=== PATIENT | female | born 1995 | race Caucasian/White ===

== ENCOUNTER 2018-01-21 23:08 | Emergency (ER) | payer SELFPAY ==
[~2018-01-21] VITALS: Ht 154.9 cm; Wt 82.6 kg
[~2018-01-21 23:08] MED LIST: CEPH-38 PO; NAPR-243 PO; ONDA8TAB13 PO; PHEN100T17 PO
--- OUTSIDE RECORDS SUMMARY | 2018-01-21 23:34 | XMS REPORT ---
Author Author MAYA MURRIETA Organization 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 [address] [address] Nov, Rash R21 ; Menstrual irregularity N92.6 and Dysthymia F34.1 [facility] [address] [id number] [place] [address] Oct, Acute nasopharyngitis J00 [facility] [id number] [place] [address] Aug, Dysthymia F34.1 and Mentally challenged F79 [facility] [id number] [place] [address] Jul, Dysthymia F34.1 and Dysfunctional uterine bleeding N93.8 [facility] [id number] [place] [address] June, Fever blister B00.1 [facility] [id number] [place] [address] Aug, Lower abdominal pain R10.30 and Acute cystitis without hematuria N30.00 [facility] [id number] [place] [address] May, Urinary tract infection without hematuria, site unspecified N39.0 [facility] [address] [address] 07 May, 2016 Vomiting R11.10 ; Dysuria R30.0 and Acute cystitis without hematuria N30.00 [facility] [address] [address] 17 Sep, 2015 Encounter for immunization Z23 [facility] [address] [id number] [id number] 26 May, 2015 Dental examination Z01.20 [facility] [id number] [place] [address] 15 May, 2015 Encounter for observation for other suspected diseases and conditions ruled out Z03.89 [facility] [address] [place] [address] 14 Apr, 2015 Sports physical Z02.5 ; Dietary counseling Z71.3 ; Exercise counseling Z71.89 ; Encounter for well child visit with abnormal findings Z00.121 ; Allergic rhinitis, unspecified J30.9 ; Postnasal drip R09.82 ; Obesity , unspecified obesity severity, unspecified obesity type E66.9 ; Acanthosis nigricans L83 and Encounter for immunization Z23 [facility] [address] [address] 20 Nov, 2008 IMMUNIZATIONS No Known Immunizations SOCIAL HISTORY Never Assessed REASON FOR VISIT sores on arms - mostly on left arm but some on right - x1 1/2 week kPage ANNI , wants test - says store brand showed positive Katie MA PLAN OF CARE Activity Details Follow Up 6 Months Reason: VITAL SIGNS Height 63.5 in 2017-11-21 Weight 190.8 lbs 2017-11-21 Temperature 97.8 degrees Fahrenheit 2017-11-21 Heart Rate 83 bpm 2017-11-21 Respiratory Rate 18 2017-11-21 BMI 33.26 kg/m2 2017-11-21 Blood pressure systolic 116 mmHg 2017-11-21 Blood pressure diastolic 68 mmHg 2017-11-21 MEDICATIONS Medication Instructions Dosage Frequency Start Date End Date Duration Status Zoloft 100 mg Orally Once a day 1 tablet 24h 28 Jul, 2017 30 day(s) Active Triamcinolone Acetonide 0.1 % Externally Twice a day 1 application to affected area 12h 12 Nov, 2017 Active Bromfed DM 30-2-10 MG/5ML Orally every 4 hrs 10 ml as needed 4h 10 Oct, 2017 5 days Active RESULTS Name Result Date Reference Range TEST, URINE (IN HOUSE) 2017-11-21 RESULTS neg Lot # [id number] Control positive Exp date 05/11/2019 PROCEDURES Procedure Date Ordered Result Body Site URINE TEST Nov 21, 2017 INSTRUCTIONS MEDICATIONS ADMINISTERED No Known Medications MEDICAL (GENERAL) HISTORY Type Description Date Medical History depression Surgical History Tonsillectomy 02/2002
--- OUTSIDE RECORDS SUMMARY | 2018-01-21 23:35 | XMS REPORT ---
Author MYLA Benson [facility] eClinicalWorks Address Unknown Phone Unavailable Care Team Providers Care Measuring Machine Operator Name Role Phone MYLA MELGAR Unavailable Allergies No Known Allergies Problems Problem Type Condition Code Onset Dates Condition Status Assessment Encounter for immunization Z23 Active Medications No Known Medications Procedures Procedure Coding System Code Date BEXSERO (MEN B) CPT-4 23901 Sep 27, 2015 GARDISIL 9 CPT-4 71720 Sep 27, 2015 MENINGOCOCCAL (MENVEO) CPT-4 53014 Sep 27, 2015 IMMUNIZATION ADMIN, EACH ADD (please include units) CPT-4 80466 Sep 27, 2015 SINGLE IMMUNIZATION ADMIN CPT-4 79220 Sep 27, 2015 Results No Known Results Immunizations Vaccine Administration Date MENINGOCOCCAL (MENVEO) Sep 27, 2015 BEXSERO (MEN B) Sep 27, 2015 GARDASIL 9 Sep 27, 2015 Summary Purpose eClinicalWorks Submission
--- OUTSIDE RECORDS SUMMARY | 2018-01-21 23:35 | XMS REPORT ---
Author Author MAYA MURRIETA [facility] Address [address] [place] [address] Care Team Providers Care Network Services Project Manager Name Role Phone MAYA MURRIETA Unavailable PROBLEMS Type Condition ICD9-CM Code [id number] Code Onset Dates Condition Status SNOMED Code Problem Mentally challenged F79 Active 218794184 Problem Dysthymia F34.1 Active 10590818 Problem Dysfunctional uterine bleeding N93.8 Active 20600606 ALLERGIES No Known Allergies ENCOUNTERS Encounter Location Date Diagnosis [place] [address] [address] Aug, Dysthymia F34.1 and Mentally challenged F79 [facility] [address] [address] Jul, Dysthymia F34.1 and Dysfunctional uterine bleeding N93.8 [facility] [address] [address] June, Fever blister B00.1 [facility] [address] [address] Aug, Lower abdominal pain R10.30 and Acute cystitis without hematuria N30.00 [facility] [address] [address] May, Urinary tract infection without hematuria, site unspecified N39.0 [place] [address] [address] May, Vomiting R11.10 ; Dysuria R30.0 and Acute cystitis without hematuria N30.00 [place] [address] [address] Sep, Encounter for immunization Z23 [facility] [address] [id number] [id number] May, Dental examination Z01.20 [facility] [address] [facility] [id number] [address] 15 May, 2015 Encounter for observation for other suspected diseases and conditions ruled out Z03.89 [facility] [address] [facility] [id number], [place] [address] 14 Apr, 2015 Sports physical Z02.5 ; Dietary counseling Z71.3 ; Exercise counseling Z71.89 ; Encounter for well child visit with abnormal findings Z00.121 ; Allergic rhinitis, unspecified J30.9 ; Postnasal drip R09.82 ; Obesity , unspecified obesity severity, unspecified obesity type E66.9 ; Acanthosis nigricans L83 and Encounter for immunization Z23 [facility] [address] [facility] [id number], [place] [address] Nov, IMMUNIZATIONS No Known Immunizations SOCIAL HISTORY Never Assessed REASON FOR VISIT Establish Care, PT has questions about fertility and wanting a note to give to her landlord stating she can have a dog-[place] PLAN OF CARE Activity Details Follow Up 4 Weeks Reason: VITAL SIGNS Height 63.5 in 2017-08-07 Weight 195.6 lbs 2017-08-07 Temperature 98.2 degrees Fahrenheit 2017-08-07 Heart Rate 80 bpm 2017-08-07 Respiratory Rate 18 2017-08-07 BMI 34.1 kg/m2 2017-08-07 Blood pressure systolic 104 mmHg 2017-08-07 Blood pressure diastolic 76 mmHg 2017-08-07 MEDICATIONS Medication Instructions Dosage Frequency Start Date End Date Duration Status Amoxicillin 500 MG by oral route 2 times a day 1 capsule 12h Active Ibuprofen 800 MG by oral route 3 times a day 1 tablet 8h Active Zoloft 50 mg Orally Once a day 1 tablet 24h Jul, 30 day(s) Active RESULTS No Results PROCEDURES No Known procedures INSTRUCTIONS MEDICATIONS ADMINISTERED No Known Medications MEDICAL (GENERAL) HISTORY Type Description Date Medical History depression Surgical History Tonsillectomy 02/2002
--- OUTSIDE RECORDS SUMMARY | 2018-01-21 23:35 | XMS REPORT ---
Author BETITO [facility] eClinicalWorks Address Unknown Phone Unavailable Care Team Providers Care Accounting Clerk Name Role Phone BETITO SALINAS CP Unavailable Allergies, Adverse Reactions, Alerts Substance Reaction Event Type N.K.D.A. Info Not Available Non Drug Allergy Problems Problem Type Condition Code Onset Dates Condition Status Assessment Dental examination Z01.20 Active Medications Medication Code System Code Instructions Start Date End Date Status Dosage Ibuprofen NDC 0 [place] [address]-82 10 MG Orally Once a day 1 tablet Procedures Procedure Coding System Code Date SEALANT - PER TOOTH CPT-4 D1351 June 06, 2015 SEALANT - PER TOOTH CPT-4 D1351 June 06, 2015 PROPHYLAXIS - ADULT CPT-4 D1110 June 06, 2015 SEALANT - PER TOOTH CPT-4 D1351 June 06, 2015 SEALANT - PER TOOTH CPT-4 D1351 June 06, 2015 TOPICAL FLUORIDE VARNISH CPT-4 D1206 June 06, 2015 SEALANT - PER TOOTH CPT-4 D1351 June 06, 2015 SEALANT - PER TOOTH CPT-4 D1351 June 06, 2015 SEALANT - PER TOOTH CPT-4 D1351 June 06, 2015 SEALANT - PER TOOTH CPT-4 D1351 June 06, 2015 Results No Known Results Summary Purpose eClinicalWorks Submission
--- OUTSIDE RECORDS SUMMARY | 2018-01-21 23:35 | XMS REPORT ---
Author Author MAYA MURRIETA Organization [facility] Address [address] [place] [address] Care Team Providers Care Repair Coil Winder Name Role Phone MAYA MURRIETA Unavailable PROBLEMS Unknown Problems ALLERGIES No Known Allergies ENCOUNTERS Encounter Location Date Diagnosis [address] [address] Aug, Lower abdominal pain R10.30 and Acute cystitis without hematuria N30.00 [place] [id number] [place] [address] 10 May, 2016 Urinary tract infection without hematuria, site unspecified N39.0 [place] [id number] [place] [address] 07 May, 2016 Vomiting R11.10 ; Dysuria R30.0 and Acute cystitis without hematuria N30.00 [place] [id number] [place] [address] 17 Sep, 2015 Encounter for immunization Z23 [place] [address] [id number] [id number] 26 May, 2015 Dental examination Z01.20 [facility] [address] [id number] [place] [address] 15 May, 2015 Encounter for observation for other suspected diseases and conditions ruled out Z03.[address] [address] 14 Apr, 2015 Sports physical Z02.5 ; Dietary counseling Z71.3 ; Exercise counseling Z71.89 ; Encounter for well child visit with abnormal findings Z00.121 ; Allergic rhinitis, unspecified J30.9 ; Postnasal drip R09.82 ; Obesity , unspecified obesity severity, unspecified obesity type E66.9 ; Acanthosis nigricans L83 and En[facility] for [facility] Z23 [facility] [address] [facility] [id number] [address] Nov, IMMUNIZATIONS No Known Immunizations SOCIAL HISTORY Never Assessed REASON FOR VISIT stomach pain x 5 days. Pt states that she is moving her bowels alright. She did take a test at a facility 2 days ago and it was negative. They told her to try again in 2 weeks. Pt has been vomiting off and on during this time. SNEHA Stanley PLAN OF CARE Activity Details Follow Up prn Reason: VITAL SIGNS Height 63.5 in 2016-08-30 Weight 188 lbs 2016-08-30 Temperature 97.9 degrees Fahrenheit 2016-08-30 Heart Rate 88 bpm 2016-08-30 Respiratory Rate 18 2016-08-30 BMI 32.78 kg/m2 2016-08-30 Blood pressure systolic 116 mmHg 2016-08-30 Blood pressure diastolic 78 mmHg 2016-08-30 MEDICATIONS Medication Instructions Dosage Frequency Start Date End Date Duration Status Bactrim DS 800-160 MG Orally Twice a day 1 tablet 12h Aug,Aug 03 days Active Iron (Ferrous Sulfate) 142 (45 Fe) MG Orally Once a day 1 tablet 24h Active RESULTS No Results PROCEDURES Procedure Date Ordered Result Body Site URINALYSIS, AUTO, W/O SCOPE August 30, 2016 INSTRUCTIONS MEDICATIONS ADMINISTERED No Known Medications MEDICAL (GENERAL) HISTORY Type Description Date Surgical History Tonsillectomy
--- OUTSIDE RECORDS SUMMARY | 2018-01-21 23:35 | XMS REPORT | Continuity of Care Document ---
Author Author [facility] Organization [facility] Address Unknown Phone Unavailable Allergies Active Description Code Type Severity Reaction Onset Reported/Identified Relationship to Patient Clinical Status Yes NO KNOWN DRUG ALLERGIES NO KNOWN DRUG ALLERG UNKNOWN Yes NO KNOWN DRUG ALLERGIES UNKNOWN NO KNOWN DRUG ALLERG Yes No Known Drug Allergies [id number] Drug Allergy Unknown N/A 06/18/2014 Medications Medication Packaging Start Date Stop Date Route Dosage Sig IBUPROFEN TAB 600 MG (MOTRIN) MG 03/17/2016 PRN ONCE FAMOTIDINE TAB 20 MG (PEPCID) MG 06/16/2016 ONCE&1638 GI COCKTAIL SINGLE DOSE LIQ (GRASSHOPPER) ML 06/27/2016 06/27/2016 ONCE&2224 GI COCKTAIL SINGLE DOSE LIQ (GRASSHOPPER) ML 05/15/2017 05/15/2017 ONCE&0932 DIPHENHYDRAMINE CAP 25 MG (BENADRYL) MG 05/25/2017 05/25/2017 PRN ONCE METHYLPREDNISOLONE VIAL INJ 125 MG/2CC (SOLU-MEDROL VIAL) MG 05/25/2017 05/25/2017 ONCE&0132 Problems Date Dx Coded Attending Type Code Diagnosis Diagnosed By 06/18/2014 FLOYD ALLEN Ot 599.70 HEMATURIA, UNSPECIFIED 06/18/2014 FLOYD ALLEN Ot 788.0 RENAL COLIC 03/17/2016 SEB KIRK 074.0 HERPANGINA 03/17/2016 SEB KIRK B08.5 ENTEROVIRAL VESICULAR PHARYNGITIS 06/16/2016 SEB KIRK 285.9 ANEMIA, UNSPECIFIED 06/16/2016 SEB KIRK 558.9 OTHER AND UNSPECIFIED NONINFECTIOUS GASTROENTERITIS AND COLITIS 06/16/2016 SEB KIRK D64.9 ANEMIA, UNSPECIFIED 06/16/2016 SEB KIRK K52.9 NONINFECTIVE GASTROENTERITIS AND COLITIS, UNSPECIFIED 06/27/2016 Anika Horvath A 535.00 ACUTE GASTRITIS, WITHOUT MENTION OF HEMORRHAGE 06/27/2016 Anika Horvath Sorin K29.00 ACUTE GASTRITIS WITHOUT BLEEDING 05/15/2017 Reggie Maradiaga 599.0 URINARY TRACT INFECTION, SITE NOT SPECIFIED 05/15/2017 Reggie Maradiaga N39.0 URINARY TRACT INFECTION, SITE NOT SPECIFIED 05/25/2017 Jcarlos Segal 599.0 URINARY TRACT INFECTION, SITE NOT SPECIFIED 05/25/2017 Jcarlos Segal 693.0 DERMATITIS DUE TO DRUGS AND MEDICINES TAKEN INTERNALLY 05/25/2017 Jcarlos Segal 995.29 UNSPECIFIED ADVERSE EFFECT OF OTHER DRUG, MEDICINAL AND BIOLOGICAL SUBSTANCE 05/25/2017 Jcarlos Segal L27.0 GEN SKIN ERUPTION DUE TO DRUGS AND MEDS TAKEN INTERNALLY 05/25/2017 Jcarlos Segal N39.0 URINARY TRACT INFECTION, SITE NOT SPECIFIED 05/25/2017 Jcarlos Segal T36.95XA ADVERSE EFFECT OF UNSP SYSTEMIC ANTIBIOTIC, INIT ENCNTR Procedures There is no data. Results Test Result Range Influenza - 03/17/16 15:12 Influenza NEGATIVE FOR A and B 0.00-0.00 Urinalysis - 03/17/16 15:20 Icotest N/A Negative Urine Volume Urine Volume Sufficient (10mL) Urine Yeast No Yeast present Urine-Appearance Cloudy Clear Urine-Bacteria Negative Urine-Bilirubin Negative Negative Urine-Blood 3+ Negative Urine-Color Red Colorless-Lt. Yellow Urine-Glucose Negative Negative Urine-Ketones Negative Negative Urine-Leukocytes Trace Negative Urine-Mucus 1+ Urine-Nitrite Negative Negative Urine-Other Urine Saved if Culture Needed (48hrs from time of collection) Urine-pH 6.0 5-8.5 Urine-Protein 1+ Negative Urine-RBC TNTC Urine-Specific Frakes 1.025 1.000-1.030 Urine-WBC 2-5/HPF Urobilinogen 1.0 E.U./dL 0.2-1.0 Comprehensive Metabolic Panel - 06/16/16 16:35 Albumin 4.2 g/dL 3.6-5.1 ALP 89 U/L 35-130 ALT 25 U/L 6-45 Anion Gap 15 6-14 AST 15 U/L 2-40 BUN 10 mg/dL 5-25 Calcium 9.5 mg/dL 8.3-10.4 Chloride 105 mmol/L 95-114 CO2 26 mEq/L 22-33 Creat 0.66 mg/dL 0.50-1.50 eGFR 116 mL/min/1.73m2 >59 Globulin 3.2 g/dL 2.3-3.5 Glucose 113 mg/dL 70-110 Osmo 293 280-295 Potassium 3.7 mmol/L 3.5-5.3 Sodium 142 mmol/L 134-148 TBil 0.2 mg/dL 0.2-1.2 TP 7.4 g/dL 6.0-8.3 Lipase - 06/16/16 16:35 Lipase 11 U/L 7-59 Urinalysis - 06/16/16 16:45 Icotest N/A Negative Urine Volume Urine Volume Sufficient (10mL) Urine Yeast No Yeast present Urine-Appearance Clear Clear Urine-Bacteria 1+ Urine-Bilirubin Negative Negative Urine-Blood Negative Negative Urine-Color Yellow Colorless-Lt. Yellow Urine-Epithelial Cells 0-5/HPF Urine-Glucose Negative Negative Urine-Ketones Negative Negative Urine-Leukocytes Negative Negative Urine-Nitrite Negative Negative Urine-pH 7.0 5-8.5 Urine-Protein Negative Negative Urine-RBC 0-2/HPF Urine-Specific Frakes 1.020 1.000-1.030 Urine-WBC 0-2/HPF Urobilinogen 0.2 E.U./dL 0.2-1.0 IFOBT Occult Blood - 06/16/16 17:11 IFOBT Occult Blood NEGATIVE Negative Comprehensive Metabolic Panel - 06/27/16 22:00 Albumin 3.8 g/dL 3.6-5.1 ALP 83 U/L 35-130 ALT 21 U/L 6-45 Anion Gap 13 6-14 AST 14 U/L 2-40 BUN 6 mg/dL 5-25 Calcium 9.1 mg/dL 8.3-10.4 Chloride 107 mmol/L 95-114 CO2 26 mEq/L 22-33 Creat 0.65 mg/dL 0.50-1.50 eGFR 118 mL/min/1.73m2 >59 Globulin 3.7 g/dL 2.3-3.5 Glucose 106 mg/dL 70-110 Osmo 293 280-295 Potassium 3.4 mmol/L 3.5-5.3 Sodium 143 mmol/L 134-148 TBil 0.3 mg/dL 0.2-1.2 TP 7.5 g/dL 6.0-8.3 Urinalysis - 05/15/17 09:16 Icotest N/A Negative Urine Volume Urine Volume Sufficient (10mL) Urine Yeast Yeast Present Urine-Appearance Cloudy Clear Urine-Bacteria 4+ Urine-Bilirubin Negative Negative Urine-Blood Negative Negative Urine-Color Yellow Colorless-Lt. Yellow Urine-Epithelial Cells TNTC Urine-Glucose Negative Negative Urine-Ketones Negative Negative Urine-Leukocytes 1+ Negative Urine-Mucus 4+ Urine-Nitrite Negative Negative Urine-Other Culture to follow Urine-pH 5.5 5-8.5 Urine-Protein Trace Negative Urine-RBC Rare/HPF Urine-Specific Frakes >=1.030 1.000-1.030 Urine-WBC TNTC Urobilinogen 0.2 E.U./dL 0.2-1.0 Urine Culture - 05/15/17 09:16 PRELIM CULTURE RESULTS 20,000-50,000 Yeast FINAL CULTURE RESULTS 20,000-50,000 Yeast. No Further Workup done. MEDIA PLATED Setup at 09:37 on 05/15/2017 CULTURE SOURCE void Urine Culture - 05/25/17 01:37 PRELIM CULTURE RESULTS 20,000-50,000 Gram Positive Mixed Yesy [id number] Skin Contaminant FINAL CULTURE RESULTS No Further Workup done MEDIA PLATED Setup at 02:11 on 05/25/2017 CULTURE SOURCE voided urine Urinalysis - 05/25/17 01:37 Icotest N/A Negative Urine Crystals Amorphous material: few/HPF Urine Volume Urine Volume Sufficient (10mL) Urine-Appearance Turbid Clear Urine-Bacteria Trace Urine-Bilirubin Negative Negative Urine-Blood Negative Negative Urine-Color Yellow Colorless-Lt. Yellow Urine-Epithelial Cells TNTC Urine-Glucose Negative Negative Urine-Ketones Negative Negative Urine-Leukocytes 1+ Negative Urine-Mucus 1+ Urine-Nitrite Negative Negative Urine-Other Urine Saved if Culture Needed (48hrs from time of collection) Urine-pH 5.5 5-8.5 Urine-Protein Trace Negative Urine-RBC 0-2/HPF Urine-Specific Frakes >=1.030 1.000-1.030 Urine-WBC TNTC Urobilinogen 0.2 0.2-1.0 Encounters ACCT No. Visit Date/Time Discharge Status Pt. Type Provider Facility Loc./Unit Complaint [id number] 06/18/2014 20:00:00 06/18/2014 23:34:00 DIS Emergency FLOYD ALLEN [facility] ER BLOOD IN URINE [id number] 01/21/2018 23:11:00 ACT Emergency LOKESH ALMONTE MD [facility] ER V,DIARRHEA [facility] 06/19/2014 02:12:34 ACT Document Registration [id number] 05/25/2017 01:04:00 05/25/2017 02:14:00 [id number] 05/15/2017 08:50:00 05/15/2017 08:55:00 DIS Outpatient [facility] [id number] 06/27/2016 21:30:00 06/27/2016 23:00:00 DIS Outpatient Anika Horvath [facility] ER [id number] 06/16/2016 16:00:00 06/16/2016 18:35:00 DIS Outpatient YELENA SEB [facility] ER [id number] 03/17/2016 14:12:00 03/17/2016 16:30:00 DIS Outpatient SEB KIRK [id number] 03/17/2016 16:09:05 Document Registration [id number] 09/05/2017 14:00:00 09/05/2017 23:59:59 CLS Outpatient GLENNY CACERES, MAYA TIMMONS [facility]
--- OUTSIDE RECORDS SUMMARY | 2018-01-21 23:35 | XMS REPORT ---
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 Active 14128483 ALLERGIES No Known Allergies ENCOUNTERS Encounter Location Date Diagnosis [facility] [address] [address] Oct, Acute nasopharyngitis J00 [facility] [address] [address] Aug, Dysthymia F34.1 and Mentally challenged F79 [facility] [address] [address] Jul, Dysthymia F34.1 and Dysfunctional uterine bleeding N93.8 [facility] [address] [address] June, Fever blister B00.1 [facility] [address] [address] Aug, Lower abdominal pain R10.30 and Acute cystitis without hematuria N30.00 [place] [address] [address] May, Urinary tract infection without hematuria, site unspecified N39.0 [place] [address] [address] May, Vomiting R11.10 ; Dysuria R30.0 and Acute cystitis without hematuria N30.00 [facility] [address] [facility] [id number] [address] 17 Sep, 2015 Encounter for immunization Z23 [facility] [address] [id number] [id number] 26 May, 2015 Dental examination Z01.20 [facility] [address] [facility] [id number], [place] [address] 15 May, 2015 Encounter for observation for other suspected diseases and conditions ruled out Z03.89 [facility] [address] [facility] [id number], [place] [address] 14 Apr, 2015 Sports physical Z02.5 ; Dietary counseling Z71.3 ; Exercise counseling Z71.89 ; Encounter for well child visit with abnormal findings Z00.121 ; Allergic rhinitis, unspecified J30.9 ; Postnasal drip R09.82 ; Obesity , unspecified obesity severity, unspecified obesity type E66.9 ; Acanthosis nigricans L83 and Encounter for immunization Z23 [facility] [address] [facility] [id number], [place] [address] 20 Nov, 2008 IMMUNIZATIONS No Known Immunizations SOCIAL HISTORY Never Assessed REASON FOR VISIT Depression, PT is no longer doing therapy-Alison [place] PLAN OF CARE Activity Details Follow Up 4 Weeks Reason: VITAL SIGNS Height 63.5 in 2017-09-05 Weight 195.2 lbs 2017-09-05 Temperature 98.3 degrees Fahrenheit 2017-09-05 Heart Rate 88 bpm 2017-09-05 Respiratory Rate 20 2017-09-05 BMI 34.03 kg/m2 2017-09-05 Blood pressure systolic 106 mmHg 2017-09-05 Blood pressure diastolic 70 mmHg 2017-09-05 MEDICATIONS Medication Instructions Dosage Frequency Start Date End Date Duration Status Zoloft 100 MG Orally Once a day 1 tablet 24h Jul, 30 day(s) Active RESULTS No Results PROCEDURES No Known procedures INSTRUCTIONS MEDICATIONS ADMINISTERED No Known Medications MEDICAL (GENERAL) HISTORY Type Description Date Medical History depression Surgical History Tonsillectomy 02/2002
--- OUTSIDE RECORDS SUMMARY | 2018-01-21 23:35 | XMS REPORT ---
Author Author ARYA EVANS [facility] eClinicalWorks Address Unknown Phone Unavailable Care Team Providers Care Shellfish Manager Name Role Phone ARYA EVANS CP Unavailable Allergies, Adverse Reactions, Alerts Substance Reaction Event Type N.K.D.A. Info Not Available Non Drug Allergy Problems Problem Type Condition Code Onset Dates Condition Status Assessment Encounter for observation for other suspected diseases and conditions ruled out Z03.89 Active Medications No Known Medications Procedures Procedure Coding System Code Date Office Visit, Est Pt., Level 2 CPT-4 63913 May 26, 2015 Vital Signs Date/Time: May 26, 2015 Temperature 97.4 F BMIPercentile 97.24 % Weight 189.2 lbs Height 63.5 in BMI 32.99 Index Blood Pressure Diastolic 70 mmHg Blood Pressure Systolic 114 mmHg Cardiac Monitoring Heart Rate 88 bpm Wt Percentile 96.81 % Ht Percentile 39.5 % Results No Known Results Summary Purpose eClinicalWorks Submission
--- OUTSIDE RECORDS SUMMARY | 2018-01-21 23:35 | XMS REPORT ---
Author Author MORENO LIAO [facility] Address [address] [place] [address] Care Team Providers Care Ship Liner Name Role Phone MORENO LIAO Unavailable PROBLEMS Type Condition ICD9-CM Code [id number] Code Onset Dates Condition Status SNOMED Code Problem Mentally challenged F79 Active 591600541 Problem Dysthymia F34.1 Active 84363055 Problem Dysfunctional uterine bleeding N93.8 Active 34703344 ALLERGIES No Known Allergies ENCOUNTERS Encounter Location Date Diagnosis [place] [id number] [address] Sep, [place] [address] [address] Aug, Dysthymia F34.1 and Mentally challenged F79 [facility] [address] [address] Jul, Dysthymia F34.1 and Dysfunctional uterine bleeding N93.8 [facility] [address] [place] [id number] [place] [address] June, Fever blister B00.1 [place] [address] [address] Aug, Lower abdominal pain R10.30 and Acute cystitis without hematuria N30.00 [place] [address] [address] May, Urinary tract infection without hematuria, site unspecified N39.0 [place] [address] [place] [id number] [place] [address] May, Vomiting R11.10 ; Dysuria R30.0 and Acute cystitis without hematuria N30.00 [facility] [address] [facility] [id number] [address] 17 Sep, 2015 Encounter for immunization Z23 [facility] [address] [id number] [id number] May, Dental examination Z01.20 [facility] [address] [facility] [id number] [address] 15 May, 2015 Encounter for observation for other suspected diseases and conditions ruled out Z03.89 [facility] [address] [facility] [id number] [address] 14 Apr, 2015 Sports physical Z02.5 ; Dietary counseling Z71.3 ; Exercise counseling Z71.89 ; Encounter for well child visit with abnormal findings Z00.121 ; Allergic rhinitis, unspecified J30.9 ; Postnasal drip R09.82 ; Obesity , unspecified obesity severity, unspecified obesity type E66.9 ; Acanthosis nigricans L83 and Encounter for immunization Z23 [facility] [address] [facility] [id number] [address] 20 Nov, 2008 IMMUNIZATIONS No Known Immunizations SOCIAL HISTORY Never Assessed REASON FOR VISIT sore on lip Pt c/o sore on the inside of lip for 2 days after fever ANNI Lynch PLAN OF CARE Activity Details Follow Up prn Reason: VITAL SIGNS Height 63.5 in 2017-06-12 Weight 197.6 lbs 2017-06-12 Temperature 98.2 degrees Fahrenheit 2017-06-12 Heart Rate 90 bpm 2017-06-12 Respiratory Rate 18 2017-06-12 BMI 34.45 kg/m2 2017-06-12 Blood pressure systolic 118 mmHg 2017-06-12 Blood pressure diastolic 64 mmHg 2017-06-12 MEDICATIONS Medication Instructions Dosage Frequency Start Date End Date Duration Status Claritin 10 MG Orally Once a day 1 tablet 24h Not-Taking Bactrim DS 800-160 mg Orally Twice a day 1 tablet 12h 07 May, 2016 05 days Not-Taking Iron (Ferrous Sulfate) 142 (45 Fe) MG Orally Once a day 1 tablet 24h Not-Taking Ibuprofen Not-Taking RESULTS No Results PROCEDURES No Known procedures INSTRUCTIONS MEDICATIONS ADMINISTERED No Known Medications MEDICAL (GENERAL) HISTORY Type Description Date Medical History depression Surgical History Tonsillectomy 02/2002
[2018-01-22 00:40] LABS: BASOPHILS % (AUTO) 0 % (0-10); EOSINOPHILS # (AUTO) 0.5 10^3/uL (0.0-0.3); EOSINOPHILS % (AUTO) 4 % (0-10); HEMATOCRIT 36 % (35-52); HEMOGLOBIN 11.6 G/DL (11.5-16.0); LYMPHOCYTES # (AUTO) 3.8 X 10^3 (1.0-4.0); LYMPHOCYTES % (AUTO) 32 % (12-44); MEAN CORPUSCULAR HEMOGLOBIN 24 PG (25-34); MEAN CORPUSCULAR HGB CONC 32 G/DL (32-36); MEAN CORPUSCULAR VOLUME 75 FL (80-99); MONOCYTES # (AUTO) 0.6 X 10^3 (0.0-1.0); MONOCYTES % (AUTO) 5 % (0-12); NEUTROPHILS % (AUTO) 59 % (42-75); PLATELET COUNT 302 10^3/uL (130-400); RED CELL DISTRIBUTION WIDTH 15.6 % (10.0-14.5); WHITE BLOOD COUNT 11.9 10^3/uL (4.3-11.0)
[2018-01-22 00:45] LABS: BILIRUBIN,URINE NEGATIVE (NEGATIVE); CLARITY,URINE SLIGHTLY CLOUDY; COLOR,URINE YELLOW; GLUCOSE, URINE (UA) NEGATIVE (NEGATIVE); KETONES,URINE NEGATIVE (NEGATIVE); LEUKOCYTE ESTERASE ,URINE 2+ (NEGATIVE); NITRITE,URINE NEGATIVE (NEGATIVE); PH,URINE 6.5 (5-9); PROTEIN,URINE NEGATIVE (NEGATIVE); UROBILINOGEN,URINE NORMAL (NORMAL)
[2018-01-22] MEDS ORDERED: ONDANSETRON 4 MG/2 ML (SDV) Z0FRAN IVP ONE (00:45)
[2018-01-22] MEDS ORDERED: FAMOTIDINE 20MG/2ML IV (PEPCID) IVP ONE (00:45)
[2018-01-22 00:54] LABS: ALANINE AMINOTRANSFERASE 17 U/L (0-55); ALBUMIN 4.4 GM/DL (3.2-4.5); ALKALINE PHOSPHATASE 85 U/L (40-136); BILIRUBIN,TOTAL 0.2 MG/DL (0.1-1.0); BUN/CREATININE RATIO 12; CALCIUM 9.5 MG/DL (8.5-10.1); CARBON DIOXIDE 19 MMOL/L (21-32); CHLORIDE 107 MMOL/L (98-107); CREATININE SERUM 0.65 MG/DL (0.60-1.30); GFR ESTIMATED > 60; GLUCOSE 97 MG/DL (70-105); LIPASE 10 U/L (8-78); POTASSIUM 3.5 MMOL/L (3.6-5.0); SODIUM 140 MMOL/L (135-145); TOTAL PROTEIN 7.1 GM/DL (6.4-8.2)
[2018-01-22 01:00] LABS: BACTERIA,URINE TRACE /HPF; RBC,URINE 0-2 /HPF
[2018-01-22] MEDS ORDERED: CEPH-507 PO (01:36)
--- NOTE | 2018-01-22 01:36 | ED GI ---
General Chief Complaint: Abdominal/GI Problems Stated Complaint: V,DIARRHEA Source of Information: Patient, Family Exam Limitations: No Limitations History of Present Illness Date Seen by Provider: Jan 22, 2018 Time Seen by Provider: 00:24 Initial Comments This 22-year-old woman presents to the emergency room accompanied by her mother complaining of nausea, vomiting, and diarrhea. She also states she believes there was blood in her emesis and in her stool. She did not make this, it, however, until her sister came into the room and stated she once had blood in her emesis. She reports symptoms started 2-3 hours ago. She also states she had a syncopal episode at home. Nursing staff report that when she entered the room patient would not respond to her by voice. However, she responded very quickly and easily to sternal rub. I am suspicious of some attention seeking behavior as patient also had anticipatory guarding and wincing prior to my exam. However, after my exam she was laughing and carrying on any loud verbal conversation with her sister. Mother reports she has not seen the patient for a few days. Mother also reports patient is in a relationship with multiple boys who are providing for her attention. Allergies and Home Medications Allergies Coded Allergies: No Known Drug Allergies (Unverified , 06/18/14) Home Medications Cephalexin 500 Mg Capsule, 500 MG PO TID Prescribed by: LOKESH WHITE on 01/22/18 0136 Cephalexin Monohydrate 500 Mg Capsule, 1 EACH PO TID Prescribed by: FLOYD MEMBRENO on 06/18/142329 Naproxen 500 Mg Tablet, 1 EACH PO BID PRN for PAIN Prescribed by: FLOYD MEMBRENO on 06/18/142329 Ondansetron 8 Mg Tab.rapdis, 8 MG PO Q6H PRN for NAUSEA/VOMITING Prescribed by: FLOYD MEMBRENO on 06/18/14 233 Phenazopyridine Hcl 100 Mg Tablet, 1 EACH PO TID PRN PRN for PAIN Prescribed by: FLOYD MEMBRENO on 06/18/142329 Patient Home Medication List Home Medication List Reviewed: Yes Review of Systems Review of Systems Constitutional: no symptoms reported EENTM: No Symptoms Reported Respiratory: No Symptoms Reported Cardiovascular: See HPI Gastrointestinal: See HPI Genitourinary: No Symptoms Reported Musculoskeletal: no symptoms reported Skin: no symptoms reported Psychiatric/Neurological: No Symptoms Reported Endocrine: No Symptoms Reported Hematologic/Lymphatic: No Symptoms Reported Past Eldzjhr-Axlbqx-Xagjjl Hx Past Med/Social Hx: Reviewed and Corrections made Patient Social History Recent Foreign Travel: No Contact w/Someone Who Travel: No Immunizations Up To Date PED Vaccines UTD: Yes Seasonal Allergies Seasonal Allergies: No Past Medical History Surgeries: No Respiratory: No Cardiac: No Neurological: No : No Reproductive Disorders: No Genitourinary: No Gastrointestinal: No Musculoskeletal: No Endocrine: No HEENT: No Cancer: No Psychosocial: Yes Depression Adverse Reaction/Blood Tranf: No Family Medical History Reviewed Nursing Family Hx No Pertinent Family Hx Physical Exam Vital Signs Vital Signs - First Documented 01/21/18 23:30 Temp 98.8 Pulse 78 Resp 18 B/P (MAP) 132/79 (96) Pulse Ox 96 O2 Delivery Room Air Capillary Refill : Height/Weight/BMI Height: 5'1" Weight: 180lbs. oz. 81.326735dr; BMI Method:Stated General Appearance: WD/WN, no apparent distress HEENT: PERRL/EOMI, normal ENT inspection Respiratory: lungs clear, normal breath sounds, no respiratory distress Cardiovascular: regular rate, rhythm, no edema, no murmur Gastrointestinal: normal bowel sounds, soft, tenderness (Epigastric) Extremities: normal inspection, no pedal edema Neurologic/Psychiatric: cable testers helper II-XII nml as tested, no motor/sensory deficits, alert, normal mood/affect, oriented x 3 Skin: normal color, warm/dry Progress/Results/Core Measures Results/Orders Lab Results Laboratory Tests Test 01/21/18 23:34 01/21/18 23:50 01/22/18 00:15 01/22/18 01:23 Range/Units Glucometer 117 H 70-110 MG/DL White Blood Count 11.9 H 4.3-11.0 10^3/uL Red Blood Count 4.80 4.35-5.85 10^6/uL Hemoglobin 11.6 11.5-16.0 G/DL Hematocrit 36 35-52 % Mean Corpuscular Volume 75 L 80-99 FL Mean Corpuscular Hemoglobin 24 L 25-34 PG Mean Corpuscular Hemoglobin Concent 32 32-36 G/DL Red Cell Distribution Width 15.6 H 10.0-14.5 % Platelet Count 302 130-400 10^3/uL Mean Platelet Volume 13.0 H 7.4-10.4 FL Neutrophils (%) (Auto) 59 42-75 % Lymphocytes (%) (Auto) 32 12-44 % Monocytes (%) (Auto) 5 0-12 % Eosinophils (%) (Auto) 4 0-10 % Basophils (%) (Auto) 0 0-10 % Neutrophils # (Auto) 7.0 1.8-7.8 X 10^3 Lymphocytes # (Auto) 3.8 1.0-4.0 X 10^3 Monocytes # (Auto) 0.6 0.0-1.0 X 10^3 Eosinophils # (Auto) 0.5 H 0.0-0.3 10^3/uL Basophils # (Auto) 0.0 0.0-0.1 10^3/uL Sodium Level 140 135-145 MMOL/L Potassium Level 3.5 L 3.6-5.0 MMOL/L Chloride Level 107 98-107 MMOL/L Carbon Dioxide Level 19 L 21-32 MMOL/L Anion Gap 14 5-14 MMOL/L Blood Urea Nitrogen 8 7-18 MG/DL Creatinine 0.65 0.60-1.30 MG/DL Estimat Glomerular Filtration Rate > 60 BUN/Creatinine Ratio 12 Glucose Level 97 70-105 MG/DL Calcium Level 9.5 8.5-10.1 MG/DL Corrected Calcium 9.2 8.5-10.1 MG/DL Total Bilirubin 0.2 0.1-1.0 MG/DL Aspartate Amino Transf (AST/SGOT) 20 5-34 U/L Alanine Aminotransferase (ALT/SGPT) 17 0-55 U/L Alkaline Phosphatase 85 40-136 U/L Total Protein 7.1 6.4-8.2 GM/DL Albumin 4.4 3.2-4.5 GM/DL Lipase 10 8-78 U/L Urine Color YELLOW Urine Clarity SLIGHTLY CLOUDY Urine pH 6.5 5-9 Urine Specific [place] 1.005 L 1.016-1.022 Urine Protein NEGATIVE NEGATIVE Urine Glucose (UA) NEGATIVE NEGATIVE Urine Ketones NEGATIVE NEGATIVE Urine Nitrite NEGATIVE NEGATIVE Urine Bilirubin NEGATIVE NEGATIVE Urine Urobilinogen NORMAL NORMAL MG/DL Urine Leukocyte Esterase 2+ H NEGATIVE Urine RBC (Auto) 5+ H NEGATIVE Urine RBC 0-2 /HPF Urine WBC 5-10 H /HPF Urine Squamous Epithelial Cells 2-5 /HPF Urine Crystals NONE /LPF Urine Bacteria TRACE /HPF Urine Casts NONE /LPF Urine Mucus NEGATIVE /LPF Urine Culture Indicated YES Prothrombin Time 13.6 12.2-14.7 SEC INR Comment 1.0 0.8-1.4 Activated Partial Thromboplast Time 37 H 24-35 SEC My Orders Orders - LOKESH ALMONTE MD Famotidine Injection (Pepcid Injection) (01/22/18 00:45) Ondansetron Injection (Zofran Injectio (01/22/18 00:45) Cbc With Automated Diff (01/22/18 00:31) Comprehensive Metabolic Panel (01/22/18 00:31) Lipase (01/22/18 00:31) Ua Culture If Indicated (01/22/18 00:31) Saline Lock/Iv-Start (01/22/18 00:31) Protime With Inr (01/22/18 00:46) Partial Thromboplastin Time (01/22/18 00:46) Urine Culture (01/22/18 00:15) Cephalexin Capsule (Keflex Capsule) (01/22/18 01:45) Medications Given in ED Current Medications Medications Dose Ordered Sig/Robert Route Start Time Stop Time Status Last Admin Dose Admin Cephalexin HCl 500 mg ONCE ONCE PO 01/22/18 01:45 01/22/18 01:46 DC 01/22/18 01:50 500 MG Vital Signs/I&O 01/21/18 01/22/18 23:30 01:54 Temp 98.8 98.8 Pulse 78 60 Resp 18 18 B/P (MAP) 132/79 (96) 136/77 (96) Pulse Ox 96 99 O2 Delivery Room Air Room Air Progress Progress Note : Progress Note There was subtle suggestion of urinary tract infection. Patient was treated accordingly. Workup was otherwise unremarkable. Patient had no distress, vomiting, or bowel movement while in the ER. She and her family/friend were carrying on laughing and talking loudly. Patient was in no distress. She was ultimately discharged to outpatient follow-up. Departure Impression Primary Impression: Nausea vomiting and diarrhea Additional Impression: Urinary tract infection Qualified Codes: N39.0 - Urinary tract infection, site not specified Disposition: 01 HOME, SELF-CARE Condition: Improved Departure-Patient Inst. Decision time for Depature: 01:35 Referrals: NO,LOCAL PHYSICIAN (PCP/Family) Primary Care Physician Patient Instructions: Urinary Tract Infection, Adult (DC) Add. Discharge Instructions: Complete your antibiotic as prescribed. Follow-up with your doctor soon as possible. Return to care if symptoms worsen. Drink plenty of clear liquids. Clear liquids tonight. Gradually advance your diet with small quantities of bland food as tolerated tomorrow. All discharge instructions reviewed with patient and/or family. Voiced understanding. Scripts Cephalexin (Keflex) 500 Mg Capsule 500 MG PO TID, #15 CAP Prov: LOKESH ALMONTE MD 01/22/18 LOKESH ALMONTE MD Jan 22, 2018 01:36
[2018-01-22 01:40] LABS: PROTHROMBIN TIME PATIENT 13.6 SEC (12.2-14.7)
[2018-01-22] MEDS ORDERED: CEPHALEXIN 250 MG (KEFLEX) CAP PO ONE (01:45)
[2018-01-22 01:54] VITALS: BP 136/77
== END 2018-01-22 01:55 | disposition home or self-care (01) ==
LOC: EDUNIT# 23:08 → ER 23:11
DX: N39.0 Urinary tract infection, site not specified (principal); R19.7 Diarrhea, unspecified; F32.9 Major depressive disorder, single episode, unspecified
CPT/HCPCS: 36415; 80053; 81000; 82962; 83690; 85025; 85610; 85730; 87088; 96374; 96375

== ENCOUNTER 2018-04-07 14:46 | Outpatient (CLI) | payer SELFPAY ==
[~2018-04-07] VITALS: Ht 154.9 cm; Wt 86.4 kg
[~2018-04-07 14:46] MED LIST changes: +CEPH-507 PO
[2018-04-07] MEDS ORDERED: DULO60CA58 PO (15:01)
[2018-04-07] MEDS ORDERED: ASCO500T6 PO (15:01)
[2018-04-07] MEDS ORDERED: CRAN1CAP3 PO (15:01)
[2018-04-07] MEDS ORDERED: FERR-84 PO (15:01)
[2018-04-07] MEDS ORDERED: NITR-68 PO (15:01)
[2018-04-07 15:52] LABS: BASOPHILS # (AUTO) 0.1 10^3/uL (0.0-0.1); BASOPHILS % (AUTO) 1 % (0-10); EOSINOPHILS # (AUTO) 0.4 10^3/uL (0.0-0.3); EOSINOPHILS % (AUTO) 4 % (0-10); HEMATOCRIT 38 % (35-52); HEMOGLOBIN 12.2 G/DL (11.5-16.0); LYMPHOCYTES # (AUTO) 2.2 X 10^3 (1.0-4.0); LYMPHOCYTES % (AUTO) 21 % (12-44); MEAN CORPUSCULAR HEMOGLOBIN 25 PG (25-34); MEAN CORPUSCULAR HGB CONC 32 G/DL (32-36); MEAN CORPUSCULAR VOLUME 76 FL (80-99); MEAN PLATELET VOLUME 12.6 FL (7.4-10.4); MONOCYTES # (AUTO) 0.6 X 10^3 (0.0-1.0); MONOCYTES % (AUTO) 6 % (0-12); NEUTROPHILS # (AUTO) 7.3 X 10^3 (1.8-7.8); NEUTROPHILS % (AUTO) 70 % (42-75); PLATELET COUNT 282 10^3/uL (130-400); RED CELL DISTRIBUTION WIDTH 16.2 % (10.0-14.5); WHITE BLOOD COUNT 10.4 10^3/uL (4.3-11.0)
== END 2018-04-07 16:00 | disposition home or self-care (01) ==
LOC: PREOP 14:46
PROVIDERS: ATTEND Obstetrics & Gynecology
DX: Z01.812 Encounter for preprocedural laboratory examination (principal); Z11.2 Encounter for screening for other bacterial diseases
CPT/HCPCS: 36415; 85025; 87081

== ENCOUNTER 2018-04-10 10:10 | Day surgery (SDC) | payer MEDICARE, MEDICAID ==
[~2018-04-10] VITALS: Ht 154.9 cm; Wt 86.4 kg
--- NOTE | 2018-04-10 07:48 | Discharge Instructions ---
Discharge Instructions Discharge Medications New, Converted or Re-Newed RX: RX on Chart Patient Instructions Patient Instructions: As directed Return to The Hospital For: As directed Activity & Diet Discharge Diet: No Restrictions Activity as Tolerated: No Orders-Post D/C & Referrals Follow Up Appt: Call to make follow up appt. for patient in 2 weeks. Activity: Rest for 24 hours, than as tolerated. Diet: As tolerated-Clear Liquids only if nauseated. shower or tub bathe as desired. No driving for 24 hours, no alcoholic beverages for 24 hours, and nothing per vagina (no tampons, douching, or intercourse) for 2 weeks. Patient to return to the clinic as soon as possible for: Temperature greater than 101F, Severe Pain, Foul discharge from incision or vagina, Excessive Bleeding (more than a period). BRII LUCIANO MD Apr 10, 2018 07:48
[~2018-04-10 10:10] MED LIST changes: +ASCO500T6 PO; +CRAN1CAP3 PO; +D5 LR IV SOLUTION 1,000 ML IV SCH; +DULO60CA58 PO; +ESTROGENS CONJ IV 25 MG/5 ML (PREMARIN) VIAL IVP ONE; +FERR-84 PO; +HYDROcodone/APAP 10 MG/325 MG (LORTAB) TAB PO PRN; +KETOROLAC 30 MG/ML VIAL IVP ONE; +MEPERIDINE (DEMEROL) INJ 100 MG/ML IM ONE; +NITR-68 PO; +ONDANSETRON 4 MG/2 ML (SDV) Z0FRAN IVP PRN; +OXYC1TAB87 PO; +PROMETHAZINE INJ 25 MG/ML (PHENERGAN) AMP IM ONE; +oxyCODONE/APAP 5/325MG (PERCOCET 5) TABLET PO PRN
[2018-04-10] MEDS ORDERED: LACTATED RINGERS 1,000 ML IV PRN (10:27)
[2018-04-10] MEDS ORDERED: ceFAZolin INJECTION 1,000 MG in WATER (STERILE) FOR INJECTION 10 ML IV ONE (10:30)
[2018-04-10 10:44] VITALS: BP 127/81
[2018-04-10] MEDS ORDERED: fentaNYL INJECTION 100 MCG/2 ML AMP ONE ×2 (11:14→12:39)
[2018-04-10] MEDS ORDERED: MIDAZOLAM 2 MG/2 ML (VERSED) VIAL ONE (11:14)
[2018-04-10] MEDS ORDERED: LIDOCAINE PF 2% 5 ML (XYLOCAINE) VIAL ONE (11:15)
[2018-04-10] MEDS ORDERED: proPOfol 200 MG/20 ML (DIPRIVAN) VIAL IV ONE (11:15)
[2018-04-10] MEDS ORDERED: SEVOFLURANE (ULTANE) 15 ML INHAL SOLN ONE ×2 (11:15→12:53)
[2018-04-10] MEDS ORDERED: DEXAMETHASONE 10 MG/ML (DECADRON) 1 ML VIAL ONE (11:15)
[2018-04-10] MEDS ORDERED: ONDANSETRON 4 MG/2 ML (SDV) Z0FRAN ONE (11:15)
--- NOTE | 2018-04-10 12:19 | Progress Note-Pre Operative ---
Pre-Operative Progress Note H&P Reviewed The H&P was reviewed, patient examined and no changes noted. Date Seen by Provider: Apr 10, 2018 Time Seen by Provider: 12:19 Date H&P Reviewed: Apr 10, 2018 Time H&P Reviewed: 12:19 Pre-Operative Diagnosis: Dysfunctional uterine bleeding/intrauterine mass BRII LUCIANO MD Apr 10, 2018 12:19
--- NOTE | 2018-04-10 12:20 | Progress Note-Post Operative ---
Post-Operative Progess Note Surgeon (s)/Campus Recruiting Coordinator (s) Surgeon BRII LUCIANO MD Campus Recruiting Coordinator: None Pre-Operative Diagnosis Dysfunctional uterine bleeding/intrauterine mass Post-Operative Diagnosis Same with right buttock pigmented lesion and with pathology pending Procedure & Operative Findings Date of Procedure 04/10/18 Procedure Performed/Findings Hysteroscopy with directed biopsy and D&C and excision of right buttock pigmented lesion Anesthesia Type GETA Estimated Blood Loss Estimated blood loss (mL): Minimal Specimens/Packing Specimens Removed Intrauterine mass/directed biopsy and endometrial curettings, pigmented lesion from right buttock Packing: None BRII LUCIANO MD Apr 10, 2018 12:20
[2018-04-10] MEDS ORDERED: BUP/EPI 0.5% 1:200,000 (SENSORCAINE) 30 ML VIAL ONE (12:53)
[2018-04-10] MEDS ORDERED: KETOROLAC 30 MG/ML VIAL ONE (13:02)
[2018-04-10] MEDS ORDERED: morphine INJ 10 MG/ML 1ML (SYR OR VIAL) IVP ONE (13:15)
[2018-04-10] MEDS ORDERED: ONDANSETRON 4 MG/2 ML (SDV) Z0FRAN IVP PRN (13:15)
[2018-04-10] MEDS ORDERED: morphine INJ 10 MG/ML 1ML (SYR OR VIAL) ONE (13:31)
--- NOTE | 2018-04-10 13:53 | Anesthesia-General Post-Op ---
General Patient Condition Mental Status/LOC: Same as Preop Cardiovascular: Satisfactory Nausea/Vomiting: Absent Respiratory: Satisfactory Pain: Controlled Complications: Absent Post Op Complications Complications None Follow Up Care/Instructions Patient Instructions None needed. Anesthesia/Patient Condition Patient Condition Patient is doing well, no complaints, stable vital signs, no apparent adverse anesthesia problems. No complications reported per nursing. MICHELLE DEVINE CRNA Apr 10, 2018 13:53
[2018-04-10 14:00] VITALS: BP 129/59
[2018-04-10 14:30] VITALS: BP 125/78
[2018-04-10 15:00] VITALS: BP 129/61
[2018-04-10 15:20] VITALS: BP 129/61
--- NOTE | 2018-04-11 01:05 | OPERATIVE REPORT ---
DATE OF SERVICE: 04/10/2018 PREOPERATIVE DIAGNOSES: Dysfunctional uterine bleeding and intrauterine mass on ultrasound. POSTOPERATIVE DIAGNOSES: Dysfunctional uterine bleeding and intrauterine mass on ultrasound with hyperpigmented right buttock mole lesion. OPERATIVE PROCEDURE: Hysteroscopy with directed biopsies and D and C as well as excision of the right buttock mole lesion. OPERATIVE DESCRIPTION: With the patient in the supine position under satisfactory general anesthesia, she was prepped and draped in the usual fashion after being repositioned in dorsal lithotomy position in the [facility]. Urinary bladder had been emptied by spontaneous void prior to coming to the operating room. A weighted speculum placed in posterior fornix. Vagina, cervix grasped anteriorly with single tooth tenaculum. The uterus was sounded to 9 cm. dilated with Richard dilators and the hysteroscope was introduced using a large distending medium. The endometrial cavity was examined. There were several polypoid lesions emanating from the posterior uterine surface and from near the left tubal ostium. Express Clerk biopsies were taken from two of these and then the hysteroscope was removed. The endometrial cavity was then sharply curettage in all four quadrants to good uterine cry. That tissue was sent to pathology separately, labeled as endometrial curettings. The hysteroscope was reintroduced. The blood clot and debris was evacuated from the uterine cavity with no bleeding and no concerning pathology remaining, the procedure was complete. The hysteroscope was removed as well as the tenaculum. There was no bleeding from the tenaculum puncture sites and there was no significant bleeding from the cervical os. It was noted to have a darkly pigmented 6 mm lesion on the right inner buttock. This had been noted in clinic and had been discussed with her to remove at the first reasonable opportunity. This being the case, I went ahead and excised this sharply and closed the defect with two sutures of 3-0 nylon. That tissue was sent to pathology for permanent section as well. Sponge, needle counts were correct on completion of the procedure. Estimated blood loss for the procedure was minimal. A total of 1 liter of LR was instilled for distending medium and between 900 and 950 or so was recovered. There was some lost on the floor. The patient was now uneventful, awakened from her general anesthesia and transferred to the recovery room in stable condition with plans for discharge home PAR. She did tolerate the procedure well. Job ID: [id number] DocumentID: [id number] Dictated Date: 04/10/2018 12:58:44 Center Rep Date: 04/10/2018 23:38:42 Dictated By: MAYA FUNG MD
== END 2018-04-10 15:20 | disposition home or self-care (01) ==
LOC: SDC 10:10
PROVIDERS: ATTEND Obstetrics & Gynecology
DX: N93.8 Other specified abnormal uterine and vaginal bleeding (principal); N84.0 Polyp of corpus uteri; D22.5 Melanocytic nevi of trunk; F17.210 Nicotine dependence, cigarettes, uncomplicated
CPT/HCPCS: 84703

== ENCOUNTER 2018-08-16 18:00 | Emergency (ER) | payer MEDICARE, MEDICAID ==
[~2018-08-16] VITALS: Ht 154.9 cm; Wt 85.0 kg
[~2018-08-16 18:00] MED LIST changes: -D5 LR IV SOLUTION 1,000 ML IV SCH; -ESTROGENS CONJ IV 25 MG/5 ML (PREMARIN) VIAL IVP ONE; -HYDROcodone/APAP 10 MG/325 MG (LORTAB) TAB PO PRN; -KETOROLAC 30 MG/ML VIAL IVP ONE; -MEPERIDINE (DEMEROL) INJ 100 MG/ML IM ONE; -ONDANSETRON 4 MG/2 ML (SDV) Z0FRAN IVP PRN; -PROMETHAZINE INJ 25 MG/ML (PHENERGAN) AMP IM ONE; -oxyCODONE/APAP 5/325MG (PERCOCET 5) TABLET PO PRN
--- OUTSIDE RECORDS SUMMARY | 2018-08-16 18:06 | XMS REPORT ---
Author Author MAYA MURRIETA Organization [facility] Address [address] [place] [address] Care Team Providers Care Service Employee Name Role Phone MAYA MURRIETA Unavailable PROBLEMS Type Condition ICD9-CM Code CBU65-QR Code Onset Dates Condition Status SNOMED Code Problem Menstrual irregularity N92.6 Active 88957517 Problem Mentally challenged F79 Active 229577924 Problem Dysthymia F34.1 Active 32536832 Problem Dysfunctional uterine bleeding N93.8 Active 13377538 ALLERGIES No Information ENCOUNTERS Encounter Location Date Diagnosis [place] [id number] [address] Jan, [facility] [address] [address] Nov, Rash R21 ; Menstrual irregularity N92.6 and Dysthymia F34.1 [facility] [address] [address] Oct, Acute nasopharyngitis J00 [facility] [address] [address] Aug, Dysthymia F34.1 and Mentally challenged F79 [facility] [address] [address] Jul, Dysthymia F34.1 and Dysfunctional uterine bleeding N93.8 [facility] [address] [address] June, Fever blister B00.1 [facility] [address] [address] Aug, Lower abdominal pain R10.30 and Acute cystitis without hematuria N30.00 [facility] [address] [address] 10 May, 2016 Urinary tract infection without hematuria, site unspecified N39.0 [place] [address] [place] [address] 07 May, 2016 Vomiting R11.10 ; Dysuria R30.0 and Acute cystitis without hematuria N30.00 [address] [place] [address] 17 Sep, 2015 Encounter for immunization Z23 [address] [id number] [id number] May, Dental examination Z01.20 [facility] [address] [place] [id number] [place] [address] 15 May, 2015 Encounter for observation for other suspected diseases and conditions ruled out Z03.[address] [place] [address] 14 Apr, 2015 Sports physical Z02.5 ; Dietary counseling Z71.3 ; Exercise counseling Z71.89 ; Encounter for well child visit with abnormal findings Z00.121 ; Allergic rhinitis, unspecified J30.9 ; Postnasal drip R09.82 ; Obesity, unspecified obesity severity, unspecified obesity type E66.9 ; Acanthosis nigricans L83 and Encounter for immunization Z23 [place] [address] [address] [place] [address] Nov, IMMUNIZATIONS No Known Immunizations SOCIAL HISTORY Never Assessed REASON FOR VISIT Refill request PLAN OF CARE VITAL SIGNS MEDICATIONS Unknown Medications RESULTS No Results PROCEDURES No Known procedures INSTRUCTIONS MEDICATIONS ADMINISTERED No Known Medications MEDICAL (GENERAL) HISTORY Type Description Date Medical History depression Surgical History Tonsillectomy 02/2002
--- OUTSIDE RECORDS SUMMARY | 2018-08-16 18:07 | XMS REPORT | Continuity of Care Document ---
Author Organization Unknown Address Unknown Allergies Active Description Code Type Severity Reaction Onset Reported/Identified Relationship to Patient Clinical Status Yes No Known Drug Allergies [id number] Drug Allergy Unknown N/A 04/07/2018 Medications There is no data. Problems Date Dx Coded Attending Type Code Diagnosis Diagnosed By 06/18/2014 FLOYD ALLEN Ot 599.70 HEMATURIA, UNSPECIFIED 06/18/2014 FLOYD ALLEN Ot 788.0 RENAL COLIC 01/22/2018 LOKESH ALMONTE MD Ot F32.9 MAJOR DEPRESSIVE DISORDER, SINGLE EPISOD 01/22/2018 LOKESH ALMONTE MD Ot N39.0 URINARY TRACT INFECTION, SITE NOT SPECIF 01/22/2018 LOKESH ALMONTE MD T Ot R11.2 NAUSEA WITH VOMITING, UNSPECIFIED 01/22/2018 LOKESH ALMONTE MD Ot R19.7 DIARRHEA, UNSPECIFIED 01/23/2018 LOKESH ALMONTE MD Ot F32.9 MAJOR DEPRESSIVE DISORDER, SINGLE EPISOD 01/23/2018 LOKESH ALMONTE MD T Ot N39.0 URINARY TRACT INFECTION, SITE NOT SPECIF 01/23/2018 LOKESH ALMONTE MD T Ot R11.2 NAUSEA WITH VOMITING, UNSPECIFIED 01/23/2018 LOKESH ALMONTE MD T Ot R19.7 DIARRHEA, UNSPECIFIED 04/07/2018 BRII LUCIANO MD Ot Z01.812 ENCOUNTER FOR PREPROCEDURAL LABORATORY E 04/07/2018 BRII LUCIANO MD Ot Z11.2 ENCOUNTER FOR SCREENING FOR OTHER BACTER 04/08/2018 BRII LUCIANO MD Ot Z01.812 ENCOUNTER FOR PREPROCEDURAL LABORATORY E 04/08/2018 BRII LUCIANO MD Ot Z11.2 ENCOUNTER FOR SCREENING FOR OTHER BACTER 04/10/2018 BRII LUCIANO MD, Ot 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 04/10/2018 BRII LUCIANO MD, Ot F17.210 NICOTINE DEPENDENCE, CIGARETTES, UNCOMPL 04/10/2018 BRII LUCIANO MD Ot N84.0 POLYP OF CORPUS UTERI 04/10/2018 BRII LUCIANO MD Ot N93.8 OTHER SPECIFIED ABNORMAL UTERINE AND VAG 04/11/2018 BRII LUCIANO MD, Ot Z01.812 ENCOUNTER FOR PREPROCEDURAL LABORATORY E 04/11/2018 BRII LUCIANO MD, Ot Z11.2 ENCOUNTER FOR SCREENING FOR OTHER BACTER 04/14/2018 BRII LUCIANO MD, Ot 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 Results Test Result Range Capillary blood glucose measurement by glucometer (mass/volume) - 01/21/18 23:34 Capillary blood glucose measurement by glucometer (mass/volume) 117 mg/dL 70-110 Complete blood count (CBC) with automated white blood cell (WBC) differential - 01/21/18 23:50 Blood leukocytes automated count (number/volume) 11.9 10*3/uL 4.3-11.0 Blood erythrocytes automated count (number/volume) 4.80 10*6/uL 4.35-5.85 Venous blood hemoglobin measurement (mass/volume) 11.6 g/dL 11.5-16.0 Blood hematocrit (volume fraction) 36 % 35-52 Automated erythrocyte mean corpuscular volume 75 [foz_us] 80-99 Automated erythrocyte mean corpuscular hemoglobin (mass per erythrocyte) 24 pg 25-34 Automated erythrocyte mean corpuscular hemoglobin concentration measurement (mass/volume) 32 g/dL 32-36 Automated erythrocyte distribution width ratio 15.6 % 10.0- 14.5 Automated blood platelet count (count/volume) 302 10*3/uL 130-400 Automated blood platelet mean volume measurement 13.0 [foz_us] 7.4-10.4 Automated blood neutrophils/100 leukocytes 59 % 42-75 Automated blood lymphocytes/100 leukocytes 32 % 12-44 Blood monocytes/100 leukocytes 5 % 0-12 Automated blood eosinophils/100 leukocytes 4 % 0-10 Automated blood basophils/100 leukocytes 0 % 0-10 Blood neutrophils automated count (number/volume) 7.0 10*3 1.8-7.8 Blood lymphocytes automated count (number/volume) 3.8 10*3 1.0-4.0 Blood monocytes automated count (number/volume) 0.6 10*3 0.0- 1.0 Automated eosinophil count 0.5 10*3/uL 0.0-0.3 Automated blood basophil count (count/volume) 0.0 10*3/uL 0.0-0.1 Comprehensive metabolic panel - 01/21/18 23:50 Serum or plasma sodium measurement (moles/volume) 140 mmol/L 135-145 Serum or plasma potassium measurement (moles/volume) 3.5 mmol/L 3.6-5.0 Serum or plasma chloride measurement (moles/volume) 107 mmol/L 98-107 Carbon dioxide 19 mmol/L 21-32 Serum or plasma anion gap determination (moles/volume) 14 mmol/L 5-14 Serum or plasma urea nitrogen measurement (mass/volume) 8 mg/dL 7-18 Serum or plasma creatinine measurement (mass/volume) 0.65 mg/dL 0.60-1.30 Serum or plasma urea nitrogen/creatinine mass ratio 12 NRG Serum or plasma creatinine measurement with calculation of estimated glomerular filtration rate > NRG Serum or plasma glucose measurement (mass/volume) 97 mg/dL 70-105 Serum or plasma calcium measurement (mass/volume) 9.5 mg/dL 8.5-10.1 Serum or plasma total bilirubin measurement (mass/volume) 0.2 mg/dL 0.1-1.0 Serum or plasma alkaline phosphatase measurement (enzymatic activity/volume) 85 U/L 40-136 Serum or plasma aspartate aminotransferase measurement (enzymatic activity/volume) 20 U/L 5-34 Serum or plasma alanine aminotransferase measurement (enzymatic activity/volume) 17 U/L 0-55 Serum or plasma protein measurement (mass/volume) 7.1 g/dL 6.4-8.2 Serum or plasma albumin measurement (mass/volume) 4.4 g/dL 3.2-4.5 CALCIUM CORRECTED 9.2 mg/dL 8.5-10.1 Lipase - 01/21/18 23:50 Lipase 10 U/L 8-78 Complete urinalysis with reflex to culture - 01/22/18 00:15 Urine color determination YELLOW NRG Urine clarity determination SLIGHTLY CLOUDY NRG Urine pH measurement by test strip 6.5 5-9 Specific gravity of urine by test strip 1.005 1.016-1.022 Urine protein assay by test strip, semi-quantitative NEGATIVE NEGATIVE Urine glucose detection by automated test strip NEGATIVE NEGATIVE Erythrocytes detection in urine sediment by light microscopy 5+ NEGATIVE Urine ketones detection by automated test strip NEGATIVE NEGATIVE Urine nitrite detection by test strip NEGATIVE NEGATIVE Urine total bilirubin detection by test strip NEGATIVE NEGATIVE Urine urobilinogen measurement by automated test strip (mass/volume) NORMAL NORMAL Urine leukocyte esterase detection by dipstick 2+ NEGATIVE Automated urine sediment erythrocyte count by microscopy (number/high power field) [HPF] NRG Automated urine sediment leukocyte count by microscopy (number/high power field) [HPF] NRG Bacteria detection in urine sediment by light microscopy TRACE NRG Squamous epithelial cells detection in urine sediment by light microscopy 2-5 NRG Crystals detection in urine sediment by light microscopy NONE NRG Casts detection in urine sediment by light microscopy NONE NRG Mucus detection in urine sediment by light microscopy NEGATIVE NRG Complete urinalysis with reflex to culture YES NRG Bacterial urine culture - 01/22/18 00:15 Bacterial urine culture SEE REPORT NRG COLONY COUNT . NRG PT panel in platelet poor plasma by coagulation assay - 01/22/18 01:23 Prothrombin time (PT) in platelet poor plasma by coagulation assay 13.6 s 12.2-14.7 INR in platelet poor plasma or blood by coagulation assay 1.0 0.8-1.4 Activated partial thromboplastin time (aPTT) in platelet poor plasma bycoagulation assay - 01/22/18 01:23 Activated partial thromboplastin time (aPTT) in platelet poor plasma bycoagulation assay 37 s 24-35 Complete blood count (CBC) with automated white blood cell (WBC) differential - 04/07/18 15:35 Blood leukocytes automated count (number/volume) 10.4 10*3/uL 4.3-11.0 Blood erythrocytes automated count (number/volume) 4.96 10*6/uL 4.35-5.85 Venous blood hemoglobin measurement (mass/volume) 12.2 g/dL 11.5-16.0 Blood hematocrit (volume fraction) 38 % 35-52 Automated erythrocyte mean corpuscular volume 76 [foz_us] 80-99 Automated erythrocyte mean corpuscular hemoglobin (mass per erythrocyte) 25 pg 25-34 Automated erythrocyte mean corpuscular hemoglobin concentration measurement (mass/volume) 32 g/dL 32-36 Automated erythrocyte distribution width ratio 16.2 % 10.0- 14.5 Automated blood platelet count (count/volume) 282 10*3/uL 130-400 Automated blood platelet mean volume measurement 12.6 [foz_us] 7.4-10.4 Automated blood neutrophils/100 leukocytes 70 % 42-75 Automated blood lymphocytes/100 leukocytes 21 % 12-44 Blood monocytes/100 leukocytes 6 % 0-12 Automated blood eosinophils/100 leukocytes 4 % 0-10 Automated blood basophils/100 leukocytes 1 % 0-10 Blood neutrophils automated count (number/volume) 7.3 10*3 1.8-7.8 Blood lymphocytes automated count (number/volume) 2.2 10*3 1.0-4.0 Blood monocytes automated count (number/volume) 0.6 10*3 0.0- 1.0 Automated eosinophil count 0.4 10*3/uL 0.0-0.3 Automated blood basophil count (count/volume) 0.1 10*3/uL 0.0-0.1 Methicillin resistant Staphylococcus aureus (MRSA) screening culture - 04/07/18 15:35 Methicillin resistant Staphylococcus aureus (MRSA) screening culture NEG NRG Urine beta human chorionic gonadotropin (hCG) measurement - 04/10/18 10:20 Urine beta human chorionic gonadotropin (hCG) measurement NEGATIVE NEGATIVE HSV 1/2 IGG,TYPE SPECIFIC AB HERPESELECT - 05/04/18 16:27 HSV 1 IGG, TYPE SPECIFIC AB 30.80 index NRG HSV 2 IGG, TYPE SPECIFIC AB <0.90 index NRG Encounters ACCT No. Visit Date/Time Discharge Status Pt. Type Provider Facility Loc./Unit Complaint [id number] 08/03/2018 08:45:00 08/03/2018 23:59:59 CLS Outpatient [facility]ENNY CACERES[facility] [id number] 05/04/2018 15:50:00 Document Registration [id number] 04/10/2018 10:10:00 04/10/2018 15:20:00 DIS Outpatient BRII LUCIANO MD [facility] SDC PELVIC [place]ASS [id number] 04/07/2018 14:46:00 04/07/2018 16:00:00 DIS Outpatient BRII LUCIANO MD [facility] PREOP D C, HYSTEROSCOPY [id number] 01/21/2018 23:11:00 01/22/2018 01:55:00 DIS Emergency LOKESH ALMONTE MD [facility] ER VOMITING,DIARRHEA [id number] 06/18/2014 20:00:00 06/18/2014 23:34:00 DIS Emergency FLOYD ALLEN Via [facility] ER BLOOD IN URINE
[2018-08-16] MEDS ORDERED: NS IV 1000 ML 1,000 ML IV ONE (18:14)
[2018-08-16] MEDS ORDERED: ONDANSETRON 4 MG/2 ML (SDV) Z0FRAN IVP ONE (18:15)
--- NOTE | 2018-08-16 18:33 | NUR ---
pt here with " boyfriend". pt alert gcs 15. pt holding and c/o rlq abd pain started yesterday. associated with n/v x 2 today and diarrhea " i cant count". mm slightly dry and no skin tenting noted. pain rating 10 before i said 0-10. pt denies fever at home. denies dyspnea and no acute sighns of dyspnea noted. denies ua and vaginal c/os. lungs cta bilaterally. abd tender to palpation rlq abd only. pt instructed npo. done iker pt 183.
--- NOTE | 2018-08-16 18:45 | ED GU-Female ---
General Chief Complaint: Abdominal/GI Problems Stated Complaint: LOWER RT ABD PAIN Nursing Triage Note: Pt CO abdominal pain starting yesterday. Worsening this morning. N/V/D. Nursing Sepsis Screen: No Definite Risk Source: patient Exam Limitations: no limitations History of Present Illness Date Seen by Provider: Aug 16, 2018 Time Seen by Provider: 18:44 Allergies and Home Medications Allergies Coded Allergies: No Known Drug Allergies (Unverified , 04/07/18) Home Medications Ascorbic Acid 500 Mg Tablet, 500 MG PO DAILY, (Reported) Cranberry Conc/Ascorbic Acid 1 Each Capsule, 1 EACH PO DAILY, (Reported) Duloxetine HCl 60 Mg Capsule.dr, 60 MG PO DAILY, (Reported) Ferrous Sulfate 325 Mg Tablet, 325 MG PO DAILY, (Reported) Hydrocodone Bit/Acetaminophen 1 Tab Tab, 1 EACH PO Q6H PRN for PAIN-MODERATE Prescribed by: FLOYD MEMBRENO on 08/16/182027 Nitrofurantoin Macrocrystal 100 Mg Capsule, 100 MG PO DAILY, (Reported) Nitrofurantoin Monohyd/M-Cryst 100 Mg Capsule, 1 TAB PO BID Prescribed by: FLOYD MEMBRENO on 08/16/182027 Ondansetron 4 Mg Tab.rapdis, 4 MG PO Q6H PRN for NAUSEA/VOMITING Prescribed by: FLOYD MEMBRENO on 08/16/182027 Oxycodone HCl/Acetaminophen 1 Each Tablet, 1 TAB PO Q4H Prescribed by: BRII BARR on 04/10/18 0746 Phenazopyridine HCl 200 Mg Tablet, 1 TAB PO Q8H PRN for pain Prescribed by: FLOYD MEMBRENO on 08/16/182027 Past Xduuywz-Zgjqcn-Pykyta Hx Patient Social History Alcohol Use: Denies Use Recreational Drug Use: No Smoking Status: Current Someday Smoker Type Used: Cigarettes 2nd Hand Smoke Exposure: Yes Recent Foreign Travel: No Contact w/Someone Who Travel: No Recent Infectious Disease Expo: No Recent Hopitalizations: No Immunizations Up To Date PED Vaccines UTD: Yes Seasonal Allergies Seasonal Allergies: Yes Past Medical History Surgeries: Yes Tonsillectomy Respiratory: No Cardiac: No Hypertension Neurological: No : No Hx Total # of Abortions (Sp): 1 Reproductive Disorders: No Female Reproductive Disorders: Menstrual Problems Sexually Transmitted Disease: No HIV/AIDS: No Genitourinary: Yes UTI-Chronic Gastrointestinal: No Musculoskeletal: No Chronic Back Pain Endocrine: No HEENT: No Loss of Vision: Denies Hearing Impairment: Denies Cancer: No Psychosocial: Yes Suicide Attempts Integumentary: No Blood Disorders: No Adverse Reaction/Blood Tranf: No Family Medical History No Pertinent Family Hx Physical Exam Vital Signs Vital Signs - First Documented 08/16/18 18:05 Temp 98.3 Pulse 78 Resp 14 B/P (MAP) 132/87 (102) Pulse Ox 98 Capillary Refill : Less Than 3 Seconds Height, Weight, BMI Height: 5'1.00" Weight: 187lbs. 6.0oz. 84.621438iy; 36.0 BMI Method:Stated Progress/Results/Core Measures Suspected Sepsis Recent Fever Within 48 Hours: No Infection Criteria Present: None New/Unexplained Altered Menta: No Sepsis Screen: No Definite Risk SIRS Temperature:98.3 Pulse: 78 Respiratory Rate: 14 Laboratory Tests 08/16/18 18:45: White Blood Count 16.3H Blood Pressure 132 /87 Mean: 102 Laboratory Tests 08/16/18 18:45: Creatinine 0.63, Platelet Count 294, Total Bilirubin 0.3 Results/Orders Lab Results Laboratory Tests Test 08/16/18 18:45 08/16/18 19:18 Range/Units White Blood Count 16.3 H 4.3-11.0 10^3/uL Red Blood Count 4.99 4.35-5.85 10^6/uL Hemoglobin 12.7 11.5-16.0 G/DL Hematocrit 39 35-52 % Mean Corpuscular Volume 77 L 80-99 FL Mean Corpuscular Hemoglobin 26 25-34 PG Mean Corpuscular Hemoglobin Concent 33 32-36 G/DL Red Cell Distribution Width 14.2 10.0-14.5 % Platelet Count 294 130-400 10^3/uL Mean Platelet Volume 11.9 H 7.4-10.4 FL Neutrophils (%) (Auto) 76 H 42-75 % Lymphocytes (%) (Auto) 17 12-44 % Monocytes (%) (Auto) 5 0-12 % Eosinophils (%) (Auto) 2 0-10 % Basophils (%) (Auto) 0 0-10 % Neutrophils # (Auto) 12.5 H 1.8-7.8 X 10^3 Lymphocytes # (Auto) 2.8 1.0-4.0 X 10^3 Monocytes # (Auto) 0.8 0.0-1.0 X 10^3 Eosinophils # (Auto) 0.3 0.0-0.3 10^3/uL Basophils # (Auto) 0.1 0.0-0.1 10^3/uL Neutrophils % (Manual) 78 % Lymphocytes % (Manual) 15 % Monocytes % (Manual) 3 % Eosinophils % (Manual) 2 % Reactive Lymphocytes 2 % Blood Morphology Comment NORMAL Sodium Level 139 135-145 MMOL/L Potassium Level 3.9 3.6-5.0 MMOL/L Chloride Level 103 98-107 MMOL/L Carbon Dioxide Level 23 21-32 MMOL/L Anion Gap 13 5-14 MMOL/L Blood Urea Nitrogen 9 7-18 MG/DL Creatinine 0.63 0.60-1.30 MG/DL Estimat Glomerular Filtration Rate > 60 BUN/Creatinine Ratio 14 Glucose Level 106 H 70-105 MG/DL Calcium Level 9.7 8.5-10.1 MG/DL Corrected Calcium 9.5 8.5-10.1 MG/DL Total Bilirubin 0.3 0.1-1.0 MG/DL Aspartate Amino Transf (AST/SGOT) 13 5-34 U/L Alanine Aminotransferase (ALT/SGPT) 19 0-55 U/L Alkaline Phosphatase 99 40-136 U/L Total Protein 6.9 6.4-8.2 GM/DL Albumin 4.2 3.2-4.5 GM/DL Lipase 7 L 8-78 U/L Urine Color YELLOW Urine Clarity VERY CLOUDY H Urine pH 6.5 5-9 Urine Specific [place] 1.015 L 1.016-1.022 Urine Protein 2+ H NEGATIVE Urine Glucose (UA) NEGATIVE NEGATIVE Urine Ketones NEGATIVE NEGATIVE Urine Nitrite POSITIVE H NEGATIVE Urine Bilirubin NEGATIVE NEGATIVE Urine Urobilinogen NORMAL NORMAL MG/DL Urine Leukocyte Esterase 3+ H NEGATIVE Urine RBC (Auto) 5+ H NEGATIVE Urine RBC 25-50 H /HPF Urine WBC 25-50 H /HPF Urine Squamous Epithelial Cells 5-10 /HPF Urine Crystals NONE /LPF Urine Bacteria MODERATE H /HPF Urine Casts NONE /LPF Urine Mucus NEGATIVE /LPF Urine Culture Indicated YES My Orders Orders - FLOYD MEMBRENO Cbc With Automated Diff (08/16/18 18:14) Comprehensive Metabolic Panel (08/16/18 18:14) Lipase (08/16/18 18:14) Ua Culture If Indicated (08/16/18 18:14) Ed Iv/Invasive Line Start (08/16/18 18:14) Urine Bedside (08/16/18 18:14) Ns Iv 1000 Ml (Sodium Chloride 0.9%) (08/16/18 18:14) Ondansetron Injection (Zofran Injectio (08/16/18 18:15) Manual Differential (08/16/18 18:45) Ketorolac Injection (Toradol Injection) (08/16/18 18:58) Urine Culture (08/16/18 19:18) Ct Abd/Pelvis Wo(Kidney Stone) (08/16/18 19:48) Medications Given in ED Current Medications Medications Dose Ordered Sig/Robert Route Start Time Stop Time Status Last Admin Dose Admin Ondansetron HCl 4 mg ONCE ONCE IVP 08/16/18 18:15 08/16/18 18:16 DC 08/16/18 18:48 4 MG Sodium Chloride 1,000 ml @ 0 mls/hr Q0M ONCE IV 08/16/18 18:14 08/16/18 18:16 DC 08/16/18 18:46 1,000 MLS/HR Vital Signs/I&O 08/16/18 18:05 Temp 98.3 Pulse 78 Resp 14 B/P (MAP) 132/87 (102) Pulse Ox 98 Capillary Refill : Less Than 3 Seconds Blood Pressure Mean: 102 Diagnostic Imaging Diagonstic Imaging: CT Plain Films/CT/US/NM/MRI: abdomen, pelvis Comments Date of Exam:08/16/18 CT ABD/PELVIS WO(KIDNEY STONE) INDICATION: Abdominal pain, started yesterday, worsening this morning. COMPARISON STUDY: CT scan from 06/18/14. FINDINGS: The liver, gallbladder, spleen, pancreas and adrenal glands appear normal. The previous 2 mm calculi is seen in the lower pole of the right kidney is not identified. No hydronephrosis or dilatation of the ureters is identified. There is a 2 mm calcification near the expected region of the right ureter in the pelvis on axial image #89. No calculi are present in the bladder. There has been development of a 1-2 mm calculi in the mid pole of the left kidney. There is no ascites, free air or abnormal adenopathy. The appendix is ra ther short. No inflammation is seen. The uterus and adnexal structures are normal. IMPRESSION: 1. There was previously a 2 mm calculi in the lower pole of the right kidney. This is no longer seen in the kidney but there is a 2 mm calculi along the course of the right ureter. No hydronephrosis is present. 2. There is a 2 mm calculi in the midpole of the left kidney which was not present previously. There is no inflammation. Dictated on workstation # [id number] Reviewed: Reviewed by Me (radiology report reviewed) Departure Impression Primary Impression: Kidney stone Disposition: HOME, SELF-CARE Condition: Improved Departure-Patient Inst. Decision time for Depature: 20:25 Referrals: [facility] (PCP/Family) Primary Care Physician Patient Instructions: Kidney Stones (DC), How to Strain Your Urine Add. Discharge Instructions: All discharge instructions reviewed with patient and/or family. Voiced understanding. Medications as instructed. Ibuprofen 800 mg by mouth every 8 hours as needed for pain. Drink plenty of fluids. Strain all urines. Follow- up with your primary care provider as an outpatient in the next 2-3 days for recheck and repeat x-ray. Call tomorrow morning for an appointment time. Return to the emergency department for worsened symptoms, inability to urinate, abdominal swelling, increased pain, fever, or any other concerns. Scripts Hydrocodone Bit/Acetaminophen (Hydrocodone/Acetaminophen 5/325mg Tablet) 1 Tab Tab 1 EACH PO Q6H PRN for PAIN-MODERATE MDD 10 for 3 Days, #10 TAB 0 Refills Prov: FLOYD MEMBRENO 08/16/18 Phenazopyridine HCl (Pyridium) 200 Mg Tablet 1 TAB PO Q8H PRN for pain, #14 TAB 0 Refills Prov: FLOYD MEMBRENO 08/16/18 Ondansetron (Ondansetron Odt) 4 Mg Tab.rapdis 4 MG PO Q6H PRN for NAUSEA/VOMITING, #10 TAB 0 Refills Prov: FLOYD MEMBRENO 08/16/18 Nitrofurantoin Monohyd/M-Cryst (Macrobid 100 mg Capsule) 100 Mg Capsule 1 TAB PO BID, #14 CAP 0 Refills Prov: FLOYD MEMBRENO 08/16/18 Work/School Note: Work Release Form Date Seen in the Emergency Department: Aug 16, 2018 Return to Work: Aug 18, 2018 FLOYD MEMBRENO Aug 16, 2018 18:45
--- NOTE | 2018-08-16 18:45 | NUR ---
pt cant ua yet
--- NOTE | 2018-08-16 18:49 | NUR ---
labs to lab by me
[2018-08-16 18:52] LABS: BASOPHILS # (AUTO) 0.1 10^3/uL (0.0-0.1); BASOPHILS % (AUTO) 0 % (0-10); EOSINOPHILS # (AUTO) 0.3 10^3/uL (0.0-0.3); EOSINOPHILS % (AUTO) 2 % (0-10); HEMATOCRIT 39 % (35-52); HEMOGLOBIN 12.7 G/DL (11.5-16.0); LYMPHOCYTES # (AUTO) 2.8 X 10^3 (1.0-4.0); LYMPHOCYTES % (AUTO) 17 % (12-44); MEAN CORPUSCULAR HEMOGLOBIN 26 PG (25-34); MEAN CORPUSCULAR HGB CONC 33 G/DL (32-36); MEAN CORPUSCULAR VOLUME 77 FL (80-99); MEAN PLATELET VOLUME 11.9 FL (7.4-10.4); MONOCYTES # (AUTO) 0.8 X 10^3 (0.0-1.0); MONOCYTES % (AUTO) 5 % (0-12); NEUTROPHILS # (AUTO) 12.5 X 10^3 (1.8-7.8); NEUTROPHILS % (AUTO) 76 % (42-75); PLATELET COUNT 294 10^3/uL (130-400); RED CELL DISTRIBUTION WIDTH 14.2 % (10.0-14.5); WHITE BLOOD COUNT 16.3 10^3/uL (4.3-11.0)
[2018-08-16] MEDS ORDERED: KETOROLAC 30 MG/ML VIAL IVP STA (18:58)
--- NOTE | 2018-08-16 19:05 | NUR ---
i asked tech to do ua and ua hcg
[2018-08-16 19:10] LABS: ALANINE AMINOTRANSFERASE 19 U/L (0-55); ALBUMIN 4.2 GM/DL (3.2-4.5); ALKALINE PHOSPHATASE 99 U/L (40-136); BILIRUBIN,TOTAL 0.3 MG/DL (0.1-1.0); BUN/CREATININE RATIO 14; CALCIUM 9.7 MG/DL (8.5-10.1); CARBON DIOXIDE 23 MMOL/L (21-32); CHLORIDE 103 MMOL/L (98-107); CREATININE SERUM 0.63 MG/DL (0.60-1.30); GFR ESTIMATED > 60; GLUCOSE 106 MG/DL (70-105); LIPASE 7 U/L (8-78); POTASSIUM 3.9 MMOL/L (3.6-5.0); SODIUM 139 MMOL/L (135-145); TOTAL PROTEIN 6.9 GM/DL (6.4-8.2)
[2018-08-16 19:22] LABS: EOSINOPHILS % (MANUAL) 2 %; LYMPHOCYTES % (MANUAL) 15 %; MONOCYTES % (MANUAL) 3 %; NEUTROPHILS % (MANUAL) 78 %; RBC MORPH NORMAL; REACTIVE LYMPHOCYTES 2 %
[2018-08-16 19:23] LABS: BILIRUBIN,URINE NEGATIVE (NEGATIVE); CLARITY,URINE VERY CLOUDY; COLOR,URINE YELLOW; GLUCOSE, URINE (UA) NEGATIVE (NEGATIVE); KETONES,URINE NEGATIVE (NEGATIVE); LEUKOCYTE ESTERASE ,URINE 3+ (NEGATIVE); NITRITE,URINE POSITIVE (NEGATIVE); PH,URINE 6.5 (5-9); PROTEIN,URINE 2+ (NEGATIVE); UROBILINOGEN,URINE NORMAL (NORMAL)
[2018-08-16 19:30] LABS: BACTERIA,URINE MODERATE /HPF; RBC,URINE 25-50 /HPF; WBC,URINE 25-50 /HPF
--- NOTE | 2018-08-16 20:14 | Diagnostic Imaging Report ---
INDICATION: Abdominal pain, started yesterday, worsening this morning. COMPARISON STUDY: CT scan from 06/18/14. FINDINGS: The liver, gallbladder, spleen, pancreas and adrenal glands appear normal. The previous 2 mm calculi is seen in the lower pole of the right kidney is not identified. No hydronephrosis or dilatation of the ureters is identified. There is a 2 mm calcification near the expected region of the right ureter in the pelvis on axial image #89. No calculi are present in the bladder. There has been development of a 1-2 mm calculi in the mid pole of the left kidney. There is no ascites, free air or abnormal adenopathy. The appendix is rather short. No inflammation is seen. The uterus and adnexal structures are normal. IMPRESSION: 1. There was previously a 2 mm calculi in the lower pole of the right kidney. This is no longer seen in the kidney but there is a 2 mm calculi along the course of the right ureter. No hydronephrosis is present. 2. There is a 2 mm calculi in the midpole of the left kidney which was not present previously. There is no inflammation. Dictated by: Dictated on workstation # [id number]
[2018-08-16] MEDS ORDERED: NITR-65 PO (20:28)
[2018-08-16] MEDS ORDERED: ONDA4TAB11 PO (20:28)
[2018-08-16] MEDS ORDERED: ACHD5005 PO (20:28)
[2018-08-16] MEDS ORDERED: PHEN-640 PO (20:28)
[2018-08-16] MEDS ORDERED: cefTRIAXone FOR IV USE 1,000 MG in WATER (STERILE) FOR INJECTION 10 ML IV ONE (20:30)
[2018-08-16] MEDS ORDERED: RX-HYDROCODONE/APAP 5/325 MG #4 TAB PK PO PRN (20:30)
[2018-08-16] MEDS ORDERED: PHENAZOPYRIDINE 100 MG (PYRIDIUM) TABLET PO ONE (20:30)
[2018-08-16] MEDS ORDERED: RX-ONDANSETRON 4 MG ODT (ZOFRAN) PPK #4 PO STA (20:30)
--- NOTE | 2018-08-16 20:49 | NUR ---
pt remains alert gcs 15. boyfriend remains in the room. abd pain rating 2. denies nausea and no v/d noted in er visit thus far. bolus completed. bp machine is 118/72 ausc hr 60 reg ausc resp 16 normal recheck temp 97.9 p ox r/a is 96.
[2018-08-16 21:19] VITALS: BP 118/72
--- NOTE | 2018-08-16 21:19 | NUR ---
d/c instyructions to pt. told to read all papers. scripts paper and fax. pt left ambulatory with boyfriend. pt knowes f/u. i went over the handtyped by information opn the chart. tech d/cd iv prior to d/c and did bp 133/77 hr 75 p ox 99. take home vicodin given, taken home zofran given. specipan strainer and container gathered by dr pelayo. work release given.
== END 2018-08-16 21:24 | disposition home or self-care (01) ==
LOC: EDUNIT# 18:00 → ER 18:02
DX: N20.0 Calculus of kidney (principal); I10 Essential (primary) hypertension; F17.210 Nicotine dependence, cigarettes, uncomplicated; Z90.89 Acquired absence of other organs; Z87.442 Personal history of urinary calculi
CPT/HCPCS: 36415; 74176; 80053; 81000; 83690; 84703; 85007; 85025; 85027; 87077; 87088; 87186; 96374; 96375

== ENCOUNTER → 2018-10-23 | Outpatient (CLI) | payer MEDICARE, MEDICAID ==
[~2018-10-23] MED LIST changes: +ACHD5005 PO; -DULO60CA58 PO; +DULO60CA59 PO; +NITR-65 PO; +ONDA4TAB11 PO; +PHEN-640 PO
--- NOTE | 2018-10-23 15:01 | Diagnostic Imaging Report ---
PROCEDURE: US Gallbladder. TECHNIQUE: Multiple real-time grayscale images were obtained over the right upper quadrant in various projections. INDICATION: Nausea and vomiting. FINDINGS: The liver is normal in size at 14.7 cm. No discrete liver mass is detected. The portal vein is patent and shows normal direction of flow. Gallbladder is without stones or sludge. No wall thickening or biliary ductal dilatation is seen. Pancreas is unremarkable. Right kidney is without calculi or hydronephrosis. There is no ascites. IMPRESSION: Unremarkable gallbladder ultrasound. Dictated by: Dictated on workstation # [id number]
== END ==
LOC: RAD 07:50
PROVIDERS: ATTEND Internal Medicine
DX: R11.2 Nausea with vomiting, unspecified (principal)
CPT/HCPCS: 76705

== ENCOUNTER 2018-11-22 00:06 | Emergency (ER) | payer MEDICARE, MEDICAID ==
[~2018-11-22] VITALS: Ht 154 cm; Wt 89.1 kg
[2018-11-22 01:30] LABS: BILIRUBIN,URINE NEGATIVE (NEGATIVE); CLARITY,URINE CLEAR; COLOR,URINE YELLOW; GLUCOSE, URINE (UA) NEGATIVE (NEGATIVE); KETONES,URINE NEGATIVE (NEGATIVE); LEUKOCYTE ESTERASE ,URINE NEGATIVE (NEGATIVE); NITRITE,URINE NEGATIVE (NEGATIVE); PH,URINE 5 (5-9); PROTEIN,URINE 1+ (NEGATIVE); UROBILINOGEN,URINE NORMAL (NORMAL)
[2018-11-22 01:41] LABS: BACTERIA,URINE MODERATE /HPF; CALCIUM OXALATE CRYSTALS,UR RARE /LPF; HYALINE CASTS, URINE RARE /LPF; RBC,URINE 25-50 /HPF
[2018-11-22] MEDS ORDERED: cefTRIAXone 1,000 MG/2.86 ml vial (IM ONLY) IM SCH (02:15)
[2018-11-22] MEDS ORDERED: LIDOCAINE 1% INJ 20 ML 20 ML VIAL INJ ONE (02:15)
[2018-11-22] MEDS ORDERED: AZITHROMYCIN 250 MG TAB (ZITHROMAX) PO ONE (02:15)
[2018-11-22] MEDS ORDERED: CIPR-225 PO (02:18)
[2018-11-22] MEDS ORDERED: METR500T PO (02:18)
--- NOTE | 2018-11-22 02:18 | ED GU-Female ---
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 Patient states they had sex tonight and there was brown blood present on spouse's penis after sex. Patient states when she wiped there was brown blood present. Patient states she is two weeks late on having her period and believes she is . She has had nausea, increased appetite and right lower quadrant abdominal pain. Nursing Sepsis Screen: No Definite Risk Allergies and Home Medications Allergies Coded Allergies: No Known Drug Allergies (Unverified , 04/07/18) Home Medications Ascorbic Acid 500 Mg Tablet, 500 MG PO DAILY, (Reported) Cranberry Conc/Ascorbic Acid 1 Each Capsule, 1 EACH PO DAILY, (Reported) Duloxetine HCl 60 Mg Capsule.dr, 60 MG PO DAILY, (Reported) Ferrous Sulfate 325 Mg Tablet, 325 MG PO DAILY, (Reported) Hydrocodone Bit/Acetaminophen 1 Tab Tab, 1 EACH PO Q6H PRN for PAIN-MODERATE Prescribed by: FLOYD MEMBRENO on 08/16/182027 Nitrofurantoin Macrocrystal 100 Mg Capsule, 100 MG PO DAILY, (Reported) Nitrofurantoin Monohyd/M-Cryst 100 Mg Capsule, 1 TAB PO BID Prescribed by: FLOYD MEMBRENO on 08/16/182027 Ondansetron 4 Mg Tab.rapdis, 4 MG PO Q6H PRN for NAUSEA/VOMITING Prescribed by: FLOYD MEMBRENO on 08/16/182027 Oxycodone HCl/Acetaminophen 1 Each Tablet, 1 TAB PO Q4H Prescribed by: BRII BARR on 04/10/18 0746 Phenazopyridine HCl 200 Mg Tablet, 1 TAB PO Q8H PRN for pain Prescribed by: FLOYD MEMBRENO on 08/16/182027 Past Opeufnf-Ijzcgn-Zaswif Hx Patient Social History Alcohol Use: Denies Use Recreational Drug Use: No Smoking Status: Current Everyday Smoker Type Used: Cigarettes 2nd Hand Smoke Exposure: Yes Recent Foreign Travel: No Contact w/Someone Who Travel: No Recent Infectious Disease Expo: No Recent Hopitalizations: No Physical Abuse: No Sexual Abuse: No Mistreated: No Fear: No Immunizations Up To Date PED Vaccines UTD: Yes Seasonal Allergies Seasonal Allergies: Yes Past Medical History Surgeries: Yes (D & C) Tonsillectomy Respiratory: No Cardiac: No Hypertension Neurological: No Last Menstrual Period: Oct 13, 2018 Reproductive Disorders: No Female Reproductive Disorders: Menstrual Problems Sexually Transmitted Disease: No HIV/AIDS: No Genitourinary: Yes UTI-Chronic Gastrointestinal: No Musculoskeletal: No Chronic Back Pain Endocrine: No HEENT: No Loss of Vision: Denies Hearing Impairment: Denies Cancer: No Psychosocial: Yes Suicide Attempts Integumentary: No Blood Disorders: No Adverse Reaction/Blood Tranf: No Family Medical History No Pertinent Family Hx Physical Exam Vital Signs Vital Signs - First Documented 11/22/18 00:13 Temp 36.7 Pulse 88 Resp 6 B/P (MAP) 125/81 (96) Pulse Ox 99 O2 Delivery Room Air Capillary Refill : Less Than 3 Seconds Height, Weight, BMI Height: 5'1.00" Weight: 187lbs. 6.0oz. 84.421184hk; 37.00 BMI Method:Stated Progress/Results/Core Measures Suspected Sepsis Recent Fever Within 48 Hours: No Infection Criteria Present: None New/Unexplained Altered Menta: No Sepsis Screen: No Definite Risk SIRS Temperature: Pulse: 88 Respiratory Rate: 6 Blood Pressure 125 /81 Mean: 96 Results/Orders Lab Results Laboratory Tests Test 11/22/18 01:17 Range/Units Urine Color YELLOW Urine Clarity CLEAR Urine pH 5 5-9 Urine Specific [place] 1.025 H 1.016-1.022 Urine Protein 1+ H NEGATIVE Urine Glucose (UA) NEGATIVE NEGATIVE Urine Ketones NEGATIVE NEGATIVE Urine Nitrite NEGATIVE NEGATIVE Urine Bilirubin NEGATIVE NEGATIVE Urine Urobilinogen NORMAL NORMAL MG/DL Urine Leukocyte Esterase NEGATIVE NEGATIVE Urine RBC (Auto) 4+ H NEGATIVE Urine RBC 25-50 H /HPF Urine WBC NONE /HPF Urine Squamous Epithelial Cells 2-5 /HPF Urine Crystals PRESENT H /LPF Urine Calcium Oxalate Crystals RARE H /LPF Urine Bacteria MODERATE H /HPF Urine Casts PRESENT /LPF Urine Hyaline Casts RARE /LPF Urine Mucus SMALL H /LPF Urine Culture Indicated NO Urine Test NEGATIVE NEGATIVE My Orders Orders - SCHUYLER MACE DO Hcg,Qualitative Urine (11/22/18 01:22) Ua Culture If Indicated (11/22/18 01:22) Vital Signs/I&O 11/22/18 00:13 Temp 36.7 Pulse 88 Resp 6 B/P (MAP) 125/81 (96) Pulse Ox 99 O2 Delivery Room Air Capillary Refill : Less Than 3 Seconds Blood Pressure Mean: 96 Departure Impression Primary Impression: Urinary tract infection Additional Impressions: Menstruation POSSIBLE PID Disposition: HOME, SELF-CARE Condition: Stable Departure-Patient Inst. Referrals: [facility] (PCP/Family) Primary Care Physician Patient Instructions: Menstruation, Pelvic Inflammatory Disease (DC), Urinary Tract Infection, Adult (DC) Add. Discharge Instructions: NOTHING IN VAGINA UNTIL YOU ARE RECHECKED AND CLEARED BY YOUR DR. TYLENOL AND MOTRIN NEEDED FOR PAIN FOLLOW UP WITH YOUR DR THIS WEEK FOR FURTHER CARE All discharge instructions reviewed with patient and/or family. Voiced understanding. Scripts Metronidazole (Flagyl) 500 Mg Tablet 2000 MG PO ONCE for FOR INFECTION, #4 TAB Prov: SCHUYLER MACE DO 11/22/18 Ciprofloxacin HCl (Cipro) 500 Mg Tablet 500 MG PO BID, #20 TAB Prov: SCHUYLER MACE DO 11/22/18 SCHUYLER MACE DO Nov 22, 2018 02:18
[2018-11-22 02:44] VITALS: BP 122/79
== END 2018-11-22 02:44 | disposition home or self-care (01) ==
LOC: EDUNIT# 00:06 → ER 00:07
DX: N39.0 Urinary tract infection, site not specified (principal); N92.5 Other specified irregular menstruation; I10 Essential (primary) hypertension; F17.210 Nicotine dependence, cigarettes, uncomplicated; Z87.440 Personal history of urinary (tract) infections; Z90.89 Acquired absence of other organs; Z91.5 Personal history of self-harm
CPT/HCPCS: 36415; 81000; 84703; 87070; 87205; 87210; 87491; 87591

== ENCOUNTER 2019-04-27 18:39 | Emergency (ER) | payer MEDICAID, MEDICARE ==
[~2019-04-27] VITALS: Ht 154.9 cm; Wt 89.8 kg
[~2019-04-27 18:39] MED LIST changes: +CIPR-225 PO; +METR500T PO
[2019-04-27 19:22] LABS: BASOPHILS % (AUTO) 0 % (0-10); EOSINOPHILS # (AUTO) 0.2 10^3/uL (0.0-0.3); EOSINOPHILS % (AUTO) 2 % (0-10); HEMATOCRIT 39 % (35-52); HEMOGLOBIN 12.4 G/DL (11.5-16.0); LYMPHOCYTES # (AUTO) 2.7 X 10^3 (1.0-4.0); LYMPHOCYTES % (AUTO) 22 % (12-44); MEAN CORPUSCULAR HEMOGLOBIN 24 PG (25-34); MEAN CORPUSCULAR HGB CONC 32 G/DL (32-36); MEAN CORPUSCULAR VOLUME 76 FL (80-99); MEAN PLATELET VOLUME 11.9 FL (7.4-10.4); MONOCYTES # (AUTO) 0.7 X 10^3 (0.0-1.0); MONOCYTES % (AUTO) 6 % (0-12); NEUTROPHILS # (AUTO) 8.7 X 10^3 (1.8-7.8); NEUTROPHILS % (AUTO) 71 % (42-75); PLATELET COUNT 255 10^3/uL (130-400); RED CELL DISTRIBUTION WIDTH 15.7 % (10.0-14.5); WHITE BLOOD COUNT 12.3 10^3/uL (4.3-11.0)
[2019-04-27 19:24] LABS: BILIRUBIN,URINE NEGATIVE (NEGATIVE); CLARITY,URINE SL CLOUDY; COLOR,URINE YELLOW; GLUCOSE, URINE (UA) NEGATIVE (NEGATIVE); KETONES,URINE NEGATIVE (NEGATIVE); LEUKOCYTE ESTERASE ,URINE 1+ (NEGATIVE); NITRITE,URINE NEGATIVE (NEGATIVE); PH,URINE 6.5 (5-9); PROTEIN,URINE NEGATIVE (NEGATIVE)
[2019-04-27 19:31] LABS: RBC,URINE RARE /HPF; WBC,URINE 0-2 /HPF
[2019-04-27 19:32] LABS: AMORPHOUS SEDIMENT,UR FEW AMOR URATES /LPF; BACTERIA,URINE MODERATE /HPF
[2019-04-27] MEDS ORDERED: NS IV 1000 ML 1,000 ML IV SCH (19:33)
[2019-04-27 19:41] LABS: ALANINE AMINOTRANSFERASE 38 U/L (0-55); ALBUMIN 4.2 GM/DL (3.2-4.5); ALKALINE PHOSPHATASE 78 U/L (40-136); BILIRUBIN,TOTAL 0.2 MG/DL (0.1-1.0); BUN/CREATININE RATIO 13; CALCIUM 9.5 MG/DL (8.5-10.1); CARBON DIOXIDE 24 MMOL/L (21-32); CHLORIDE 104 MMOL/L (98-107); GFR ESTIMATED > 60; GLUCOSE 103 MG/DL (70-105); POTASSIUM 3.7 MMOL/L (3.6-5.0); SODIUM 139 MMOL/L (135-145); TOTAL PROTEIN 6.7 GM/DL (6.4-8.2)
[2019-04-27] MEDS ORDERED: LIDOCAINE 2% VISCOUS 15 ML UDC PO ONE (20:45)
[2019-04-27] MEDS ORDERED: CEPHALEXIN 250 MG (KEFLEX) CAP PO ONE (20:45)
[2019-04-27] MEDS ORDERED: ANTACID SUSP 30 ML UDC (MYLANTA) PO ONE (20:45)
[2019-04-27] MEDS ORDERED: ONDANSETRON 4 MG/2 ML (SDV) Z0FRAN IVP ONE (20:45)
--- NOTE | 2019-04-27 21:05 | ED Abdominal Pain ---
General Chief Complaint: General Problems/Pain Stated Complaint: 5 WKS PREG - ABD / CHEST PAIN Nursing Triage Note: PT AMB TO RM 6 WITH COMPLAINT OF CHEST AND LOW ABD PAIN. STATES IS APPROX 4-5 WEEKS . SAW MUSTAPHA TODAY AND PUT ON ASA AND FLUCONAZOLE. Sepsis Screen: No Definite Risk Source of Information: Patient, Other (Dr. Ames) Exam Limitations: No Limitations History of Present Illness Date Seen by Provider: Apr 27, 2019 Time Seen by Provider: 18:56 Initial Comments This 23-year-old young lady presents to the emergency room at about 45 weeks gestational age with pelvic discomfort and right upper quadrant pain. She has had some intermittent nausea and vomiting during this but is not vomiting now. She denies any diarrhea or constipation. Her last bowel movement was today and was normal. She has had the right upper quadrant pain since 17:00. For lunch she ate 2 cheeseburgers at about 13:00. She last drank at about 15:00. She saw Dr. Ames in the clinic today and was diagnosed with yeast infection. She was prescribed Diflucan. 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 Dr. Ames noted a potential early on ultrasound. Patient denies any cough, fever, or shortness of breath. Allergies and Home Medications Allergies Coded Allergies: No Known Drug Allergies (Unverified , 04/07/18) Home Medications Ascorbic Acid 500 Mg Tablet, 500 MG PO DAILY, (Reported) Cephalexin 500 Mg Capsule, 500 MG PO BID Prescribed by: LOKESH WHIET on 04/27/192119 Ciprofloxacin HCl 500 Mg Tablet, 500 MG PO BID Prescribed by: SCHUYLER MACE on 11/22/18217 Cranberry Conc/Ascorbic Acid 1 Each Capsule, 1 EACH PO DAILY, (Reported) Duloxetine HCl 60 Mg Capsule.dr, 60 MG PO DAILY, (Reported) Famotidine 20 Mg Tablet, 20 MG PO BID Prescribed by: LOKESH WHITE on 04/27/192119 Ferrous Sulfate 325 Mg Tablet, 325 MG PO DAILY, (Reported) Hydrocodone Bit/Acetaminophen 1 Tab Tab, 1 EACH PO Q6H PRN for PAIN-MODERATE Prescribed by: FLOYD MEMBRENO on 08/16/182027 Metronidazole 500 Mg Tablet, 2,000 MG PO ONCE Prescribed by: SCHUYLER MACE on 11/22/18217 Nitrofurantoin Macrocrystal 100 Mg Capsule, 100 MG PO DAILY, (Reported) Nitrofurantoin Monohyd/M-Cryst 100 Mg Capsule, 1 TAB PO BID Prescribed by: FLOYD MEMBRENO on 08/16/182027 Ondansetron 4 Mg Tab.rapdis, 4 MG PO Q6H PRN for NAUSEA/VOMITING Prescribed by: FLOYD MEMBRENO on 08/16/182027 Oxycodone HCl/Acetaminophen 1 Each Tablet, 1 TAB PO Q4H Prescribed by: BRII BARR on 04/10/18 0746 Phenazopyridine HCl 200 Mg Tablet, 1 TAB PO Q8H PRN for pain Prescribed by: FLOYD MEMBRENO on 08/16/182027 Patient Home Medication List Home Medication List Reviewed: Yes Review of Systems Review of Systems Constitutional: no symptoms reported EENTM: No Symptoms Reported Respiratory: No Symptoms Reported Cardiovascular: No Symptoms Reported Gastrointestinal: See HPI Genitourinary: See HPI Musculoskeletal: no symptoms reported Skin: no symptoms reported Psychiatric/Neurological: No Symptoms Reported Endocrine: No Symptoms Reported Hematologic/Lymphatic: No Symptoms Reported Past Zxcoojw-Gejwrt-Ehcwlv Hx Past Med/Social Hx: Reviewed and Corrections made Patient Social History Alcohol Use: Denies Use Recreational Drug Use: No Smoking Status: Current Everyday Smoker Type Used: Cigarettes 2nd Hand Smoke Exposure: Yes Recent Foreign Travel: No Contact w/Someone Who Travel: No Recent Infectious Disease Expo: No Recent Hopitalizations: No Physical Abuse: No Sexual Abuse: No Mistreated: No Fear: No Immunizations Up To Date Tetanus Booster (TDap): Unknown PED Vaccines UTD: Yes Seasonal Allergies Seasonal Allergies: Yes Past Medical History Surgeries: Yes (D & C) Tonsillectomy Respiratory: No Cardiac: Yes Hypertension Neurological: No Hx : 4 Hx Para: 0 Hx Total # of Abortions (Sp): 3 Reproductive Disorders: Yes Female Reproductive Disorders: Menstrual Problems Sexually Transmitted Disease: No HIV/AIDS: No Genitourinary: Yes UTI-Chronic Gastrointestinal: No Musculoskeletal: Yes Chronic Back Pain Endocrine: No HEENT: No Loss of Vision: Denies Hearing Impairment: Denies Cancer: No Psychosocial: Yes Suicide Attempts Integumentary: No Blood Disorders: No Adverse Reaction/Blood Tranf: No Family Medical History Reviewed Nursing Family Hx No Pertinent Family Hx Physical Exam Vital Signs Vital Signs - First Documented 04/27/19 18:43 Temp 36.6 Pulse 96 Resp 20 B/P (MAP) 138/64 (88) Pulse Ox 100 O2 Delivery Room Air Capillary Refill : Less Than 3 Seconds Height/Weight/BMI Height: 5'1.00" Weight: 187lbs. 6.0oz. 84.601990oa; 37.00 BMI Method:Stated General Appearance: WD/WN, no apparent distress HEENT: PERRL/EOMI, normal ENT inspection, pharynx normal Neck: normal inspection Respiratory: lungs clear, normal breath sounds, no respiratory distress, no accessory muscle use Cardiovascular: regular rate, rhythm, no edema, no murmur Gastrointestinal: normal bowel sounds, soft; No distended; tenderness (moderate tenderness in the right upper quadrant with positive Patricia sign. Minimal pelvic tenderness.); No mass Extremities: normal inspection, no pedal edema Neurologic/Psychiatric: hand former II-XII nml as tested, no motor/sensory deficits, alert, normal mood/affect, oriented x 3 Skin: normal color, warm/dry Progress/Results/Core Measures Results/Orders Lab Results Laboratory Tests Test 04/27/19 19:15 04/27/19 19:20 Range/Units White Blood Count 12.3 H 4.3-11.0 10^3/uL Red Blood Count 5.09 4.35-5.85 10^6/uL Hemoglobin 12.4 11.5-16.0 G/DL Hematocrit 39 35-52 % Mean Corpuscular Volume 76 L 80-99 FL Mean Corpuscular Hemoglobin 24 L 25-34 PG Mean Corpuscular Hemoglobin Concent 32 32-36 G/DL Red Cell Distribution Width 15.7 H 10.0-14.5 % Platelet Count 255 130-400 10^3/uL Mean Platelet Volume 11.9 H 7.4-10.4 FL Neutrophils (%) (Auto) 71 42-75 % Lymphocytes (%) (Auto) 22 12-44 % Monocytes (%) (Auto) 6 0-12 % Eosinophils (%) (Auto) 2 0-10 % Basophils (%) (Auto) 0 0-10 % Neutrophils # (Auto) 8.7 H 1.8-7.8 X 10^3 Lymphocytes # (Auto) 2.7 1.0-4.0 X 10^3 Monocytes # (Auto) 0.7 0.0-1.0 X 10^3 Eosinophils # (Auto) 0.2 0.0-0.3 10^3/uL Basophils # (Auto) 0.0 0.0-0.1 10^3/uL Sodium Level 139 135-145 MMOL/L Potassium Level 3.7 3.6-5.0 MMOL/L Chloride Level 104 98-107 MMOL/L Carbon Dioxide Level 24 21-32 MMOL/L Anion Gap 11 5-14 MMOL/L Blood Urea Nitrogen 9 7-18 MG/DL Creatinine 0.70 0.60-1.30 MG/DL Estimat Glomerular Filtration Rate > 60 BUN/Creatinine Ratio 13 Glucose Level 103 70-105 MG/DL Calcium Level 9.5 8.5-10.1 MG/DL Corrected Calcium 9.3 8.5-10.1 MG/DL Total Bilirubin 0.2 0.1-1.0 MG/DL Aspartate Amino Transf (AST/SGOT) 23 5-34 U/L Alanine Aminotransferase (ALT/SGPT) 38 0-55 U/L Alkaline Phosphatase 78 40-136 U/L C-Reactive Protein High Sensitivity 1.07 H 0.00-0.50 MG/DL Total Protein 6.7 6.4-8.2 GM/DL Albumin 4.2 3.2-4.5 GM/DL Human Chorionic Gonadotropin, Quant 7204 H <5 MIU/ML Urine Color YELLOW Urine Clarity SL CLOUDY Urine pH 6.5 5-9 Urine Specific [place] 1.025 H 1.016-1.022 Urine Protein NEGATIVE NEGATIVE Urine Glucose (UA) NEGATIVE NEGATIVE Urine Ketones NEGATIVE NEGATIVE Urine Nitrite NEGATIVE NEGATIVE Urine Bilirubin NEGATIVE NEGATIVE Urine Urobilinogen 0.2 < = 1.0 MG/DL Urine Leukocyte Esterase 1+ H NEGATIVE Urine RBC (Auto) TRACE-I NEGATIVE Urine RBC RARE /HPF Urine WBC 0-2 /HPF Urine Squamous Epithelial Cells 5-10 /HPF Urine Crystals PRESENT H /LPF Urine Amorphous Sediment FEW VIDA URATES H /LPF Urine Bacteria MODERATE H /HPF Urine Casts NONE /LPF Urine Mucus SMALL H /LPF Urine Culture Indicated YES My Orders Orders - LOKESH ALMONTE MD Cbc With Automated Diff (04/27/19 19:02) Comprehensive Metabolic Panel (04/27/19 19:02) Hcg,Quantitative (04/27/19 19:02) Ua Culture If Indicated (04/27/19 19:02) Ed Iv/Invasive Line Start (04/27/19 19:02) Urine Culture (04/27/19 19:20) Hs C Reactive Protein (04/27/19 19:33) Ns Iv 1000 Ml (Sodium Chloride 0.9%) (04/27/19 19:33) Cephalexin Capsule (Keflex Capsule) (04/27/19 20:45) Lidocaine 2% Viscous 15 Ml (Xylocaine Vi (04/27/19 20:45) Antacid Suspension (Mylanta Suspension (04/27/19 20:45) Ondansetron Injection (Zofran Injectio (04/27/19 20:45) Famotidine Injection (Pepcid Injection) (04/27/19 21:15) Medications Given in ED Current Medications Medications Dose Ordered Sig/Robert Route Start Time Stop Time Status Last Admin Dose Admin Al Hydrox/Mg Hydrox/Simethicone 30 ml ONCE ONCE PO 04/27/19 20:45 04/27/19 20:46 DC 04/27/19 20:47 30 ML Cephalexin HCl 500 mg ONCE ONCE PO 04/27/19 20:45 04/27/19 20:46 DC 04/27/19 20:46 500 MG Famotidine 20 mg ONCE ONCE IVP 04/27/19 21:15 04/27/19 21:16 DC 04/27/19 21:27 20 MG Lidocaine HCl 15 ml ONCE ONCE PO 04/27/19 20:45 04/27/19 20:46 DC 04/27/19 20:47 15 ML Ondansetron HCl 4 mg ONCE ONCE IVP 04/27/19 20:45 04/27/19 20:46 DC 04/27/19 20:47 4 MG Vital Signs/I&O 04/27/19 04/27/19 18:43 21:36 Temp 36.6 Pulse 96 71 Resp 20 18 B/P (MAP) 138/64 (88) 119/68 Pulse Ox 100 100 O2 Delivery Room Air Room Air Blood Pressure Mean: 88 Progress Progress Note : Progress Note Workup was unremarkable. Patient was treated with a GI cocktail and Zofran which she stated improved her pain from 910 down to 6/10. She was given a liter of IV fluid. She had bacteria in her urine which brought urinary tract infection into question. She was given Keflex and instructed to continue her Diflucan. I did discuss the case with Dr. Ames. We agree that an ultrasound in the morning as appropriate. Patient was given an order form. Results are to be called to Dr. Ames. Departure Impression Primary Impression: Right upper quadrant pain Additional Impression: Urinary tract infection Qualified Codes: N39.0 - Urinary tract infection, site not specified Disposition: HOME, SELF-CARE Condition: Improved Departure-Patient Inst. Decision time for Depature: 21:18 Referrals: [facility] (PCP/Family) Primary Care Physician Patient Instructions: Urinary Tract Infections in Adults, Acute Abdomen (Belly Pain), Adult (DC) Add. Discharge Instructions: Have a clear liquid diet which includes water, juices, Gatorade, Jell-O, chicken broth, etc. Do not eat or drink within 6 hours of your ultrasound tomorrow. Return to the hospital and check in at registration as soon as you can tomorrow morning for the ultrasound. Bring the order form with you. Take the medications prescribed by Dr. Ames. Also take the antibiotic and antacid medication prescribed from the ER until otherwise directed by Dr. Ames. You may additionally take Tylenol (acetaminophen) up to 1000 mg every 6 hours as needed for pain. Return to the emergency room if you have worsening symptoms All discharge instructions reviewed with patient and/or family. Voiced understanding. Scripts Famotidine (Pepcid) 20 Mg Tablet 20 MG PO BID, #30 TAB Prov: LOKESH ALMONTE MD 04/27/19 Cephalexin (Keflex) 500 Mg Capsule 500 MG PO BID, #14 CAP Prov: LOKESH ALMONTE MD 04/27/19 Copy Copies To 1: BRII AMES MD, JOSHUA T MD Apr 27, 2019 21:05
[2019-04-27] MEDS ORDERED: FAMOTIDINE 20MG/2ML IV (PEPCID) IVP ONE (21:15)
[2019-04-27] MEDS ORDERED: FAMO-119 PO (21:20)
[2019-04-27] MEDS ORDERED: CEPH-507 PO (21:20)
[2019-04-27 21:36] VITALS: BP 119/68
== END 2019-04-27 21:36 | disposition home or self-care (01) ==
LOC: EDUNIT# 18:39 → ER 18:41
DX: O26.891 Other specified pregnancy related conditions, first trimester (principal); R10.11 Right upper quadrant pain; O23.41 Unspecified infection of urinary tract in pregnancy, first trimester; O99.331 Smoking (tobacco) complicating pregnancy, first trimester; F17.210 Nicotine dependence, cigarettes, uncomplicated; O16.1 Unspecified maternal hypertension, first trimester; Z3A.01 Less than 8 weeks gestation of pregnancy
CPT/HCPCS: 36415; 80053; 81000; 84702; 85025; 86141; 87088

== ENCOUNTER → 2019-04-28 | Outpatient (CLI) | payer OTHER, MEDICAID ==
[~2019-04-28] MED LIST changes: +FAMO-119 PO
--- NOTE | 2019-04-28 11:10 | Diagnostic Imaging Report ---
PROCEDURE: US Gallbladder. TECHNIQUE: Multiple real-time grayscale images were obtained over the right upper quadrant in various projections. INDICATION: Right upper quadrant abdominal pain. FINDINGS: Liver is normal in size at 14.9 cm. No discrete liver mass is detected. Portal vein is patent and shows normal direction of flow. Gallbladder is without stones or sludge. No wall thickening or biliary ductal dilatation is seen. The pancreas is unremarkable. Proximal abdominal aorta is nonaneurysmal. IVC is patent. Right kidney is without calculi or hydronephrosis. There is no ascites. IMPRESSION: Unremarkable gallbladder ultrasound. Dictated by: Dictated on workstation # [id number]
== END ==
LOC: RAD 10:05
PROVIDERS: ATTEND Family Medicine
DX: R10.11 Right upper quadrant pain (principal)
CPT/HCPCS: 76705

== ENCOUNTER 2019-05-29 21:41 | Emergency (ER) | payer OTHER, MEDICAID ==
[~2019-05-29] VITALS: Ht 155 cm; Wt 85.4 kg
[~2019-05-29 21:41] MED LIST changes: +ASCO500T17 PO; -ASCO500T6 PO
[2019-05-29 21:47] VITALS: BP 117/68
[2019-05-29] MEDS ORDERED: RX-ONDANSETRON 4 MG ODT (ZOFRAN) PPK #4 PO STA (22:11)
--- NOTE | 2019-05-29 22:15 | NUR ---
UNABLE TO OBTAIN FHT.
[2019-05-29 22:20] LABS: CLARITY,URINE CLEAR; COLOR,URINE AMBER; GLUCOSE, URINE (UA) NEGATIVE (NEGATIVE); KETONES,URINE 3+ (NEGATIVE); LEUKOCYTE ESTERASE ,URINE NEGATIVE (NEGATIVE); NITRITE,URINE NEGATIVE (NEGATIVE); PROTEIN,URINE NEGATIVE (NEGATIVE)
--- NOTE | 2019-05-29 22:23 | ED GI ---
General Chief Complaint: Abdominal/GI Problems Stated Complaint: 10 WKS C/O NAUSEA Nursing Triage Note: C/O VOMITTING AFTER EATING/DRINKING X1 WEEK. DENIES FOLLOW UP WITH [facility]. REPORTS BEING 10 WEEKS . Sepsis Screen: No Definite Risk Source of Information: Patient (LIMITED HISTORIAN--APPEARS VERY IMMATURE) History of Present Illness Date Seen by Provider: May 29, 2019 Time Seen by Provider: 21:55 Initial Comments PT ARRIVES VIA POV FROM HOME PT IS 10 WEEKS --STATES SHE HAS SEEN DR. LUCIANO "2 OR 3 TIMES" SINCE BECOMING , AND HAS ANOTHER APPOINTMENT THIS WEEK-06/04/19 LMP 03/21/19 AB 3 STATES SHE HAS HAD ONGOING NAUSEA AND VOMITING FOR THE LAST WEEK "BUT NOT EVERY DAY" --HAS VOMITED 3 TIMES TODAY, BUT IS NOT NAUSEATED NOW NO DIARRHEA NO ABDOMINAL OR PELVIC PAIN NO URINARY SYMPTOMS NO FEVER NO VAGINAL BLEEDING OR DISCHARGE SYMPTOMS ARE NO DIFFERENT TONIGHT HAS NOT SOUGHT CARE UNTIL TONIGHT HAS NOT TAKEN ANYTHING FOR SYMPTOMS NO PROBLEMS URINATING--LAST VOID WAS 2100 AT HOME, AND AGAIN ON ARRIVAL TO ER. NO WEIGHT LOSS PCP: [facility] [place] [facility]: DR. LUCIANO Allergies and Home Medications Allergies Coded Allergies: No Known Drug Allergies (Unverified , 04/07/18) Home Medications Ascorbic Acid 500 Mg Tablet, 500 MG PO DAILY, (Reported) Doxylamine/Pyridoxine HCl 1 Each Tablet.dr, 2 EACH PO HS Prescribed by: SCHUYLER MACE on 05/29/19 5582 Patient Home Medication List Home Medication List Reviewed: Yes Review of Systems Review of Systems Constitutional: no symptoms reported EENTM: No Symptoms Reported Respiratory: No Symptoms Reported Cardiovascular: No Symptoms Reported Gastrointestinal: See HPI; Denies Abdominal Pain, Denies Constipated, Denies Diarrhea; Nausea, Vomiting Genitourinary: Denies Burning, Denies Frequency, Denies Flank Pain, Denies Pain, Denies Urgency Musculoskeletal: no symptoms reported Skin: no symptoms reported Psychiatric/Neurological: No Symptoms Reported Endocrine: No Symptoms Reported Hematologic/Lymphatic: No Symptoms Reported Past Xcxrask-Ixhspr-Lkdcwm Hx Past Med/Social Hx: Reviewed and Corrections made Patient Social History Alcohol Use: Denies Use Recreational Drug Use: No Smoking Status: Current Everyday Smoker Type Used: Cigarettes 2nd Hand Smoke Exposure: Yes Recent Foreign Travel: No Contact w/Someone Who Travel: No Recent Infectious Disease Expo: No Recent Hopitalizations: No Physical Abuse: No Sexual Abuse: No Mistreated: No Fear: No Immunizations Up To Date Tetanus Booster (TDap): Unknown PED Vaccines UTD: Yes Seasonal Allergies Seasonal Allergies: Yes Past Medical History Surgeries: Yes (D & C) Tonsillectomy Respiratory: No Cardiac: Yes Hypertension Neurological: No : Yes Last Menstrual Period: Mar 20, 2019 Hx : 4 Hx Para: 0 Hx Total # of Abortions (Sp): 3 Reproductive Disorders: Yes Female Reproductive Disorders: Menstrual Problems Sexually Transmitted Disease: No HIV/AIDS: No Genitourinary: Yes UTI-Chronic Gastrointestinal: No Musculoskeletal: Yes Chronic Back Pain Endocrine: No HEENT: No Loss of Vision: Denies Hearing Impairment: Denies Cancer: No Psychosocial: Yes Anxiety, Suicide Attempts, Depression Integumentary: No Blood Disorders: No Adverse Reaction/Blood Tranf: No Family Medical History No Pertinent Family Hx Physical Exam Vital Signs Vital Signs - First Documented 05/29/19 21:47 Temp 36.9 Pulse 83 Resp 18 B/P (MAP) 117/68 (84) Pulse Ox 99 O2 Delivery Room Air Capillary Refill : Less Than 3 Seconds Height/Weight/BMI Height: 5'1.00" Weight: 187lbs. 6.0oz. 84.507875ne; 35.00 BMI Method:Stated General Appearance: WD/WN, no apparent distress, obese, other (DOES NOT APPEAR ILL OR TO BE IN ANY DISCOMFORT OR DISTRESS. APPEARS VERY IMMATURE FOR AGE. ) HEENT: other (ORAL MUCOSA MOIST) Neck: normal inspection Respiratory: normal breath sounds, no respiratory distress, no accessory muscle use Cardiovascular: regular rate, rhythm, no murmur Gastrointestinal: normal bowel sounds, non tender, soft Extremities: normal inspection, no pedal edema, normal capillary refill Back: normal inspection, no CVA tenderness Neurologic/Psychiatric: progressive assembler and fitter II-XII nml as tested, no motor/sensory deficits, alert, normal mood/affect, oriented x 3 Skin: normal color, warm/dry Progress/Results/Core Measures Results/Orders Lab Results Laboratory Tests Test 05/29/19 22:00 Range/Units Urine Color JAIDA H Urine Clarity CLEAR Urine pH 7.0 5-9 Urine Specific [place] 1.020 1.016-1.022 Urine Protein NEGATIVE NEGATIVE Urine Glucose (UA) NEGATIVE NEGATIVE Urine Ketones 3+ H NEGATIVE Urine Nitrite NEGATIVE NEGATIVE Urine Bilirubin 1+ H NEGATIVE Urine Urobilinogen 2.0 < = 1.0 MG/DL Urine Leukocyte Esterase NEGATIVE NEGATIVE Urine RBC (Auto) NEGATIVE NEGATIVE Urine RBC NONE /HPF Urine WBC 0-2 /HPF Urine Squamous Epithelial Cells 5-10 /HPF Urine Crystals PRESENT H /LPF Urine Amorphous Sediment RARE VIDA URATES H /LPF Urine Bacteria MODERATE H /HPF Urine Casts NONE /LPF Urine Mucus LARGE H /LPF Urine Culture Indicated YES Urine Opiates Screen NEGATIVE NEGATIVE Urine Oxycodone Screen NEGATIVE NEGATIVE Urine Methadone Screen NEGATIVE NEGATIVE Urine Propoxyphene Screen NEGATIVE NEGATIVE Urine Barbiturates Screen NEGATIVE NEGATIVE Ur Tricyclic Antidepressants Screen NEGATIVE NEGATIVE Urine Phencyclidine Screen NEGATIVE NEGATIVE Urine Amphetamines Screen NEGATIVE NEGATIVE Urine Methamphetamines Screen NEGATIVE NEGATIVE Urine Benzodiazepines Screen NEGATIVE NEGATIVE Urine Cocaine Screen NEGATIVE NEGATIVE Urine Cannabinoids Screen NEGATIVE NEGATIVE My Orders Orders - SCHUYLER MACE DO Urine Bedside (05/29/19 21:55) Heart Tones (05/29/19 21:55) Drug Screen Stat (Urine) (05/29/19 21:55) Ua Culture If Indicated (05/29/19 21:55) Rx-Ondansetron Po (Rx-Zofran Po) (05/29/19 22:11) Urine Culture (05/29/19 22:00) Vital Signs/I&O 05/29/19 21:47 Temp 36.9 Pulse 83 Resp 18 B/P (MAP) 117/68 (84) Pulse Ox 99 O2 Delivery Room Air Blood Pressure Mean: 84 Progress Progress Note : Progress Note UNABLE TO OBTAIN FHT'S AT THIS TIME NO NAUSEA OR VOMITING DURING ER STAY Departure Impression Primary Impression: Nausea and vomiting during prior to 22 weeks gestation Additional Impression: Urinary tract infection Disposition: 01 HOME, SELF-CARE Condition: Stable Departure-Patient Inst. Referrals: [facility] (PCP/Family) Primary Care Physician BRII LUCIANO MD Patient Instructions: Morning Sickness (DC), Urinary Tract Infection, Adult (DC) Add. Discharge Instructions: CLEAR LIQUIDS--WATER, BROTH, JELLO, GATORADE WHEN YOUR NAUSEA IS BETTER, ADD BRATS DIET TO CLEAR LIQUIDS--BANANAS, RICE, APPLESAUCE, TOAST, SALTINES FOLLOW UP WITH DR. LUCIANO THIS WEEK SCHEDULED. All discharge instructions reviewed with patient and/or family. Voiced understanding. Scripts Nitrofurantoin Monohyd/M-Cryst (Macrobid 100 mg Capsule) 100 Mg Capsule 1 TAB PO BID, #20 CAP Prov: SCHUYLER MACE DO 05/30/19 Doxylamine/Pyridoxine HCl (Breanna Singleton 10-10 mg Tablet) 1 Each Tablet.dr 2 EACH PO HS, #10 TAB Prov: SCHUYLER MACE DO 05/29/19 SCHUYLER MACE DO May 29, 2019 22:23
[2019-05-29 22:27] LABS: BACTERIA,URINE MODERATE /HPF; WBC,URINE 0-2 /HPF
[2019-05-29] MEDS ORDERED: DOXY1TAB3 PO (22:28)
[2019-05-29 22:29] LABS: AMORPHOUS SEDIMENT,UR RARE AMOR URATES /LPF
[2019-05-29 22:33] LABS: BILIRUBIN,URINE 1+ (NEGATIVE)
[2019-05-29 22:46] LABS: AMPHETAMINE SCREEN, URINE NEGATIVE (NEGATIVE); BARBITURATE SCREEN URINE NEGATIVE (NEGATIVE); BENZODIAZEPINES SCREEN URINE NEGATIVE (NEGATIVE); CANNABINOID SCREEN, URINE NEGATIVE (NEGATIVE); COCAINE SCREEN URINE NEGATIVE (NEGATIVE); METHADONE STAT NEGATIVE (NEGATIVE); METHAMPHETAMINE SCREEN URINE S NEGATIVE (NEGATIVE); OPIATE SCREEN URINE NEGATIVE (NEGATIVE); OXYCODONE STAT NEGATIVE (NEGATIVE); PROPOXYPHENE STAT NEGATIVE (NEGATIVE); TRICYCLIC ANTIDEPRESSANTS SCRE NEGATIVE (NEGATIVE)
[2019-05-30] MEDS ORDERED: NITR-65 PO (00:04)
== END 2019-05-29 22:33 | disposition home or self-care (01) ==
LOC: EDUNIT# 21:41 → ER 21:44
DX: O23.41 Unspecified infection of urinary tract in pregnancy, first trimester (principal); O21.0 Mild hyperemesis gravidarum; O99.331 Smoking (tobacco) complicating pregnancy, first trimester; F17.210 Nicotine dependence, cigarettes, uncomplicated; Z3A.10 10 weeks gestation of pregnancy
CPT/HCPCS: 80306; 81000; 84703; 87088; 99283

== ENCOUNTER 2019-07-15 20:37 | Outpatient (CLI) | payer OTHER, MEDICAID ==
[~2019-07-15] VITALS: Ht 154.9 cm; Wt 81.9 kg
[~2019-07-15 20:37] MED LIST changes: +DOXY1TAB3 PO
--- NOTE | 2019-07-15 20:42 | NUR ---
RED CANTU presented to unit via ambulatory from ED, accompanied by s.o., with c/o VOMITING / DIZZY. RED CANTU weighed, gowned, voided, and to bed. EFHM and TOCO applied, VS taken. RED CANTU oriented to bed controls, call light, TV, heat, and A/C controls.
[2019-07-15] MEDS ORDERED: FAMO-119 PO (20:50)
[2019-07-15] MEDS ORDERED: D5 LR IV SOLUTION 1,000 ML IV ONE (20:54)
[2019-07-15] MEDS ORDERED: D5 LR IV SOLUTION 1,000 ML IV SCH ×2 (21:00→22:00)
[2019-07-15 21:04] VITALS: BP 122/65
[2019-07-15 21:31] LABS: BASOPHILS % (AUTO) 0 % (0-10); EOSINOPHILS # (AUTO) 0.2 10^3/uL (0.0-0.3); EOSINOPHILS % (AUTO) 1 % (0-10); HEMATOCRIT 36 % (35-52); HEMOGLOBIN 12.2 G/DL (11.5-16.0); LYMPHOCYTES # (AUTO) 2.3 X 10^3 (1.0-4.0); LYMPHOCYTES % (AUTO) 16 % (12-44); MEAN CORPUSCULAR HEMOGLOBIN 27 PG (25-34); MEAN CORPUSCULAR HGB CONC 34 G/DL (32-36); MEAN CORPUSCULAR VOLUME 79 FL (80-99); MEAN PLATELET VOLUME 13.1 FL (7.4-10.4); MONOCYTES # (AUTO) 0.7 X 10^3 (0.0-1.0); MONOCYTES % (AUTO) 5 % (0-12); NEUTROPHILS # (AUTO) 10.7 X 10^3 (1.8-7.8); NEUTROPHILS % (AUTO) 77 % (42-75); PLATELET COUNT 219 10^3/uL (130-400); RED CELL DISTRIBUTION WIDTH 16.2 % (10.0-14.5); WHITE BLOOD COUNT 13.9 10^3/uL (4.3-11.0)
[2019-07-15 21:33] LABS: BILIRUBIN,URINE 1+ (NEGATIVE); CLARITY,URINE SL CLOUDY; COLOR,URINE ORANGE; GLUCOSE, URINE (UA) TRACE (NEGATIVE); KETONES,URINE TRACE (NEGATIVE); LEUKOCYTE ESTERASE ,URINE NEGATIVE (NEGATIVE); NITRITE,URINE NEGATIVE (NEGATIVE); PH,URINE 5.5 (5-9); PROTEIN,URINE TRACE (NEGATIVE)
[2019-07-15 21:43] LABS: AMORPHOUS SEDIMENT,UR FEW AMOR URATES /LPF; BACTERIA,URINE TRACE /HPF; CALCIUM OXALATE CRYSTALS,UR MODERATE /LPF; WBC,URINE 0-2 /HPF
--- NOTE | 2019-07-15 21:48 | NUR ---
Call to Dr Ames with report on labs. Pt may discharge after 2nd bag of IV fluids.
--- NOTE | 2019-07-15 22:14 | NUR ---
Pt up to void, Pt eating applesauce and fruit cup with no nausea noted.
[2019-07-15 23:15] VITALS: BP 122/65
--- NOTE | 2019-07-15 23:16 | NUR ---
Pt discharged to home with no incidence. IV removed and family meeting pt at entrance to hospital.
--- NOTE | 2019-07-16 08:32 | Physician Query-Final Dx ---
SHARA CAMARA 07/16/19 0832: Clinic Account Progress/Dx Physician Query: Please give diagnosis Please include # weeks gestation Date of Service Jul 15, 2019 at 20:37 BRII LUCIANO MD 07/16/19 1012: Clinic Account Progress/Dx DIAGNOSIS: Diagnosis 16 weeks gestation - hyperemesis gravidarum SHARA CAMARA Jul 16, 2019 08:32 BRII LUCIANO MD Jul 16, 2019 10:12
== END 2019-07-15 23:15 | disposition home or self-care (01) ==
LOC: WSo 20:37 → LDRP 20:37 → WSo 23:15
PROVIDERS: ATTEND Obstetrics & Gynecology
DX: O21.1 Hyperemesis gravidarum with metabolic disturbance (principal); Z3A.16 16 weeks gestation of pregnancy
CPT/HCPCS: 36415; 81000; 85025; 96360; 96361; 99213

== ENCOUNTER 2019-10-07 17:33 | Outpatient (CLI) | payer OTHER, MEDICAID ==
[~2019-10-07] VITALS: Ht 154.9 cm; Wt 80.0 kg
--- NOTE | 2019-10-07 18:00 | NUR ---
RED CANTU presented to unit via wc from ED, accompanied by staff, with c/o STOMACH PAIN. RED CANTU weighed, gowned, voided, and to bed. EFHM and TOCO applied, VS taken. RED CANTU oriented to bed controls, call light, TV, heat, and A/C controls.
[2019-10-07 18:41] VITALS: BP 108/54
[2019-10-07 18:45] VITALS: BP 108/54
[2019-10-07 18:56] LABS: BILIRUBIN,URINE NEGATIVE (NEGATIVE); CLARITY,URINE CLEAR; COLOR,URINE YELLOW; GLUCOSE, URINE (UA) NEGATIVE (NEGATIVE); KETONES,URINE NEGATIVE (NEGATIVE); LEUKOCYTE ESTERASE ,URINE TRACE (NEGATIVE); NITRITE,URINE NEGATIVE (NEGATIVE); PROTEIN,URINE NEGATIVE (NEGATIVE)
--- NOTE | 2019-10-07 19:05 | NUR ---
Called Dr. Ames with pt update and history. Discussed strip, vs, pt c/o, sve, and history. New orders for discharge obtained.
[2019-10-07 19:24] LABS: RBC,URINE 0-2 /HPF
[2019-10-07 19:25] LABS: BACTERIA,URINE FEW /HPF
--- NOTE | 2019-10-07 19:40 | NUR ---
no ctx noted. fhr 140s. accels noted. no decels seen. moderate variablilty.
--- NOTE | 2019-10-07 19:40 | NUR ---
Discharge papers explained to pt. denies questions. papers signed. copy to pt. efm and toco removed. pt left to dress.
--- NOTE | 2019-10-07 19:55 | NUR ---
Pt taken per wc to er exit accompanied by this rn. no s/s distress noted. pt to private car.
--- NOTE | 2019-10-08 08:37 | Physician Query-Final Dx ---
SHARA CAMARA 10/08/19 0837: Clinic Account Progress/Dx Physician Query: Please give diagnosis Please include # weeks gestation Date of Service Oct 07, 2019 at 17:33 BRII LUCIANO MD 10/08/19 1358: Clinic Account Progress/Dx DIAGNOSIS: Diagnosis FALSE LABOR AT 26 WEEKS SHARA CAMARA Oct 08, 2019 08:37 BRII LUCIANO MD Oct 08, 2019 13:58
== END 2019-10-07 19:55 | disposition home or self-care (01) ==
LOC: WSo 17:33 → LDRP 17:35 → WSo 19:55
PROVIDERS: ATTEND Obstetrics & Gynecology
DX: O47.02 False labor before 37 completed weeks of gestation, second trimester (principal); Z3A.26 26 weeks gestation of pregnancy
CPT/HCPCS: 81000; 87088; G0463; 99213

== ENCOUNTER 2019-10-09 14:52 | Emergency (ER) | payer OTHER, MEDICAID ==
[~2019-10-09] VITALS: Ht 162 cm; Wt 87.0 kg
[2019-10-09 14:55] VITALS: BP 130/74
[2019-10-09] MEDS ORDERED: AZIT250T PO (15:14)
--- NOTE | 2019-10-09 15:14 | NUR ---
PER [facility] THE PTS COVID TEST FROM TWO DAYS AGO WAS NEGATIVE.
--- NOTE | 2019-10-09 15:19 | ED Cough/URI ---
General Chief Complaint: Cough/Cold/Flu Symptoms Stated Complaint: COUGH,FEVER Nursing Triage Note: COUGH X ONE WEEK WITH A RUNNY NOSE. SHE THINKS SHE MIGHT HAVE HAD A FEVER TODAY AT 1300. REPORTS 100.1 AND SHE TOOK TYLENOL. WAS SWABBED FOR COVID 3 DAYS AGO IN DAT AT [facility]. Sepsis Screen: Possible Severe Sepsis Risk Source: patient History of Present Illness Date Seen by Provider: Oct 09, 2019 Time Seen by Provider: 15:00 Initial Comments Patient is a 28 week G1, P0 23-year-old female who presents with nasal congestion, rhinorrhea and cough for the past several days. Patient also reports fever of 101.3 this afternoon took Tylenol prior to ED arrival. Patient had COVID testing performed 2 days ago which is confirmed negative. Denies shortness of breath, wheezing, nausea vomiting, sweats. No weakness dizziness loss of smell or taste. No abdominal pain, cramping, urinary frequency urgency or flank pain. Other acute symptoms or complaints. Timing/Duration: week, intermittent Associated Symptoms: cough, fever/chills Allergies and Home Medications Allergies Coded Allergies: No Known Drug Allergies (Unverified , 07/15/19) Home Medications Azithromycin 250 Mg Tablet, 250 MG PO UD TAKE 2 TABLETS TODAY, THEN TAKE 1 TABLET DAILY FOR 4 MORE DAYS Prescribed by: VIPUL SHARIF on 10/09/19 1514 Patient Home Medication List Home Medication List Reviewed: Yes Review of Systems Review of Systems Constitutional: see HPI EENTM: see HPI Respiratory: see HPI Cardiovascular: see HPI Gastrointestinal: see HPI Musculoskeletal: see HPI Skin: see HPI Psychiatric/Neurological: See HPI Hematologic/Lymphatic: See HPI Immunological/Allergic: see HPI All Other Systems Reviewed Negative Unless Noted: Yes Past Erubmug-Bgwbmf-Lpxgbi Hx Patient Social History Alcohol Use: Denies Use Recreational Drug Use: No Smoking Status: Current Everyday Smoker Type Used: Cigarettes 2nd Hand Smoke Exposure: No Recent Foreign Travel: No Contact w/Someone Who Travel: No Recent Infectious Disease Expo: No Recent Hopitalizations: No Physical Abuse: No Sexual Abuse: No Mistreated: No Fear: No Immunizations Up To Date Tetanus Booster (TDap): Unknown PED Vaccines UTD: Yes Seasonal Allergies Seasonal Allergies: Yes Past Medical History Surgeries: Yes (D & C) Tonsillectomy Respiratory: No Cardiac: Yes Hypertension Neurological: No Reproductive Disorders: Yes Female Reproductive Disorders: Menstrual Problems Sexually Transmitted Disease: No HIV/AIDS: No Genitourinary: Yes UTI-Chronic Gastrointestinal: No Musculoskeletal: Yes Chronic Back Pain Endocrine: No HEENT: No Loss of Vision: Denies Hearing Impairment: Denies Cancer: No Psychosocial: Yes Anxiety, Suicide Attempts, Depression Integumentary: No Blood Disorders: No Adverse Reaction/Blood Tranf: No Family Medical History No Pertinent Family Hx Physical Exam Vital Signs - First Documented 10/09/19 14:55 Temp 36.8 Pulse 100 Resp 18 B/P (MAP) 130/74 (92) Pulse Ox 98 O2 Delivery Room Air Capillary Refill : Less Than 3 Seconds Height: 5'1.00" Weight: 187lbs. 6.0oz. 84.518145gr; 33.00 BMI Method:Stated General Appearance: WD/WN Eyes: Bilateral Eye Normal Inspection, Bilateral Eye PERRL, Bilateral Eye EOMI HEENT: PERRL/EOMI, other (rhinorrhea, congestion) Neck: supple Respiratory: chest non-tender, lungs clear Cardiovascular: normal peripheral pulses Gastrointestinal: non tender, soft, other (gravid abdomen) Extremities: normal range of motion Neurologic/Psychiatric: no motor/sensory deficits, alert, normal mood/affect, oriented x 3 Skin: normal color, warm/dry Focused Exam Sepsis Stage: Ruled Out Progress/Results/Core Measures Suspected Sepsis Recent Fever Within 48 Hours: Yes Infection Criteria Present: Suspected New Infection New/Unexplained Altered Menta: No Sepsis Screen: Possible Severe Sepsis Risk SIRS Temperature: Pulse: 100 Respiratory Rate: 18 Blood Pressure 130 /74 Mean: 92 Results/Orders Vital Signs/I&O 10/09/19 14:55 Temp 36.8 Pulse 100 Resp 18 B/P (MAP) 130/74 (92) Pulse Ox 98 O2 Delivery Room Air Capillary Refill : Less Than 3 Seconds Blood Pressure Mean: 92 Departure Communication (Admissions) Mild URI symptoms with out respiratory compromise. Patient COVID negative from swab 2 days ago. Z-Cyril prescribed. Recommend watchful waiting and OB/PCP follow- up as scheduled. Return precautions reviewed. Patient verbalizes understanding and agreement discharge instructions prior to departure. Impression Primary Impression: Viral syndrome Disposition: HOME, SELF-CARE Condition: Stable Departure-Patient Inst. Decision time for Depature: 15:15 Patient Instructions: Viral Upper Respiratory Infection, Adult (DC) Add. Discharge Instructions: Please increase daily fluids and take Tylenol every 6 hours as needed for fever. Take Z-pack as directed and follow up with your PCP. Follow up with your PCP/OB as scheduled. All discharge instructions reviewed with patient and/or family. Voiced understanding. Scripts Azithromycin (Zithromax) 250 Mg Tablet 250 MG PO UD, #6 TAB TAKE 2 TABLETS TODAY, THEN TAKE 1 TABLET DAILY FOR 4 MORE DAYS Prov: VIPUL SHARIF DO 10/09/19 VIPUL SHARIF DO Oct 09, 2019 15:19
== END 2019-10-09 15:16 | disposition home or self-care (01) ==
LOC: EDUNIT# 14:52 → ER FS 14:53
DX: O26.893 Other specified pregnancy related conditions, third trimester (principal); B34.9 Viral infection, unspecified; F17.210 Nicotine dependence, cigarettes, uncomplicated; Z20.828 Contact with and (suspected) exposure to other viral communicable diseases; Z3A.28 28 weeks gestation of pregnancy

== ENCOUNTER 2019-11-21 23:49 | Outpatient (CLI) | payer OTHER, MEDICAID ==
[~2019-11-21] VITALS: Ht 154.9 cm; Wt 86.1 kg
[~2019-11-21 23:49] MED LIST changes: +AZIT250T PO
--- NOTE | 2019-11-21 23:56 | NUR ---
RED CANTU presented to unit via ambulation from ED, accompanied by family member, with c/o ABD PAIN, L BACK PAIN. RED CANTU weighed, gowned, voided, and to bed. EFHM and TOCO applied, VS taken. RED CANTU oriented to bed controls, call light, TV, heat, and A/C controls.
[2019-11-22 00:08] VITALS: BP 126/73
[2019-11-22 00:13] VITALS: BP 126/73
[2019-11-22 00:21] VITALS: BP 126/73
[2019-11-22] MEDS ORDERED: ACET325C7 PO (00:25)
--- NOTE | 2019-11-22 00:35 | NUR ---
discharge packet given and explained, understanding voiced, no concerns noted. Pt ambulatory off unit at this time accompanied by SO.
--- NOTE | 2019-11-22 08:36 | Physician Query-Final Dx ---
SHARA CAMARA 11/22/19 0836: Clinic Account Progress/Dx Physician Query: Please give diagnosis Please include # weeks gestation Date of Service Nov 21, 2019 at 23:49 BRII LUCIANO MD 11/23/19 0802: Clinic Account Progress/Dx DIAGNOSIS: Diagnosis at 35 weeks false labor SHARA CAMARA Nov 22, 2019 08:36 BRII LUCIANO MD Nov 23, 2019 08:02
== END 2019-11-22 00:35 | disposition home or self-care (01) ==
LOC: WSo 23:49 → LDRP 23:50 → WSo 11-22 00:35
PROVIDERS: ATTEND Obstetrics & Gynecology
DX: O47.03 False labor before 37 completed weeks of gestation, third trimester (principal); Z3A.35 35 weeks gestation of pregnancy
CPT/HCPCS: 99213

== ENCOUNTER 2019-11-22 09:14 | Outpatient (CLI) | payer OTHER, MEDICAID ==
[~2019-11-22] VITALS: Ht 154 cm; Wt 85.8 kg
[~2019-11-22 09:14] MED LIST changes: +ACET325C7 PO
--- NOTE | 2019-11-22 09:19 | NUR ---
RED CANTU presented to unit via from ED, accompanied by female neighbor, with c/o CONTRACTIONS. RED CANTU weighed, gowned, voided, and to bed. EFHM and TOCO applied, VS taken. RED CANTU oriented to bed controls, call light, TV, heat, and A/C controls. Pt/female friend state she was on this unit about midnight and was sent home. Dilated to 1.5 cms. Pt states the "nurse" from the Dr Silva's office called her this morning and told her to come back to OB to be rechecked . I inquired if she had called office and she said no. Thinks contraction are about 30 minutes apart. 0940 Pt very tense with attempted exam - moving about. Head low but unable to fell cervix. 0950 M Jeremías Rn checked pt and stated that she was very posterior and high, 1.5cms. and thick. 0958 Dr Ames phoned per cell phone. No answer - message left on phone. [address] Ames at office. Physician stated that the pt called in this morning with complaints of contractions every 3 minutes. Rare contractions - pt denies feeling anything. Will do 1 liter of IV fluids and re-exam.
[2019-11-22 09:45] VITALS: BP 131/83
[2019-11-22] MEDS ORDERED: D5 LR IV SOLUTION 1,000 ML IV ONE ×2 (10:33→10:45)
--- NOTE | 2019-11-22 12:05 | NUR ---
IV infused, no cervical change -Dr Ames notified. Outpt OB home instructions given with verbalized understanding. Ambulated to exit to meet family.
--- NOTE | 2019-11-23 08:20 | Physician Query-Final Dx ---
SHARA CAMARA 11/23/19 0820: Clinic Account Progress/Dx Physician Query: Please give diagnosis Please include # weeks gestation Date of Service Nov 22, 2019 at 09:14 BRII LUCIANO MD 11/24/19 0814: Clinic Account Progress/Dx DIAGNOSIS: Diagnosis 35 weeks gestation false labor SHARA CAMARA Nov 23, 2019 08:20 BRII LUCIANO MD Nov 24, 2019 08:14
== END 2019-11-22 12:05 | disposition home or self-care (01) ==
LOC: WSo 09:14 → LDRP 09:15 → WSo 12:05
PROVIDERS: ATTEND Obstetrics & Gynecology
DX: O62.9 Abnormality of forces of labor, unspecified (principal); Z3A.00 Weeks of gestation of pregnancy not specified
CPT/HCPCS: 96360; G0463; 99213

== ENCOUNTER 2019-12-08 06:36 | Inpatient (IN) | payer MEDICARE, MEDICAID ==
[~2019-12-08] VITALS: Ht 154.9 cm; Wt 88.0 kg
[2019-12-08] VITALS (50 sets, daily range): BP systolic 82–172; BP diastolic 52–92
--- NOTE | 2019-12-08 06:44 | NUR ---
RED CANTU presented to unit from Home, accompanied by Significant Other, with c/o Induction of LABOR. RED CANTU weighed, gowned, voided, and to bed. EFHM and TOCO applied, VS taken. RED CANTU oriented to bed controls, call light, TV, heat, and A/C controls.
[2019-12-08] MEDS ORDERED: OXYTOCIN PRE-MIX DRIP 500 ML IV SCH ×2 (07:31→15:11)
[2019-12-08] MEDS ORDERED: OXYTOCIN PRE-MIX DRIP 500 ML IV ONE (07:36)
[2019-12-08 07:41] LABS: BASOPHILS % (AUTO) 0 % (0-10); EOSINOPHILS % (AUTO) 1 % (0-10); HEMOGLOBIN 9.2 g/dL (11.5-16.0)
[2019-12-08 07:43] LABS: EOSINOPHILS # (AUTO) 0.2 10^3/uL (0.0-0.3); HEMATOCRIT 29 % (35-52); LYMPHOCYTES # (AUTO) 1.7 10^3/uL (1.0-4.0); LYMPHOCYTES % (AUTO) 15 % (12-44); MEAN CORPUSCULAR HEMOGLOBIN 25 pg (25-34); MEAN CORPUSCULAR HGB CONC 32 g/dL (32-36); MEAN CORPUSCULAR VOLUME 78 fL (80-99); MONOCYTES # (AUTO) 0.4 10^3/uL (0.0-1.0); MONOCYTES % (AUTO) 4 % (0-12); NEUTROPHILS # (AUTO) 8.9 10^3/uL (1.8-7.8); NEUTROPHILS % (AUTO) 79 % (42-75); PLATELET COUNT 217 10^3/uL (130-400); WHITE BLOOD COUNT 11.3 10^3/uL (4.3-11.0)
[2019-12-08] MEDS: D5 LR IV SOLUTION 1,000 ML IV SCH ×2 (07:43→15:30)
[2019-12-08 08:03] LABS: BILIRUBIN,URINE NEGATIVE (NEGATIVE); CLARITY,URINE CLEAR; COLOR,URINE YELLOW; GLUCOSE, URINE (UA) NEGATIVE (NEGATIVE); KETONES,URINE NEGATIVE (NEGATIVE); LEUKOCYTE ESTERASE ,URINE NEGATIVE (NEGATIVE); NITRITE,URINE NEGATIVE (NEGATIVE); PROTEIN,URINE TRACE (NEGATIVE)
[2019-12-08 08:14] LABS: BACTERIA,URINE MODERATE /HPF
--- NOTE | 2019-12-08 08:51 | History & Physical ---
History and Physical Date Seen by Provider: Dec 08, 2019 Time Seen by Provider: 08:48 this patient is a 23-year-old 1 white female with an EDC of December 25, 2019. She was seen in clinic yesterday where ultrasound demonstrated a 34 week appearing fetus at 38 weeks gestation. Decision was made to admit for induction of labor due to apparent IUGR. In addition patient blood pressure was in the 160s over high 80s. This was a significant change from her baseline. There was no proteinuria again delivery was planned for additional indication of PIH Patient's GBS culture was negative. She denies rupture membranes or bleeding. She's had no other specific problems with this . Allergies are none Medications are vitamins Medical surgical and social histories are per the antepartum record HEENT exam is normal Neck is supple no lymphadenopathy no thyromegaly Abdomen is gravid soft nontender nondistended Extremities show no clubbing cyanosis. There is no Homans sign. pelvic exam shows a cervix 2+ and Ms. dilated 80 percent effaced and 0+1 station anterior and soft. This equates to a Everett score of at least 8 Assessment and plan 38 week with PIH and with IUGR on sound. Plan is for induction of labor with anticipation for vaginal delivery. Plans preparations are in place for if needed 38 weeks with IUGR and PIH Allergies and Home Medications Allergies Coded Allergies: No Known Drug Allergies (Unverified , 07/15/19) Patient Home Medication List Home Medication List Reviewed: Yes BRII LUCIANO MD Dec 08, 2019 08:51
[2019-12-08] MEDS ORDERED: OXYC1TAB87 PO (08:54)
[2019-12-08] MEDS ORDERED: IBUP-1780 PO (08:54)
[2019-12-08] MEDS ORDERED: DOCU-143 PO (08:54)
--- NOTE | 2019-12-08 08:55 | Discharge Inst-Surgical ---
Discharge Inst-Surgical Depart Medication/Instructions New, Converted or Re-Newed RX: RX on Chart Consults/Follow Up Patient Instructions: as directed Orders & Referrals Follow Up Appt: Call to make follow up appt. for patient in 4 weeks. Activity Per routine post vaginal delivery instructions. Please call in RX to patient pharmacy. Diet as tolerated Patient may shower or tub bathe as desired. Activity Activity as Tolerated: No Diet Discharge Diet: No Restrictions BRII LUCIANO MD Dec 08, 2019 08:55
[2019-12-08] MEDS ORDERED: fentaNYL 2 mcg/ml BUPIVA 0.125 100 ML ONE (09:15)
[2019-12-08] MEDS ORDERED: BUPIVACAINE 0.25% 30 ML (SENSORCAINE) VIAL ONE (09:21)
[2019-12-08] MEDS ORDERED: LIDOCAINE PF 2% 5 ML (XYLOCAINE) VIAL ONE (09:21)
[2019-12-08] MEDS ORDERED: fentaNYL INJECTION 100 MCG/2 ML AMP ONE (09:22)
--- NOTE | 2019-12-08 09:24 | NUR ---
Helene Meyer COMPUTER SYSTEMS SECURITY ANALYST here for epidural placement. Procedure explained, consent reviewed and signed by anesthesia. Questions answered to patient's satisfaction. Time out taken to verify correct patient/procedure. Patient up to side of bed, assisted into sitting position. Betadine prep done x3 and sterile drape applied. Local done, see anesthesia record. Test dose given, see anesthesia record for drug and dosage. Epidural catheter secured in place. Epidural placement complete. Assisted back into bed, monitors adjusted. Epidural dosed, see anesthesia record. Epidural of Fentanyl/Bupivicaine @ 12 cc/hr stated per pump. Patient tolerated procedure well.
[2019-12-08] MEDS ORDERED: LACTATED RINGERS 1,000 ML IV SCH (10:07)
[2019-12-08] MEDS ORDERED: NALOXONE 0.4 MG/ML 1 ML (NARCAN) VIAL IV PRN (10:15)
[2019-12-08] MEDS ORDERED: EPIDURAL (fentaNYL 2 MCG/ML BUPIVA 0.125%)100 ML BAG EPI PRN (10:15)
[2019-12-08] MEDS ORDERED: ONDANSETRON 4 MG/2 ML (SDV) Z0FRAN IV PRN (10:15)
[2019-12-08] MEDS ORDERED: diphenhydrAMINE 50 MG/ML INJ (BENADRYL) IV PRN (10:15)
[2019-12-08] MEDS ORDERED: LIDOCAINE 1% INJ 20 ML 20 ML VIAL ONE (14:04)
[2019-12-08] MEDS: LIDOCAINE/EPI 2% 1:200,00 (XYLOCAINE) 10 ML VIAL INJ PRN ×2 (14:11→14:21)
--- NOTE | 2019-12-08 15:10 | NUR ---
Verbal order for Methergine verified with Dr. Ames r/t PIH. Proceed with original order.
[2019-12-08] MEDS ORDERED: METHYLERGONOVINE 0.2 MG/ML (METHERGINE) AMP ONE (15:12)
[2019-12-08] MEDS ORDERED: METHYLERGONOVINE 0.2 MG/ML (METHERGINE) AMP IM ONE (15:15)
[2019-12-08] MEDS ORDERED: oxyCODONE/APAP 5/325MG (PERCOCET 5) TABLET PO PRN (15:15)
[2019-12-08] MEDS ORDERED: ONDANSETRON 4 MG/2 ML (SDV) Z0FRAN IVP PRN (15:15)
[2019-12-08] MEDS ORDERED: MEASLES,MUMPS,RUBELLA 1 EA INJ SC ONE (15:15)
[2019-12-08] MEDS ORDERED: BENZOCAINE/MENTHOL (DERMOPLAST) 60 ML CAN TP PRN (15:15)
[2019-12-08] MEDS ORDERED: TETANUS,DIPTH,PERTUSS P/F (BOOSTRIX) 0.5 ML VIAL IM ONE (15:15)
--- NOTE | 2019-12-08 15:25 | NUR ---
Dr. Ames notified of patient's BP's. New orders received.
[2019-12-08] MEDS: CATHETER FLUSH 10 ML SYR IV SCH (16:03)
[2019-12-08] MEDS: KETOROLAC 30 MG/ML VIAL IVP SCH (16:06)
--- NOTE | 2019-12-08 17:35 | NUR ---
Fundus firm U/1 with small rubra lochia noted. No clots. Pericare completed and clean pad and panties applied.
--- NOTE | 2019-12-08 17:40 | NUR ---
Patient transferred via wheelchair to room 310. Patient oriented to room and bed controls. Plan of care reviewed. Patient verbalizes understanding and questions answered.
[2019-12-08] MEDS: DOCUSATE SODIUM 100 MG (COLACE) CAP PO SCH (19:51)
--- NOTE | 2019-12-08 21:27 | NUR ---
Dr. Ames called to check on pt, update given, no new orders rc'd. Will round on pt. in am, will notify if any problems.
[2019-12-09] MEDS: KETOROLAC 30 MG/ML VIAL IVP SCH ×3 (00:08→06:52)
[2019-12-09 00:09] VITALS: BP 128/70
[2019-12-09] MEDS: CATHETER FLUSH 10 ML SYR IV SCH ×2 (00:09→06:32)
--- NOTE | 2019-12-09 02:32 | OPERATIVE REPORT ---
DATE OF SERVICE: 12/08/2019 DELIVERY NOTE The patient delivered by term spontaneous vaginal delivery of viable female infant with Apgars of 8 and 8 at 1 and 5 minutes respectively, weight of 6 pounds, time of 1441 and a cord blood pH is pending. The infant delivered over a midline episiotomy performed secondary to a category II heart rate tracing warranting expediting the second stage of labor. The episiotomy was performed, baby delivered promptly. The infant was bulb suctioned on delivery of the head and again on completion of delivery. Umbilical cord was doubly clamped when it was pulseless. The father cut the cord, the baby was passed to mom's abdomen. Cord bloods were obtained. Placenta delivered spontaneously Santos. It was a battledore placenta and had an accessory lobe that was not completely delivered with the bulk of the placenta. Manual exploration of the uterine cavity. I removed additional portions of what was the accessory lobe of the placenta. Once that was completed, the cervix, vagina, rectum, and perineum were examined and found intact, except for the midline episiotomy, which was repaired with a single suture of 3-0 Vicryl Rapide in the usual manner to good hemostasis and good reapproximation. The patient tolerated the delivery and the repair well and was recovered in the LDR. The baby remained in the LDR with the mom for recovery. Job ID: [id number] DocumentID: [id number] Dictated Date: 12/08/2019 17:57:44 Risk Developer Date: 12/09/2019 02:31:07 Dictated By: BRII LUCIANO MD
[2019-12-09 04:35] VITALS: BP 103/53
--- NOTE | 2019-12-09 07:57 | Anesthesia-Regional Post-Op ---
Regional Patient Condition Mental Status: Alert, Oriented x3 Circulation: Same as Pre-Op Headache: Absent Sensation: Full Recovery Motor Block: Absent Post Op Complications Complications None Follow Up Care/Instructions Patient Instructions None needed. Anesthesia/Patient Condition Patient is doing well, no complaints, stable vital signs, no apparent adverse anesthesia problems. No complications reported per nursing. VANDANA GALARZA CRNA Dec 09, 2019 07:57
[2019-12-09] MEDS: DOCUSATE SODIUM 100 MG (COLACE) CAP PO SCH ×2 (08:59→20:20)
--- NOTE | 2019-12-09 09:15 | NUR ---
Dr Ames here to see pt.
[2019-12-09 09:20] VITALS: BP 128/68
--- NOTE | 2019-12-09 09:20 | Progress Note ---
Standard Progress Note Progress Notes/Assess & Plan Date Seen by a Provider: Dec 09, 2019 Time Seen by a Provider: 09:19 Progress/Assessment & Plan THIS PATIENT IS WITHOUT COMPLAINT. sHE IS AMBULATING, voiding, tolerating oral intake well and has good pain control patient denies headache, denies shortness of breath, denies nausea vomiting, and denies chest pain. Vital Signs 12/09/19 04:35 Temp 36.8 Pulse 73 Resp 18 B/P (MAP) 103/53 (70) Pulse Ox 98 O2 Delivery Room Air vital signs are stable. Patient is afebrile. fundus is firm below the umbilicus and nontender. Extremities show no clubbing or cyanosis. There is no Homans sign. Assessment and plan day number 1 status post term spontaneous vaginal delivery at 38 weeks gestation. Plan is for routine convalescence care Final Diagnosis 38 week spontaneous vaginal delivery BRII LUCIANO MD Dec 09, 2019 09:20
--- NOTE | 2019-12-09 13:23 | NUR ---
CM/SS: Visited with pt and significant other as per consult related to need Plan: Pt will return home, with baby Summary: Pt and significant other are walking around the floor with baby. They are agreeable to go to the room to visit. This worker ask about items for baby. They report that they have a baby bed, car seat and other supplies for baby. They report being in services at [facility]. Baby will follow there as well. Pt has some issues with her speech as well as significant other. Significant other seems to be older than pt. Pt reports that she has WIC and notified them of the . Pt is given information on [employer] and Healthy Families. Educated on post depression. Addendum: 12/09/19 at 1530 by SHARYN WATSON Pt is encouraged to follow up with her physician and to talk with them as to issues related to depression. Pt seems to have some cognitive delays and issues with her speech. Significant other says very little and he too has some issues with his speech. Pt is wished well.
[2019-12-09] MEDS: IBUPROFEN 800 MG (MOTRIN) TAB PO SCH ×2 (13:56→20:20)
--- NOTE | 2019-12-09 15:30 | NUR ---
CM/SS: Staff have notified this worker that they received a anonymous call from the community that pt's significant other is a Registered Sexual Offender. This worker followed up via a search the [facility] Registered Sexual offender website, and [place] [employer] and significant other Dante Juarez is listed as a lifetime sexual offender. Telephone Call to [facility] office - Talk with Rossy Mcintosh, first officer and flight instructor. She does verify that Dante Juarez has a personal banking officer named Aakash Mclaughlin. She will have the personal banking officer call this worker back to verify the above information and if he is allowed to be on the OB floor at this time.
--- NOTE | 2019-12-09 15:53 | NUR ---
CM/SS: Returned call from Aakash Mclaughlin - returning officer - She indicates that Dante Juarez is not allowed to be around pt due to his Sexual offender status - she did give him permission to attend an appointment - he also may have some pending charges related to the pt. Aakash is given the information that our hospital received a phone call from the community advising that he is an offender and is on the maternity floor. This worker informed Aakash that significant other will be asked to leave the hospital. She reports she is ok with that. She will follow up with him later this week.
[2019-12-09 17:00] VITALS: BP 120/61
--- NOTE | 2019-12-09 17:00 | NUR ---
Pt report received from Rosemary MORIN
[2019-12-09 20:20] VITALS: BP 123/60
[2019-12-10 03:12] VITALS: BP 106/53
[2019-12-10] MEDS: IBUPROFEN 800 MG (MOTRIN) TAB PO SCH ×2 (03:12→08:34)
--- NOTE | 2019-12-10 07:29 | Postpartum Progress Note ---
Note Note Day # 2 Subjective: Covering this patient for Dr. Ames who delivered her 01/07. Patient is without complaints. Ambulating, voiding. Tolerating a regular diet without nausea or vomiting. Normal lochia. Pain is well controlled with oral pain medications. Objective: Physical Exam: General - Alert and oriented, no apparent distress Abdomen - Soft, appropriately tender to palpation, non-distended, fundus firm at umbilicus Extremities - no edema, negative Jean Claude's bilaterally Assessment: PPD 2 NVD Plan: Routine care. Encourage breast feeding. Encourage ambulation. Ferrous sulfate supplementation. Plan for discharge today Vitals - Labs Vital Signs - I&O Vital Signs Date Time Temp Pulse Resp B/P (MAP) Pulse Ox O2 Delivery O2 Flow Rate FiO2 12/10/19 03:12 36.4 78 16 106/53 (70) 97 Room Air 12/09/19 20:20 36.3 91 16 123/60 (81) 97 Room Air 12/09/19 17:00 36.7 93 16 120/61 (80) 97 Room Air 12/09/19 09:20 36.8 84 18 128/68 (88) 97 Room Air Labs Microbiology 12/08/19 Urine Culture - Final, Complete 3 or more isolates ARASH GARCIA DO Dec 10, 2019 07:29
[2019-12-10] MEDS: DOCUSATE SODIUM 100 MG (COLACE) CAP PO SCH (08:34)
--- NOTE | 2019-12-10 09:45 | NUR ---
Visited with pt about smoking cessation. Pt states, "I won't smoke around my baby. I've tried to quit before, it worked for just a little while." Enc. given. Offered [facility] classes and Demetrio quit infor, Handout on smoking cessation given.
[2019-12-10 09:55] VITALS: BP 157/88
--- NOTE | 2019-12-10 13:45 | NUR ---
CM/SS: CHILD PROTECTIVE SERVICE REPORT MADE - Protective Service Report # [id number] made due to the pt's child - being around a known registered sex offender.
== END 2019-12-10 11:10 | disposition home or self-care (01) | DRG 807 ==
LOC: LDRP 06:36
PROVIDERS: ADMIT Obstetrics & Gynecology; ATTEND Obstetrics & Gynecology
PROC: 10E0XZZ Delivery of Products of Conception, External Approach (ICD-10-PCS; principal; 2019-12-08)
PROC: 0W8NXZZ Division of Female Perineum, External Approach (ICD-10-PCS; 2019-12-08)
DX: O36.5930 Maternal care for other known or suspected poor fetal growth, third trimester, not applicable or unspecified (principal); Z37.0 Single live birth; O13.4 Gestational [pregnancy-induced] hypertension without significant proteinuria, complicating childbirth; Z3A.38 38 weeks gestation of pregnancy
CPT/HCPCS: 36415; 81000; 85025; 86850; 86900; 86901; 87088

== ENCOUNTER 2020-04-14 22:21 | Emergency (ER) | payer OTHER, MEDICAID ==
[~2020-04-14] VITALS: Ht 154.9 cm; Wt 84.3 kg
[~2020-04-14 22:21] MED LIST changes: +DOCU-143 PO; +IBUP-1780 PO
[2020-04-14] MEDS ORDERED: NS IV 1000 ML 1,000 ML IV SCH (23:15)
[2020-04-14] MEDS ORDERED: ONDANSETRON 4 MG/2 ML (SDV) Z0FRAN IVP ONE (23:15)
[2020-04-14 23:18] LABS: BASOPHILS % (AUTO) 0 % (0-10); EOSINOPHILS # (AUTO) 0.2 10^3/uL (0.0-0.3); EOSINOPHILS % (AUTO) 2 % (0-10); HEMATOCRIT 32 % (35-52); HEMOGLOBIN 9.4 g/dL (11.5-16.0); LYMPHOCYTES # (AUTO) 2.4 10^3/uL (1.0-4.0); LYMPHOCYTES % (AUTO) 26 % (12-44); MEAN CORPUSCULAR HEMOGLOBIN 20 pg (25-34); MEAN CORPUSCULAR HGB CONC 29 g/dL (32-36); MEAN CORPUSCULAR VOLUME 67 fL (80-99); MEAN PLATELET VOLUME 12.1 fL (9.0-12.2); MONOCYTES # (AUTO) 0.5 10^3/uL (0.0-1.0); MONOCYTES % (AUTO) 5 % (0-12); NEUTROPHILS # (AUTO) 6.2 10^3/uL (1.8-7.8); NEUTROPHILS % (AUTO) 66 % (42-75); PLATELET COUNT 342 10^3/uL (130-400); WHITE BLOOD COUNT 9.4 10^3/uL (4.3-11.0)
[2020-04-14 23:22] LABS: ALBUMIN 4.1 GM/DL (3.2-4.5); CHLORIDE 104 MMOL/L (98-107); POTASSIUM 3.6 MMOL/L (3.6-5.0); SODIUM 138 MMOL/L (135-145)
[2020-04-14 23:24] LABS: CALCIUM 9.1 MG/DL (8.5-10.1)
[2020-04-14 23:25] LABS: GLUCOSE 101 MG/DL (70-105); TOTAL PROTEIN 7.1 GM/DL (6.4-8.2)
[2020-04-14 23:26] LABS: CARBON DIOXIDE 22 MMOL/L (21-32)
[2020-04-14 23:27] LABS: BILIRUBIN,TOTAL 0.5 MG/DL (0.1-1.0)
[2020-04-14 23:28] LABS: ALKALINE PHOSPHATASE 141 U/L (40-136); CREATININE SERUM 0.58 MG/DL (0.60-1.30); GFR ESTIMATED > 60
[2020-04-14 23:29] LABS: CLARITY,URINE SL CLOUDY; COLOR,URINE ORANGE; GLUCOSE, URINE (UA) NEGATIVE (NEGATIVE); KETONES,URINE NEGATIVE (NEGATIVE); LEUKOCYTE ESTERASE ,URINE TRACE (NEGATIVE); NITRITE,URINE NEGATIVE (NEGATIVE); PROTEIN,URINE TRACE (NEGATIVE)
[2020-04-14 23:29] LABS: BUN/CREATININE RATIO 10
[2020-04-14 23:31] LABS: ALANINE AMINOTRANSFERASE 316 U/L (0-55)
[2020-04-14 23:32] LABS: LIPASE 9 U/L (8-78)
[2020-04-14 23:38] LABS: BACTERIA,URINE TRACE /HPF; BILIRUBIN,URINE 1+ (NEGATIVE)
--- NOTE | 2020-04-15 00:50 | ED Abdominal Pain ---
General Chief Complaint: Abdominal/GI Problems Stated Complaint: RUQ PAIN 7 WKS PREG Nursing Triage Note: PATIENT ARRIVES VIA EMS AMBULITORY TO ROOM 8. CHIEF COMPLAINT OF RIGHT SIDED UPPER ABDOMINAL PAIN AND NAUSEA. THIS PATIENT REPORTS SHE IS "8 WEEKS " AND HAS BEEN IN CONTACT WITH DR LUCIANO WHO REFERRED HER TO THE ED. Sepsis Screen: No Definite Risk Source of Information: Patient Exam Limitations: No Limitations History of Present Illness Date Seen by Provider: Apr 14, 2020 Time Seen by Provider: 23:05 Initial Comments Patient is a 24-year-old female who presents to the emergency department today with a chief complaint of abdominal pain onset yesterday. Patient states that she has had several episodes of nausea and vomiting. Patient states she is approximately 8 weeks . Patient has her first appointment a week from today. Patient states that she has not had fever. She states she does not really associate the pain with food specifically. She has never had pain like this before. She denies any fevers or chills. She continues to have right-sided abdominal pain with nausea this evening. She denies diarrhea, black or bloody stools. She states she has had a little bit of discomfort with urination. No abnormal vaginal discharge or spotting. Patient states she has not even taken Tylenol for this pain. She does not like to take medications. LMP February 11, 2020 Patient is a G5, P1 with 3 previous miscarriages. Timing/Duration: 1-2 Days Severity/Quality: Moderate, Cramping Location: RUQ, RLQ Radiation: No Radiation Activities at Onset: None Associated Symptoms: Nausea/Vomiting Allergies and Home Medications Allergies Coded Allergies: No Known Drug Allergies (Unverified , 07/15/19) Home Medications Docusate Sodium 100 Mg Capsule, 100 MG PO BID Prescribed by: BRII BARR on 12/08/19 0854 Hydrocodone/Acetaminophen 1 Each Tablet, 1 TAB PO Q6H PRN for PAIN-MODERATE (5- 7) Prescribed by: OLESYA MORALES on 04/15/20 0056 Ibuprofen 800 Mg Tablet, 800 MG PO Q6H PRN for PAIN Prescribed by: BRII BARR on 12/08/19 0854 Oxycodone HCl/Acetaminophen 1 Each Tablet, 1 TAB PO Q4H Prescribed by: BRII ABRR on 12/08/19 0854 Patient Home Medication List Home Medication List Reviewed: Yes Review of Systems Review of Systems Constitutional: see HPI EENTM: No Symptoms Reported Respiratory: No Symptoms Reported Cardiovascular: No Symptoms Reported Gastrointestinal: Abdominal Pain, Nausea, Poor Appetite, Vomiting Genitourinary: Burning Musculoskeletal: no symptoms reported Skin: no symptoms reported Psychiatric/Neurological: No Symptoms Reported All Other Systems Reviewed Negative Unless Noted: Yes Past Uvszayl-Phzfze-Htzxvj Hx Patient Social History Alcohol Use: Denies Use Type Used: Cigarettes 2nd Hand Smoke Exposure: Yes Recent Infectious Disease Expo: No (TESTED NEGITIVE FOR COVID 04/10/20, TESTED D/T COUGH, DX SEASONAL ALLERGIES) Recent Hopitalizations: No Immunizations Up To Date Tetanus Booster (TDap): Less than 5yrs PED Vaccines UTD: Yes Seasonal Allergies Seasonal Allergies: No Past Medical History Surgeries: Yes (D & C 2018) Adenoidectomy, Tonsillectomy Respiratory: No Cardiac: No Hypertension Neurological: No : Yes Expected Date of Delivery: Nov 17, 2020 Last Menstrual Period: Feb 11, 2020 Hx : 5 Hx Para: 1 Hx Total # of Abortions (Sp): 3 Reproductive Disorders: Yes Female Reproductive Disorders: Denies Sexually Transmitted Disease: No HIV/AIDS: No Genitourinary: No UTI-Chronic Gastrointestinal: No Musculoskeletal: No Chronic Back Pain Endocrine: No HEENT: No Loss of Vision: Denies Hearing Impairment: Denies Cancer: No Psychosocial: Yes Depression Integumentary: No Blood Disorders: No Adverse Reaction/Blood Tranf: No Family Medical History Diabetes mellitus 19 FATHER Grandparents (Paternal Grandparents) Fibrocystic disease of breast Grandparents (Maternal Grandmother) Hypertension 19 FATHER 19 MOTHER Grandparents (Maternal Grandfather Paternal Grandparents) No Pertinent Family Hx Physical Exam Vital Signs Vital Signs - First Documented 04/14/20 22:21 Temp 36.2 Pulse 87 Resp 18 B/P (MAP) 134/81 (98) Capillary Refill : Less Than 3 Seconds Height/Weight/BMI Height: 5'1.00" Weight: 187lbs. 6.0oz. 84.955169db; 35.00 BMI Method:Stated General Appearance: WD/WN, no apparent distress HEENT: normal ENT inspection Neck: normal inspection Respiratory: lungs clear, normal breath sounds, no respiratory distress Cardiovascular: regular rate, rhythm Gastrointestinal: soft, tenderness (Positive Patricia sign) Extremities: non-tender, normal inspection, no pedal edema, no calf tenderness Neurologic/Psychiatric: no motor/sensory deficits, alert, normal mood/affect, oriented x 3 Skin: normal color, warm/dry Progress/Results/Core Measures Results/Orders Lab Results Laboratory Tests Test 04/14/20 22:40 04/14/20 23:20 Range/Units White Blood Count 9.4 4.3-11.0 10^3/uL Red Blood Count 4.81 3.80-5.11 10^6/uL Hemoglobin 9.4 L 11.5-16.0 g/dL Hematocrit 32 L 35-52 % Mean Corpuscular Volume 67 L 80-99 fL Mean Corpuscular Hemoglobin 20 L 25-34 pg Mean Corpuscular Hemoglobin Concent 29 L 32-36 g/dL Red Cell Distribution Width 17.4 H 10.0-14.5 % Platelet Count 342 130-400 10^3/uL Mean Platelet Volume 12.1 9.0-12.2 fL Immature Granulocyte % (Auto) 1 % Neutrophils (%) (Auto) 66 42-75 % Lymphocytes (%) (Auto) 26 12-44 % Monocytes (%) (Auto) 5 0-12 % Eosinophils (%) (Auto) 2 0-10 % Basophils (%) (Auto) 0 0-10 % Neutrophils # (Auto) 6.2 1.8-7.8 10^3/uL Lymphocytes # (Auto) 2.4 1.0-4.0 10^3/uL Monocytes # (Auto) 0.5 0.0-1.0 10^3/uL Eosinophils # (Auto) 0.2 0.0-0.3 10^3/uL Basophils # (Auto) 0.0 0.0-0.1 10^3/uL Immature Granulocyte # (Auto) 0.1 0.0-0.1 10^3/uL Sodium Level 138 135-145 MMOL/L Potassium Level 3.6 3.6-5.0 MMOL/L Chloride Level 104 98-107 MMOL/L Carbon Dioxide Level 22 21-32 MMOL/L Anion Gap 12 5-14 MMOL/L Blood Urea Nitrogen 6 L 7-18 MG/DL Creatinine 0.58 L 0.60-1.30 MG/DL Estimat Glomerular Filtration Rate > 60 BUN/Creatinine Ratio 10 Glucose Level 101 70-105 MG/DL Calcium Level 9.1 8.5-10.1 MG/DL Corrected Calcium 9.0 8.5-10.1 MG/DL Total Bilirubin 0.5 0.1-1.0 MG/DL Aspartate Amino Transf (AST/SGOT) 171 H 5-34 U/L Alanine Aminotransferase (ALT/SGPT) 316 H 0-55 U/L Alkaline Phosphatase 141 H 40-136 U/L Total Protein 7.1 6.4-8.2 GM/DL Albumin 4.1 3.2-4.5 GM/DL Lipase 9 8-78 U/L Serum Test, Qualitative POSITIVE NEGATIVE Urine Color ORANGE Urine Clarity SL CLOUDY Urine pH 7.0 5-9 Urine Specific [place] 1.025 H 1.016-1.022 Urine Protein TRACE H NEGATIVE Urine Glucose (UA) NEGATIVE NEGATIVE Urine Ketones NEGATIVE NEGATIVE Urine Nitrite NEGATIVE NEGATIVE Urine Bilirubin 1+ H NEGATIVE Urine Urobilinogen 1.0 < = 1.0 MG/DL Urine Leukocyte Esterase TRACE H NEGATIVE Urine RBC (Auto) NEGATIVE NEGATIVE Urine RBC NONE /HPF Urine WBC NONE /HPF Urine Squamous Epithelial Cells 10-25 H /HPF Urine Crystals NONE /LPF Urine Bacteria TRACE /HPF Urine Casts NONE /LPF Urine Mucus LARGE H /LPF Urine Culture Indicated NO My Orders Orders - OLESYA MORALES MD Cbc With Automated Diff (04/14/20 23:11) Comprehensive Metabolic Panel (04/14/20 23:11) Lipase (04/14/20 23:11) Hcg,Qualitative Serum (04/14/20 23:11) Ondansetron Injection (Zofran Injectio (04/14/20 23:15) Ns Iv 1000 Ml (Sodium Chloride 0.9%) (04/14/20 23:15) Ua Culture If Indicated (04/14/20 23:19) Rx-Hydrocodone/Apap 5-325 Mg (Rx-Vicodin (04/15/20 01:00) Medications Given in ED Current Medications Medications Dose Ordered Sig/Robert Route Start Time Stop Time Status Last Admin Dose Admin Ondansetron HCl 4 mg ONCE ONCE IVP 04/14/20 23:15 04/14/20 23:16 DC 04/14/20 23:18 4 MG Vital Signs/I&O 04/14/20 22:21 Temp 36.2 Pulse 87 Resp 18 B/P (MAP) 134/81 (98) Blood Pressure Mean: 98 Progress Progress Note : Time: 00:50 Progress Note Patient has elevated LFTs in the setting of right upper quadrant abdominal pain. She does not have fever or leukocytosis. At this point we will send the patient home with pain medications as she is feeling a little bit better after hydrocodone this evening. We will schedule her for a right upper quadrant gallbladder ultrasound tomorrow morning. Patient is given her order form and the number for radiology in order to come in and have the ultrasound done. She verbalizes understanding. She is given good return precautions she is agreeable with this plan of care. All questions are sought and answered. Patient is stable for discharge. Departure Impression Primary Impression: Abdominal pain Qualified Codes: R10.11 - Right upper quadrant pain Additional Impressions: Elevated LFTs Qualified Codes: Z3A.08 - 8 weeks gestation of Disposition: 01 HOME, SELF-CARE Condition: Stable Departure-Patient Inst. Decision time for Depature: 00:52 Referrals: [facility] [place] ([place]/Family) Primary Care Physician BRII LUCIANO MD Patient Instructions: Abdominal Pain, Adult ED Add. Discharge Instructions: Drink plenty of fluids to stay well-hydrated. Take [id number] Tylenol 2 extra strength tablets every 4-6 hours as needed for pain. I have given you a prescription for hydrocodone as well. You can take this for severe pain every 6 hours. Do not take extra Tylenol with the hydrocodone. I have given you an order for a gallbladder ultrasound. Please call in the morning between 7 and 730am [phone] and schedule your ultrasound for in the morning. Come back to the emergency department for worse pain especially with fever, persistent vomiting or other emergent concerning symptoms. Scripts Hydrocodone/Acetaminophen (Hydrocodone-Acetamin 5-325 mg) 1 Each Tablet 1 TAB PO Q6H PRN for PAIN-MODERATE (5-7), #10 TAB Prov: OLESYA MORALES MD 04/15/20 Copy Copies To 1: BRII LUCIANO MD, KATHRYN M MD Apr 15, 2020 00:50
[2020-04-15] MEDS ORDERED: ACHD5005 PO (00:56)
[2020-04-15 00:59] VITALS: BP 122/70
[2020-04-15] MEDS ORDERED: RX-HYDROCODONE/APAP 5/325 MG #4 TAB PK PO PRN (01:00)
== END 2020-04-15 01:00 | disposition home or self-care (01) ==
LOC: EDUNIT# 22:21 → ER 22:23
DX: O26.891 Other specified pregnancy related conditions, first trimester (principal); R10.11 Right upper quadrant pain; R94.5 Abnormal results of liver function studies; G89.29 Other chronic pain; M54.9 Dorsalgia, unspecified; Z3A.08 8 weeks gestation of pregnancy; Z82.49 Family history of ischemic heart disease and other diseases of the circulatory system; Z83.3 Family history of diabetes mellitus; Z77.22 Contact with and (suspected) exposure to environmental tobacco smoke (acute) (chronic); Z79.891 Long term (current) use of opiate analgesic
CPT/HCPCS: 36415; 80053; 81000; 83690; 84703; 85025

== ENCOUNTER → 2020-05-15 | Outpatient (CLI) | payer OTHER, MEDICAID ==
--- NOTE | 2020-05-15 15:55 | Diagnostic Imaging Report ---
EXAMINATION: US Abdomen limited. TECHNIQUE: Multiple real-time grayscale images were obtained over the right upper quadrant in various projections. HISTORY: Right upper quadrant pain, . COMPARISON: None available. FINDINGS: The liver is normal in size. The liver is normal in echogenicity. No focal lesions are seen. The portal vein is patent with hepatopedal flow. Gallbladder is normal without wall thickening or pericholecystic fluid. Sonographic Patricia sign is negative. Common duct measures 4 mm. There is no biliary ductal dilation. The visualized portions of the pancreas are normal. The right kidney is normal without hydronephrosis. IMPRESSION: 1. Unremarkable right upper quadrant ultrasound. Dictated by: Dictated on workstation # [id number]
== END ==
LOC: RAD 09:14
PROVIDERS: ATTEND Emergency Medicine
DX: Z33.1 Pregnant state, incidental (principal); R10.11 Right upper quadrant pain; R94.5 Abnormal results of liver function studies
CPT/HCPCS: 76705

== ENCOUNTER 2020-05-19 16:51 | Emergency (ER) | payer MEDICARE, MEDICAID ==
[~2020-05-19] VITALS: Ht 154.9 cm; Wt 84.3 kg
[2020-05-19 16:59] VITALS: BP 124/75
--- NOTE | 2020-05-19 17:06 | ED GU-Female ---
General Chief Complaint: - Urinary Stated Complaint: UTI SYMPTOMS Source: patient History of Present Illness Date Seen by Provider: May 19, 2020 Time Seen by Provider: 16:53 Initial Comments 24-year-old female presenting with complaints of burning and pain with urination. She has pain going into her right flank. She is approximately 14 weeks . She states that she was seen this morning at Dr. Ames's office and told she had a UTI but no antibiotics were prescribed that she is aware of and has not been called from the pharmacy of any prescriptions. She had felt worse this afternoon so she went to the urgent care clinic here in [place] and they told her that she also has a UTI according to her urinalysis. However because of her being , having nausea and vomiting, flank pain, and fast heart rate the referred her to the emergency department. Patient denies any fever or chills. She does get occasionally dizzy or lightheaded when she first stands up but states it does not last. She has been having issues with vomiting and keeping food and fluids down since even before her . In the last week that is been worse with her urinary tract infection. She does not have any medicine for nausea at home. She denies any vaginal bleeding or discharge. Timing/Duration: week, getting worse Severity/Quality: moderate, burning Location: suprapubic Radiation: suprapubic, right flank Activities at Onset: none Prior Genitourinary Problems: similar symptoms (History of multiple urine infections) Sexual Hulbert History: less than 2 months ago, single partner Associated Symptoms: No abdominal pain, No diaphoresis; dysuria; No fever/chills, No loss of bladder control, No lower back pain, No lumps, No mass; nausea/vomiting; No nocturia, No polyuria, No swelling, No syncope; urinary frequency Allergies and Home Medications Allergies Coded Allergies: No Known Drug Allergies (Unverified , 07/15/19) Home Medications Docusate Sodium 100 Mg Capsule, 100 MG PO BID Prescribed by: BRII BARR on 12/08/19 0854 Nitrofurantoin Macrocrystal 100 Mg Capsule, 100 MG PO BID Prescribed by: LUCIE ALVARES on 05/19/20 1742 Ondansetron 4 Mg Tab.rapdis, 4 MG PO Q6H PRN for NAUSEA/VOMITING Prescribed by: LUCIE ALVARES on 05/19/20 1742 Patient Home Medication List Home Medication List Reviewed: Yes Review of Systems Review of Systems Constitutional: see HPI EENTM: no symptoms reported Respiratory: no symptoms reported Cardiovascular: no symptoms reported Gastrointestinal: see HPI Genitourinary: see HPI : Yes Musculoskeletal: no symptoms reported Skin: no symptoms reported Psychiatric/Neurological: No Symptoms Reported Past Ofnhhxk-Zvjihn-Tusaxf Hx Past Med/Social Hx: Reviewed Nursing Past Med/Soc Hx Patient Social History Type Used: Cigarettes 2nd Hand Smoke Exposure: Yes Recent Hopitalizations: No Immunizations Up To Date Tetanus Booster (TDap): Less than 5yrs PED Vaccines UTD: Yes Seasonal Allergies Seasonal Allergies: No Past Medical History Surgeries: Yes (D & C 2018) Adenoidectomy, Tonsillectomy Respiratory: No Cardiac: No Hypertension Neurological: No Reproductive Disorders: Yes Female Reproductive Disorders: Denies Sexually Transmitted Disease: No HIV/AIDS: No Genitourinary: No UTI-Chronic Gastrointestinal: No Musculoskeletal: No Chronic Back Pain Endocrine: No HEENT: No Loss of Vision: Denies Hearing Impairment: Denies Cancer: No Psychosocial: Yes Depression Integumentary: No Blood Disorders: No Adverse Reaction/Blood Tranf: No Family Medical History Diabetes mellitus 19 FATHER Grandparents (Paternal Grandparents) Fibrocystic disease of breast Grandparents (Maternal Grandmother) Hypertension 19 FATHER 19 MOTHER Grandparents (Maternal Grandfather Paternal Grandparents) No Pertinent Family Hx Physical Exam Vital Signs Vital Signs - First Documented 05/19/20 16:59 Temp 36.6 Pulse 111 Resp 16 B/P (MAP) 124/75 (91) Pulse Ox 98 O2 Delivery Room Air Capillary Refill : Height, Weight, BMI Height: 5'1.00" Weight: 187lbs. 6.0oz. 84.063899jg; 35.00 BMI Method:Stated General Appearance: WD/WN, no apparent distress HEENT: PERRL/EOMI, pharynx normal Neck: non-tender, supple Cardiovascular: normal peripheral pulses, regular rate, rhythm (Heart rate at 95 to 100 bpm during physical exam after resting in the room) Respiratory: chest non-tender, lungs clear, normal breath sounds, no respiratory distress, no accessory muscle use Gastrointestinal: normal bowel sounds, soft, no pulsatile mass; No guarding, No rebound; tenderness (Mild tenderness over the suprapubic area) Back: No CVA tenderness (R), No CVA tenderness (L); other (Pain from the suprapubic area wrapping around the right flank) Extremities: normal range of motion, normal capillary refill 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 nml as tested, no motor/sensory deficits, alert, oriented x 3 Skin: normal color, warm/dry Progress/Results/Core Measures Suspected Sepsis SIRS Temperature: Pulse: Respiratory Rate: Blood Pressure / Mean: Results/Orders Lab Results Laboratory Tests Test 05/19/20 17:10 Range/Units Urine Color ORANGE Urine Clarity CLOUDY Urine pH 6.0 5-9 Urine Specific [place] >=1.030 1.016-1.022 Urine Protein 1+ H NEGATIVE Urine Glucose (UA) NEGATIVE NEGATIVE Urine Ketones TRACE H NEGATIVE Urine Nitrite POSITIVE H NEGATIVE Urine Bilirubin 3+ H NEGATIVE Urine Urobilinogen 4.0 < = 1.0 MG/DL Urine Leukocyte Esterase 1+ H NEGATIVE Urine RBC (Auto) 2+ H NEGATIVE Urine RBC 50-100 H /HPF Urine WBC 5-10 H /HPF Urine Squamous Epithelial Cells 10-25 H /HPF Urine Crystals NONE /LPF Urine Bacteria MODERATE H /HPF Urine Casts NONE /LPF Urine Mucus LARGE H /LPF Urine Culture Indicated YES My Orders Orders - LUCIE ALVARES MD Ua Culture If Indicated (05/19/20 16:56) Urine Culture (05/19/20 17:10) Ceftriaxone For Im Use (Rocephin For Im (05/19/20 17:35) Lidocaine 1% Inj 20 Ml (Xylocaine 1% Inj (05/19/20 17:45) Ondansetron Oral Dissolve Tab (Zofran (05/19/20 17:35) Medications Given in ED Current Medications Medications Dose Ordered Sig/Robert Route Start Time Stop Time Status Last Admin Dose Admin Lidocaine HCl 2.1 ml ONCE ONCE INJ 05/19/20 17:45 05/19/20 17:46 DC 05/19/20 17:44 2.1 ML Vital Signs/I&O 05/19/20 16:59 Temp 36.6 Pulse 111 Resp 16 B/P (MAP) 124/75 (91) Pulse Ox 98 O2 Delivery Room Air Capillary Refill : Progress Note : Progress Note Urinalysis does show recurrent signs of infection. Patient stated that she did not want to have an IV but was willing to get an IM shot of antibiotics. She felt like her symptoms were not bad enough to need IV medication and fluids. She was interested in trying nausea medicine along with antibiotics to treat her symptoms and urine infection. Counseled on follow-up and return precautions. heart tones 157 when found by the nurse Departure Impression Primary Impression: Acute cystitis during in first trimester Additional Impressions: Nausea and vomiting during prior to 22 weeks gestation Dehydration Disposition: 01 HOME, SELF-CARE Condition: Stable Departure-Patient Inst. Decision time for Depature: 17:42 Referrals: MAYA MURRIETA MD (PCP) Primary Care Physician [facility]/ (Family) Primary Care Physician BRII AMES MD Patient Instructions: Dehydration, Adult ED, Urinary Tract Infections in , Nausea and Vomiting of (DC) Add. Discharge Instructions: Try to drink more fluids and avoid carbonated or caffeinated drinks. Take the full course of antibiotics to treat for urine infection. Use the dissolving nausea medicine to help control your nausea so that you could eat and drink better. If you have worsening problems despite the medicine, fever over 101 F, or faint and pass out then seek medical care for further evaluation as you would need IVF and medications at that point Call Dr. Ames's clinic to arrange a follow up appointment sooner than June 19 to ensure that you are getting better from the urine infection and that you are tolerating taking things by mouth All discharge instructions reviewed with patient and/or family. Voiced understanding. Scripts Nitrofurantoin Macrocrystal (Nitrofurantoin) 100 Mg Capsule 100 MG PO BID for UTI for 7 Days, #14 CAP 0 Refills Prov: LUCIE ALVARES MD 05/19/20 Ondansetron (Ondansetron Odt) 4 Mg Tab.rapdis 4 MG PO Q6H PRN for NAUSEA/VOMITING for 7 Days, #28 TAB 0 Refills Prov: LUCIE ALVARES MD 05/19/20 Images Torso/Trunk 1 - Tenderness (Mild tenderness to palpation over the suprapubic area and radiation wrapping around her right flank) LUCIE ALVARES MD May 19, 2020 17:06
[2020-05-19 17:20] LABS: CLARITY,URINE CLOUDY; COLOR,URINE ORANGE; GLUCOSE, URINE (UA) NEGATIVE (NEGATIVE); KETONES,URINE TRACE (NEGATIVE); NITRITE,URINE POSITIVE (NEGATIVE); PROTEIN,URINE 1+ (NEGATIVE)
[2020-05-19 17:21] LABS: BACTERIA,URINE MODERATE /HPF; BILIRUBIN,URINE 3+ (NEGATIVE); LEUKOCYTE ESTERASE ,URINE 1+ (NEGATIVE); RBC,URINE 50-100 /HPF
[2020-05-19] MEDS ORDERED: cefTRIAXone 1,000 MG/2.86 ml vial (IM ONLY) IM STA (17:35)
[2020-05-19] MEDS ORDERED: ONDANSETRON 4 MG (ZOFRAN) ORAL DISSOLVE TAB PO STA (17:35)
[2020-05-19] MEDS ORDERED: NITR100C PO (17:42)
[2020-05-19] MEDS ORDERED: ONDA4TAB11 PO (17:42)
[2020-05-19] MEDS ORDERED: LIDOCAINE 1% INJ 20 ML 20 ML VIAL INJ ONE (17:45)
== END 2020-05-19 17:49 | disposition home or self-care (01) ==
LOC: EDUNIT# 16:51 → ER FS 16:53
DX: O23.12 Infections of bladder in pregnancy, second trimester (principal); O21.9 Vomiting of pregnancy, unspecified; O99.282 Endocrine, nutritional and metabolic diseases complicating pregnancy, second trimester; E86.0 Dehydration; Z77.22 Contact with and (suspected) exposure to environmental tobacco smoke (acute) (chronic); Z3A.14 14 weeks gestation of pregnancy
CPT/HCPCS: 81000; 87088; 99284

== ENCOUNTER 2020-08-27 19:51 | Outpatient (CLI) | payer MEDICARE, MEDICAID ==
[~2020-08-27] VITALS: Ht 154.9 cm; Wt 81.2 kg
[~2020-08-27 19:51] MED LIST changes: +NITR100C PO
[2020-08-27] MEDS ORDERED: FERR-84 PO (20:08)
[2020-08-27 20:10] VITALS: BP 112/57
[2020-08-27 20:17] VITALS: BP 112/57
[2020-08-27 20:19] LABS: BILIRUBIN,URINE NEGATIVE (NEGATIVE); CLARITY,URINE CLOUDY; COLOR,URINE YELLOW; GLUCOSE, URINE (UA) NEGATIVE (NEGATIVE); KETONES,URINE NEGATIVE (NEGATIVE); LEUKOCYTE ESTERASE ,URINE 1+ (NEGATIVE); NITRITE,URINE NEGATIVE (NEGATIVE); PROTEIN,URINE NEGATIVE (NEGATIVE)
[2020-08-27 20:22] VITALS: BP 112/57
[2020-08-27 20:27] LABS: AMORPHOUS SEDIMENT,UR MOD AMOR URATES /LPF; BACTERIA,URINE LARGE /HPF
[2020-08-27] MEDS ORDERED: LACTATED RINGERS 1,000 ML IV ONE (20:41)
[2020-08-27] MEDS ORDERED: LACTATED RINGERS 1,000 ML IV SCH (20:45)
[2020-08-27] MEDS ORDERED: cefTRIAXone 1,000 MG in WATER (STERILE) FOR INJECTION 10 ML IV ONE (20:45)
[2020-08-27 21:39] LABS: BASOPHILS % (AUTO) 0 % (0-10); EOSINOPHILS # (AUTO) 0.1 10^3/uL (0.0-0.3); EOSINOPHILS % (AUTO) 1 % (0-10); HEMATOCRIT 28 % (35-52); HEMOGLOBIN 8.7 g/dL (11.5-16.0); LYMPHOCYTES # (AUTO) 1.8 10^3/uL (1.0-4.0); LYMPHOCYTES % (AUTO) 17 % (12-44); MEAN CORPUSCULAR HEMOGLOBIN 22 pg (25-34); MEAN CORPUSCULAR HGB CONC 31 g/dL (32-36); MEAN CORPUSCULAR VOLUME 73 fL (80-99); MEAN PLATELET VOLUME 11.5 fL (9.0-12.2); MONOCYTES # (AUTO) 0.5 10^3/uL (0.0-1.0); MONOCYTES % (AUTO) 4 % (0-12); NEUTROPHILS # (AUTO) 8.2 10^3/uL (1.8-7.8); NEUTROPHILS % (AUTO) 75 % (42-75); PLATELET COUNT 231 10^3/uL (130-400); WHITE BLOOD COUNT 10.9 10^3/uL (4.3-11.0)
--- NOTE | 2020-08-28 08:08 | Physician Query-Final Dx ---
Clinic Account Progress/Dx Physician Query: Please give diagnosis Please include # weeks gestation Date of Service Aug 27, 2020 at 19:51 SHARA CAMARA Aug 28, 2020 08:08
== END 2020-08-27 22:00 ==
LOC: WSo 19:51 → LDRP 19:51 → WSo 22:00
PROVIDERS: ATTEND Family Medicine
DX: O26.90 Pregnancy related conditions, unspecified, unspecified trimester (principal); Z3A.00 Weeks of gestation of pregnancy not specified
CPT/HCPCS: 36415; 81000; 85025; 87088

== ENCOUNTER 2020-10-08 02:42 | Outpatient (CLI) | payer MEDICARE, MEDICAID ==
[~2020-10-08] VITALS: Ht 154.9 cm; Wt 81.2 kg
[2020-10-08 02:58] VITALS: BP 123/66
[2020-10-08 03:00] VITALS: BP 123/66
[2020-10-08 03:17] VITALS: BP 123/66
[2020-10-08] MEDS ORDERED: FAMOTIDINE 20 MG (PEPCID) TABLET ONE (03:29)
[2020-10-08] MEDS ORDERED: FAMOTIDINE 20 MG (PEPCID) TABLET PO ONE (03:30)
[2020-10-08 03:58] VITALS: BP 123/66
--- NOTE | 2020-10-09 10:19 | Physician Query-Final Dx ---
Clinic Account Progress/Dx Physician Query: Please give diagnosis Please include # weeks gestation Date of Service Oct 08, 2020 at 02:42 SHARA CAMARA Oct 09, 2020 10:19
== END 2020-10-08 03:50 | disposition home or self-care (01) ==
LOC: WSo 02:42 → LDRP 02:43 → WSo 03:50
PROVIDERS: ATTEND Family Medicine
DX: O21.8 Other vomiting complicating pregnancy (principal); Z3A.00 Weeks of gestation of pregnancy not specified
CPT/HCPCS: 99212

== ENCOUNTER 2020-10-30 01:43 | Outpatient (CLI) | payer MEDICARE, MEDICAID ==
[~2020-10-30] VITALS: Ht 154.9 cm; Wt 81.2 kg
[2020-10-30 01:59] VITALS: BP 132/86
[2020-10-30] MEDS ORDERED: PREN-142 PO (02:07)
[2020-10-30] MEDS ORDERED: FERR-84 PO (02:07)
[2020-10-30 02:32] LABS: BILIRUBIN,URINE NEGATIVE (NEGATIVE); CLARITY,URINE CLEAR; COLOR,URINE YELLOW; GLUCOSE, URINE (UA) NEGATIVE (NEGATIVE); KETONES,URINE NEGATIVE (NEGATIVE); LEUKOCYTE ESTERASE ,URINE 1+ (NEGATIVE); NITRITE,URINE NEGATIVE (NEGATIVE); PH,URINE 6.5 (5-9); PROTEIN,URINE NEGATIVE (NEGATIVE)
[2020-10-30 02:44] LABS: BACTERIA,URINE TRACE /HPF; WBC,URINE RARE /HPF
--- NOTE | 2020-10-31 08:04 | Physician Query-Final Dx ---
SHARA CAMARA 10/31/20 0804: Clinic Account Progress/Dx Physician Query: Please give diagnosis Please include # weeks gestation Date of Service Oct 30, 2020 at 01:43 CRISTA ORR MD 11/01/20 0907: Clinic Account Progress/Dx DIAGNOSIS: Diagnosis Term intrauterine 38 weeks gestation/third trimester Subjective contractions- rare on monitor SHARA CAMARA Oct 31, 2020 08:04 CRISTA ORR MD Nov 01, 2020 09:07
== END 2020-10-30 02:59 | disposition home or self-care (01) ==
LOC: WSo 01:43 → LDRP 01:43 → WSo 02:59
PROVIDERS: ATTEND Family Medicine
DX: O62.9 Abnormality of forces of labor, unspecified (principal); Z3A.38 38 weeks gestation of pregnancy
CPT/HCPCS: 81000

== ENCOUNTER 2020-10-31 11:44 | Outpatient (CLI) | payer MEDICARE, MEDICAID ==
[~2020-10-31] VITALS: Ht 154.9 cm; Wt 84.5 kg
[~2020-10-31 11:44] MED LIST changes: +PREN-142 PO
[2020-10-31] MEDS ORDERED: IRON SUCROSE 200 MG/10 ML (VENOFER) VIAL IV ONE (12:15)
[2020-10-31 13:50] VITALS: BP 118/76
== END 2020-10-31 13:50 | disposition home or self-care (01) ==
LOC: SDC 11:44
PROVIDERS: ATTEND Family Medicine
DX: O99.019 Anemia complicating pregnancy, unspecified trimester (principal); D64.9 Anemia, unspecified
CPT/HCPCS: 96365

== ENCOUNTER 2020-11-09 05:46 | Inpatient (IN) | payer MEDICARE, MEDICAID ==
[2020-11-09] VITALS (27 sets, daily range): BP systolic 110–168; BP diastolic 53–96
[~2020-11-09] VITALS: Ht 154.9 cm; Wt 82.5 kg
[2020-11-09] MEDS ORDERED: D5 LR IV SOLUTION 1,000 ML IV SCH (06:15)
[2020-11-09] MEDS ORDERED: LACTATED RINGERS 1,000 ML IV ONE (06:31)
[2020-11-09 06:44] LABS: BASOPHILS % (AUTO) 0 % (0-10); EOSINOPHILS # (AUTO) 0.2 10^3/uL (0.0-0.3); EOSINOPHILS % (AUTO) 1 % (0-10); HEMATOCRIT 33 % (35-52); LYMPHOCYTES % (AUTO) 17 % (12-44); MEAN CORPUSCULAR HEMOGLOBIN 22 pg (25-34); MEAN CORPUSCULAR HGB CONC 31 g/dL (32-36); MEAN CORPUSCULAR VOLUME 73 fL (80-99); MONOCYTES # (AUTO) 0.5 10^3/uL (0.0-1.0); MONOCYTES % (AUTO) 4 % (0-12); NEUTROPHILS # (AUTO) 8.6 10^3/uL (1.8-7.8); NEUTROPHILS % (AUTO) 77 % (42-75); PLATELET COUNT 216 10^3/uL (130-400); WHITE BLOOD COUNT 11.2 10^3/uL (4.3-11.0)
[2020-11-09] MEDS ORDERED: fentaNYL INJ 100 MCG/2 ML AMP ONE (07:37)
[2020-11-09] MEDS ORDERED: BUPIVACAINE 0.25% 30 ML (SENSORCAINE) VIAL ONE (07:37)
[2020-11-09 07:49] LABS: BILIRUBIN,URINE NEGATIVE (NEGATIVE); CLARITY,URINE SL CLOUDY; COLOR,URINE DARK YELLOW; GLUCOSE, URINE (UA) NEGATIVE (NEGATIVE); KETONES,URINE NEGATIVE (NEGATIVE); LEUKOCYTE ESTERASE ,URINE NEGATIVE (NEGATIVE); NITRITE,URINE NEGATIVE (NEGATIVE); PH,URINE 6.5 (5-9); PROTEIN,URINE NEGATIVE (NEGATIVE)
[2020-11-09 08:03] LABS: BACTERIA,URINE TRACE /HPF; SQUAMOUS EPITHELIAL CELL,UR RARE /HPF
[2020-11-09 08:04] LABS: AMORPHOUS SEDIMENT,UR FEW AMOR URATES /LPF
[2020-11-09] MEDS ORDERED: fentaNYL 2 mcg/ml BUPIVA 0.125 0 ML ONE (08:09)
[2020-11-09] MEDS ORDERED: OXYTOCIN PRE-MIX DRIP 500 ML IV ONE (08:45)
[2020-11-09] MEDS ORDERED: LIDOCAINE/EPI 2% 1:200,00 (XYLOCAINE) 20 ML VIAL ONE (08:46)
--- NOTE | 2020-11-09 09:13 | OB Labor & Delivery Record ---
Vag Delivery Note Vag Delivery Note Date of Delivery: 11/09/20 Preoperative Diagnosis: Erum Poon is a (24 /Para 5 / 1, Gestational Age (wks)39.4 here after SROM at home this AM Postoperative Diagnosis: Same Surgeon: WILLIE NEWELL Gerontology Aide: None Anesthesia: Epidural Delivery Type: @ 39.2 Findings: Viable Female infant, apgars 9/9, weight 6#8, 2948Laboratory Tests 11/09/20 06:20 Lacerations: 2nd degree laceration Intact placenta with 3 vessel cord. No nuchal cord, body cord or shoulder dystocia Estimated Blood Loss: 120 ml Complications: None Condition: Stable Description of Procedure: The patient is a 24 year old female who presented in active labor after SROM at home of clear fluid around 5 AM. She was admitted and informed consent was obtained. Her labor course was unremarkable. She progressed to complete dilatation and began to push. She was then set up for delivery. The infant's head was delivered atraumatically in the CASH position. The shoulders and remainder of the infant's body were then delivered without difficulty. Upon delivery, the head was held below the level of the perineum and the mouth and nares were bulb suctioned. The cord was doubly clamped after 2 min delay and cut and the was attended to by the pediatric staff on maternal abdomen. An intact placenta with 3-vessel cord delivered via Mayte and there was found to be minimal bleeding.~ Vigorous fundal massage was performed and the fundus was found to be firm. IV oxytocin was given. Examination of the vagina and perineum revealed a 2nd degree laceration repaired in the usual fashion with 3-0 vicryl suture. Following the repair, sponge, instrument and needle counts were correct. Mom and baby were both in stable condition in the labor suite. Vitals - Labs Vital Signs - I&O Vital Signs Date Time Temp Pulse Resp B/P (MAP) Pulse Ox O2 Delivery O2 Flow Rate FiO2 11/09/20 06:42 36.3 78 20 97 Room Air 11/09/20 06:41 36.3 78 18 97 Room Air 11/09/20 06:30 36.3 78 18 129/78 (95) 97 Room Air Labs Laboratory Tests 11/09/20 06:20: White Blood Count 11.2H, Red Blood Count 4.46, Hemoglobin 10.0L, Hematocrit 33L, Mean Corpuscular Volume 73L, Mean Corpuscular Hemoglobin 22L, Mean Corpuscular Hemoglobin Concent 31L, Red Cell Distribution Width 20.3H, Platelet Count 216, Mean Platelet Volume , Immature Granulocyte % (Auto) 0, Neutrophils (%) (Auto) 77H, Lymphocytes (%) (Auto) 17, Monocytes (%) (Auto) 4, Eosinophils (%) (Auto) 1, Basophils (%) (Auto) 0, Neutrophils # (Auto) 8.6H, Lymphocytes # (Auto) 2.0, Monocytes # (Auto) 0.5, Eosinophils # (Auto) 0.2, Basophils # (Auto) 0.0, Immature Granulocyte # (Auto) 0.0 11/09/20 06:30: Urine Color DARK YELLOW, Urine Clarity SL CLOUDY, Urine pH 6.5, Urine Specific [place] 1.015L, Urine Protein NEGATIVE, Urine Glucose (UA) NEGATIVE, Urine Ketones NEGATIVE, Urine Nitrite NEGATIVE, Urine Bilirubin NEGATIVE, Urine Urobi linogen 0.2, Urine Leukocyte Esterase NEGATIVE, Urine RBC (Auto) NEGATIVE, Urine RBC NONE, Urine WBC NONE, Urine Squamous Epithelial Cells RARE, Urine Crystals PRESENTH, Urine Amorphous Sediment FEW VIDA URATESH, Urine Bacteria TRACE, Urine Casts NONE, Urine Mucus NEGATIVE, Urine Culture Indicated NO WILLIE NEWELL MD Nov 09, 2020 09:13
--- NOTE | 2020-11-09 09:13 | History & Physical-OB ---
OB - Chief Complaint & HPI Date/Time Date of Admission: Date of Admission: Nov 09, 2020 at 05:56 Date seen by a Provider: Nov 09, 2020 Time Seen by a Provider: 07:55 Chief Complaint/History OB-Reason for Admission/Chief: Rupture of Membranes Hx : 5 Hx Para: 1 Expected Date of Delivery: Nov 13, 2020 Gestational Age in Weeks: 39 Gestational Age in Days: 3 History of Labs O neg, Rub Imm, RPR NR Normal 1 hr GTT GBS neg Allergies and Home Medications Allergies Coded Allergies: No Known Drug Allergies (Unverified , 07/15/19) Patient Home Medication List Home Medication List Reviewed: Yes Ferrous Sulfate (Iron) 325 Mg Tablet, 325 MG PO BID, (Reported) Entered as Reported by: ROMEL GUTIERREZ on 10/30/20206 Vit No.124/Iron/FA ( Vitamin Tablet) 1 Each Tablet, 1 EACH PO DAILY, (Reported) Entered as Reported by: ROMEL GUTIERREZ on 10/30/20206 OB - History Hx of Present Care: Yes Ultrasounds: No ultrasounds Obstetrical Complications: None Medical Complications: None Obstetrical History Hx : 5 Hx Para: 1 Hx # Term Pregnancies: 1 Number of Living Children: 1 Hx Total # of Abortions (Spona: 3 Delivery History Hx Blood Disorders: No Adverse Rxn to Tranfusion: No Patient Past Medical History N/A Social History/Family History Alcohol Use: Denies Use Recreational Drug Use: No 2nd Hand Smoke Exposure: Yes Immunizations Tetanus Booster (TDap): Less than 5yrs OB - Admission Exam Physical Exam Vitals: Vital Signs 11/09/20 11/09/20 06:30 06:42 Temp 36.3 Pulse 78 Resp 20 B/P (MAP) 129/78 (95) Pulse Ox 97 O2 Delivery Room Air HEENT: NCAT Heart: Rhythm Normal Lungs: Clear Abdomen: Gravid Cervical Dilatation: 6cm Effacement: 75% Station: 0 Membranes: Ruptured Amniotic Fluid: Clear Heart Rate: 140's Accelerations: Accelerations Present Decelerations: No Decelerations Short Term Variability: Present Health Information Tech Variability: Average (6-25) Labs Laboratory Tests Test 11/09/20 06:20 11/09/20 06:30 Range/Units White Blood Count 11.2 H 4.3-11.0 10^3/uL Red Blood Count 4.46 3.80-5.11 10^6/uL Hemoglobin 10.0 L 11.5-16.0 g/dL Hematocrit 33 L 35-52 % Mean Corpuscular Volume 73 L 80-99 fL Mean Corpuscular Hemoglobin 22 L 25-34 pg Mean Corpuscular Hemoglobin Concent 31 L 32-36 g/dL Red Cell Distribution Width 20.3 H 10.0-14.5 % Platelet Count 216 130-400 10^3/uL Mean Platelet Volume 9.0-12.2 fL Immature Granulocyte % (Auto) 0 % Neutrophils (%) (Auto) 77 H 42-75 % Lymphocytes (%) (Auto) 17 12-44 % Monocytes (%) (Auto) 4 0-12 % Eosinophils (%) (Auto) 1 0-10 % Basophils (%) (Auto) 0 0-10 % Neutrophils # (Auto) 8.6 H 1.8-7.8 10^3/uL Lymphocytes # (Auto) 2.0 1.0-4.0 10^3/uL Monocytes # (Auto) 0.5 0.0-1.0 10^3/uL Eosinophils # (Auto) 0.2 0.0-0.3 10^3/uL Basophils # (Auto) 0.0 0.0-0.1 10^3/uL Immature Granulocyte # (Auto) 0.0 0.0-0.1 10^3/uL Urine Color DARK YELLOW Urine Clarity SL CLOUDY Urine pH 6.5 5-9 Urine Specific Dale 1.015 L 1.016-1.022 Urine Protein NEGATIVE NEGATIVE Urine Glucose (UA) NEGATIVE NEGATIVE Urine Ketones NEGATIVE NEGATIVE Urine Nitrite NEGATIVE NEGATIVE Urine Bilirubin NEGATIVE NEGATIVE Urine Urobilinogen 0.2 < = 1.0 MG/DL Urine Leukocyte Esterase NEGATIVE NEGATIVE Urine RBC (Auto) NEGATIVE NEGATIVE Urine RBC NONE /HPF Urine WBC NONE /HPF Urine Squamous Epithelial Cells RARE /HPF Urine Crystals PRESENT H /LPF Urine Amorphous Sediment FEW VIDA URATES H /LPF Urine Bacteria TRACE /HPF Urine Casts NONE /LPF Urine Mucus NEGATIVE /LPF Urine Culture Indicated NO OB - Assessment/Plan/Diagnosis Assessment Assessment: active labor Admission Dx Term 39 weed gestation SROM Admission Status: Inpatient Order (span 2 midnights) Reason for Inpatient Admission: labor Plan Other Plan 24 yo @ 39.4 wga Plan - Expect vaginal delivty - GBS neg WILLIE NEWELL MD Nov 09, 2020 09:13
[2020-11-09] MEDS ORDERED: TETANUS,DIPTH,PERTUSS P/F (BOOSTRIX) 0.5 ML VIAL IM ONE (09:30)
[2020-11-09] MEDS ORDERED: BENZOCAINE/MENTHOL (DERMOPLAST) 56 ML CAN TP PRN (09:30)
[2020-11-09] MEDS ORDERED: MEASLES,MUMPS,RUBELLA 1 EA INJ SQ ONE (09:30)
[2020-11-09] MEDS ORDERED: WITCH HAZEL(TUCKS) 40 EA JAR TOP PRN (09:30)
[2020-11-09] MEDS ORDERED: OXYTOCIN PRE-MIX DRIP 500 ML IV SCH (09:30)
[2020-11-09] MEDS ORDERED: CATHETER FLUSH 10 ML SYR IV SCH ×2 (14:00)
[2020-11-09] MEDS: IBUPROFEN 600 MG (MOTRIN) TAB PO SCH (18:07)
[2020-11-09] MEDS: ACETAMINOPHEN 500 MG TAB (TYLENOL) PO SCH (19:49)
[2020-11-09] MEDS: DOCUSATE SODIUM 100 MG (COLACE) CAP PO SCH (19:49)
[2020-11-10 00:10] VITALS: BP 128/75
[2020-11-10] MEDS: ACETAMINOPHEN 500 MG TAB (TYLENOL) PO SCH ×4 (02:07→22:07)
[2020-11-10] MEDS: IBUPROFEN 600 MG (MOTRIN) TAB PO SCH ×4 (02:07→22:08)
[2020-11-10 04:15] VITALS: BP 107/57
[2020-11-10 05:51] LABS: BASOPHILS % (AUTO) 1 % (0-10); EOSINOPHILS # (AUTO) 0.1 10^3/uL (0.0-0.3); EOSINOPHILS % (AUTO) 2 % (0-10); HEMATOCRIT 27 % (35-52); HEMOGLOBIN 8.1 g/dL (11.5-16.0); LYMPHOCYTES # (AUTO) 2.1 10^3/uL (1.0-4.0); LYMPHOCYTES % (AUTO) 26 % (12-44); MEAN CORPUSCULAR HEMOGLOBIN 22 pg (25-34); MEAN CORPUSCULAR HGB CONC 30 g/dL (32-36); MEAN CORPUSCULAR VOLUME 74 fL (80-99); MONOCYTES # (AUTO) 0.4 10^3/uL (0.0-1.0); MONOCYTES % (AUTO) 5 % (0-12); NEUTROPHILS # (AUTO) 5.3 10^3/uL (1.8-7.8); NEUTROPHILS % (AUTO) 67 % (42-75); PLATELET COUNT 165 10^3/uL (130-400); WHITE BLOOD COUNT 7.9 10^3/uL (4.3-11.0)
[2020-11-10 08:30] VITALS: BP 138/76
[2020-11-10] MEDS: DOCUSATE SODIUM 100 MG (COLACE) CAP PO SCH ×2 (08:36→22:07)
--- NOTE | 2020-11-10 10:11 | Anesthesia-Regional Post-Op ---
Regional Patient Condition Mental Status: Alert, Oriented x3 Circulation: Same as Pre-Op Headache: Absent Sensation: Full Recovery Motor Block: Absent Post Op Complications Complications None Follow Up Care/Instructions Patient Instructions None needed. Anesthesia/Patient Condition Patient is doing well, no complaints, stable vital signs, no apparent adverse anesthesia problems. No complications reported per nursing. D/C home per [facility] [place] Criteria: DESEAN Hernández CRNA Nov 10, 2020 10:10
--- NOTE | 2020-11-10 12:56 | Postpartum Progress Note ---
Note Note Day # 1 Subjective: Patient is without complaints. Ambulating, voiding. Tolerating a regular diet without nausea or vomiting. Normal lochia. Pain is well controlled with oral pain medications. Bottle feeding. Objective: Physical Exam: General - Alert and oriented, no apparent distress Abdomen - Soft, appropriately tender to palpation, non-distended, fundus firm at umbilicus Extremities - no edema, negative Jean Claude's bilaterally Assessment: 24 yo G5 now P2 post- day # 1, status post spontaneous vaginal delivery at term. Recovering well, hemodynamically stable Plan: Routine care. Encourage breast feeding but patient desires to bottle fee Encourage ambulation. Plan for discharge tomorrow with 6 week f.u with [facility] Vitals - Labs Vital Signs - I&O Vital Signs Date Time Temp Pulse Resp B/P (MAP) Pulse Ox O2 Delivery O2 Flow Rate FiO2 11/10/20 08:30 36.4 66 16 138/76 (96) 99 Room Air 11/10/20 04:15 36.5 68 16 107/57 (74) 97 Room Air 11/10/20 00:10 36.7 65 18 128/75 (92) 99 Room Air 11/09/20 19:50 36.7 70 18 115/56 (75) 99 Room Air 11/09/20 15:40 36.2 72 20 112/59 (76) Room Air Labs Laboratory Tests 11/10/20 05:31: White Blood Count 7.9, Red Blood Count 3.65L, Hemoglobin 8.1L, Hematocrit 27L, Mean Corpuscular Volume 74L, Mean Corpuscular Hemoglobin 22L, Mean Corpuscular Hemoglobin Concent 30L, Red Cell Distribution Width 19.9H, Platelet Count 165, Mean Platelet Volume 13.0H, Immature Granulocyte % (Auto) 1, Neutrophils (%) (Auto) 67, Lymphocytes (%) (Auto) 26, Monocytes (%) (Auto) 5, Eosinophils (%) (Auto) 2, Basophils (%) (Auto) 1, Neutrophils # (Auto) 5.3, Lymphocytes # (Auto) 2.1, Monocytes # (Auto) 0.4, Eosinophils # (Auto) 0.1, Basophils # (Auto) 0.0, Immature Granulocyte # (Auto) 0.1 WILLIE NEWELL MD Nov 10, 2020 12:55
[2020-11-10 14:00] VITALS: BP 105/55
[2020-11-10 19:33] VITALS: BP 139/84
[2020-11-11 02:00] VITALS: BP 114/64
[2020-11-11] MEDS: IBUPROFEN 600 MG (MOTRIN) TAB PO SCH (04:10)
[2020-11-11] MEDS: ACETAMINOPHEN 500 MG TAB (TYLENOL) PO SCH (04:10)
--- NOTE | 2020-11-11 07:39 | Discharge Summary ---
Diagnosis/Chief Complaint Date of Admission Nov 09, 2020 at 05:56 Date of Discharge November 11, 2020 Admission Diagnosis Admission Diagnosis 1. Intrauterine at 39 weeks 2 days 2. Anemia iron deficiency during Discharge Diagnosis 1. Intrauterine at 39 weeks 2 days 2. Anemia iron deficiency during Chief Complaint/HPI Chief Complaint/HPI 24-year-old 2 now term 2 who initially presented to labor and delivery on November 09, 2020 with ruptured membranes. She was noted to be at 39 weeks 2 days gestation. Her care was essentially uncomplicated and she was followed at [facility] by Dr. Gilbert. Discharge Summary-OBS Procedures 1. Spontaneous vaginal delivery 2. Repair of second-degree perineal laceration Discharge Physical Examination Allergies: Coded Allergies: No Known Drug Allergies (Unverified , 07/15/19) Vitals & I&Os Vital Sign - Last 12Hours Date Time Temp Pulse Resp B/P (MAP) Pulse Ox O2 Delivery O2 Flow Rate FiO2 11/11/20 02:00 36.8 66 18 114/64 (81) 100 Room Air General Appearance: Alert Respiratory: Clear to Auscultation Cardiovascular: Regular Rate Abdominal: Soft (with uterus firm) Hospital Course following admission she underwent labor course and quickly went on to completion. She delivered over a second-degree perineal laceration a term viable female. Infant weight was noted to be at 6 lbs. 8 oz. Following delivery she underwent routine care orders. She was noted to have no complications during the remainder of hospital stay. Her hemoglobin in the morning of November 10, 2020 was 8.1. She was noted to be ambulatory and did not complain of chest pain or shortness of breath. She had tolerated a regular diet and felt ready for dismissal on the morning of November 11, 2020. Discharge Instructions to patient/family Please see electronic discharge instructions given to patient. Discharge Medications Reviewed and agree with Discharge Medication list on patient's Discharge Inst ruction sheet IRIS WOOTEN MD Nov 11, 2020 07:39
[2020-11-11] MEDS ORDERED: IBUP-844 PO (07:40)
--- NOTE | 2020-11-11 07:41 | Discharge Inst-Women's Service ---
Discharge Inst-Women's Serv Depart Medication/Instructions New, Converted or Re-Newed RX: Transmitted to Pharmacy ([facility] in [place]) Problems Reviewed?: Yes Consults/Follow Up Additional Follow Up: Yes (with Dr. Gilbert in 6 weeks) Activity Driving Instructions: No Driving for 1 Week Nothing Inside Vagina: No [place] (for 6 weeks) Diet Discharge Diet: Regular Diet Return to The Hospital For: as below Symptoms to Report to : Bleeding Excessive, Pain Increased, Fever Over 101 Degrees F, Vaginal Discharge Foul For Any Problems or Questions: Contact Your Physician IRIS WOOTEN MD Nov 11, 2020 07:41
[2020-11-11 08:00] VITALS: BP 130/84
[2020-11-11] MEDS: DOCUSATE SODIUM 100 MG (COLACE) CAP PO SCH (08:03)
== END 2020-11-11 09:40 | disposition home or self-care (01) | DRG 807 ==
LOC: WSo 05:46 → LDRP 05:47 → WSo 05:56 → LDRP 05:56
PROVIDERS: ADMIT Family Medicine; ATTEND Family Medicine
PROC: 10E0XZZ Delivery of Products of Conception, External Approach (ICD-10-PCS; principal; 2020-11-09)
PROC: 0KQM0ZZ Repair Perineum Muscle, Open Approach (ICD-10-PCS; 2020-11-09)
DX: O99.334 Smoking (tobacco) complicating childbirth (principal); Z37.0 Single live birth; F17.210 Nicotine dependence, cigarettes, uncomplicated; O70.1 Second degree perineal laceration during delivery; Z3A.39 39 weeks gestation of pregnancy; O99.03 Anemia complicating the puerperium; D50.9 Iron deficiency anemia, unspecified
CPT/HCPCS: 36415; 81000; 83033; 85025; 86780; 86850; 86900; 86901; 99212

== ENCOUNTER 2020-12-13 23:58 | Emergency (ER) | payer MEDICARE, MEDICAID ==
[~2020-12-13] VITALS: Ht 155 cm; Wt 75.0 kg
[~2020-12-13 23:58] MED LIST changes: +IBUP-844 PO
--- NOTE | 2020-12-14 00:32 | ED GU-Female ---
General Chief Complaint: - Reproductive Stated Complaint: BLOOD CLOTTS IN URINE Source: patient, family ((significant other)) Exam Limitations: no limitations History of Present Illness Date Seen by Provider: Dec 14, 2020 Time Seen by Provider: 00:20 Initial Comments Patient is a 24-year-old female who presents to the emergency department today with a chief complaint of vaginal bleeding. Patient is postop delivery of an infant on November 09. She states she bled every day until about 3 days ago when she stopped and then she restarted again today. Patient states she was going to the bathroom and wiped and thinks she might have pulled one of her stitches out. She did see Dr. Gilbert at [facility] yesterday and was prescribed some hormone therapy. She states she is taken 2 doses at this point. She denies any fevers, chills, cough or congestion. No abdominal pain but a little bit of "cramping". No diarrhea. A little "stinging" when she urinates but no actual pain with urination or increased frequency or hesitancy. No abnormal vaginal discharge. She tells me that Dr. Gilbert told her that she could use tampons at this point post delivery. So she has one in. All other review of systems reviewed and negative except as stated. Timing/Duration: yesterday Severity/Quality: moderate Location: suprapubic (cramping "a little") Associated Symptoms: denies symptoms Allergies and Home Medications Allergies Coded Allergies: No Known Drug Allergies (Unverified , 07/15/19) Patient Home Medication List Home Medication List Reviewed: Yes Ferrous Sulfate (Iron) 325 Mg Tablet, 325 MG PO BID, (Reported) Entered as Reported by: ROMEL GUTIERREZ on 10/30/20206 Ibuprofen (Ibu) 600 Mg Tablet, 600 MG PO Q6HR Prescribed by: IRIS WOOTEN on 11/11/20 0740 Vit No.124/Iron/FA ( Vitamin Tablet) 1 Each Tablet, 1 EACH PO DAILY, (Reported) Entered as Reported by: ROMEL GUTIERREZ on 10/30/20206 Review of Systems Review of Systems Constitutional: see HPI EENTM: no symptoms reported Respiratory: no symptoms reported Cardiovascular: no symptoms reported Gastrointestinal: no symptoms reported Genitourinary: other (vaginal bleeding and "stinging") : No Musculoskeletal: no symptoms reported Skin: no symptoms reported All Other Systemes Reviewed Negative Unless Noted: Yes Past Yztujez-Rbnfqu-Knwchw Hx Immunizations Up To Date Tetanus Booster (TDap): Less than 5yrs PED Vaccines UTD: Yes Seasonal Allergies Seasonal Allergies: No Past Medical History Surgeries: Yes (D & C 2019) Adenoidectomy, Tonsillectomy Respiratory: No Cardiac: No Hypertension Neurological: No Reproductive Disorders: Yes Female Reproductive Disorders: Denies Sexually Transmitted Disease: No HIV/AIDS: No Genitourinary: No UTI-Chronic Gastrointestinal: No Musculoskeletal: No Chronic Back Pain Endocrine: No HEENT: No Loss of Vision: Denies Hearing Impairment: Denies Cancer: No Psychosocial: Yes Depression Integumentary: No Blood Disorders: No Adverse Reaction/Blood Tranf: No Family Medical History Diabetes mellitus 19 FATHER Grandparents (Paternal Grandparents) Fibrocystic disease of breast Grandparents (Maternal Grandmother) Hypertension 19 FATHER 19 MOTHER Grandparents (Maternal Grandfather Paternal Grandparents) No Pertinent Family Hx Physical Exam Vital Signs Vital Signs - First Documented 12/14/20 00:06 Temp 36.2 Pulse 80 Resp 18 B/P (MAP) 139/94 (109) Pulse Ox 99 O2 Delivery Room Air Capillary Refill : Height, Weight, BMI Height: 5'1.00" Weight: 187lbs. 6.0oz. 84.087750dw; 34.38 BMI Method:Stated General Appearance: WD/WN, no apparent distress Neck: normal inspection Cardiovascular: regular rate, rhythm Respiratory: lungs clear, normal breath sounds, no respiratory distress, no accessory muscle use Gastrointestinal: normal bowel sounds, non tender, soft Pelvic: normal external exam, other (I did not see any external stitches at all. She had a tampon in place - significant bleeding noted, the strin was not red with blood (she states shes been changing it every hour and the last one placed was prior to coming to the emergency department). Speculum examination was not done; bimanual exam was not done) Extremities: normal range of motion, non-tender, normal inspection, no pedal edema Neurologic/Psychiatric: alert, normal mood/affect, oriented x 3 Skin: normal color, warm/dry Progress/Results/Core Measures Suspected Sepsis SIRS Temperature: Pulse: Respiratory Rate: Blood Pressure / Mean: Results/Orders Vital Signs/I&O 12/14/20 00:06 Temp 36.2 Pulse 80 Resp 18 B/P (MAP) 139/94 (109) Pulse Ox 99 O2 Delivery Room Air Capillary Refill : Progress Note : Time: 01:04 Progress Note I advised the patient to be careful changing out her tampons - she states she is just using "light" tampons. Gave good return precautions. Told her to "pat to dry" after urinating. Departure Impression Primary Impression: hemorrhage of vagina Disposition: HOME, SELF-CARE Condition: Stable Departure-Patient Inst. Decision time for Depature: 00:32 Referrals: [facility] (PCP/Family) Primary Care Physician WILLIE GILBERT MD Patient Instructions: Hemorrhage Add. Discharge Instructions: Come back to the ER if you have any passing out spells or fever with heavy vaginal bleeding. Come back if you have burning with urination with fever. Follow up with Dr Gilbert. Drink plenty of fluids to stay well hydrated. Continue taking your vitamins and the hormone pills Dr Gilbert prescribed for you. Copy Copies To 1: WILLIE GILBERT MD, KATHRYN M MD Dec 14, 2020 00:32
[2020-12-14 01:12] VITALS: BP 121/75
== END 2020-12-14 01:12 | disposition home or self-care (01) ==
LOC: EDUNIT# 23:58 → ER 12-14 00:01
DX: O72.1 Other immediate postpartum hemorrhage (principal); I10 Essential (primary) hypertension
CPT/HCPCS: 99284

== ENCOUNTER 2021-01-06 14:24 | Emergency (ER) | payer MEDICARE, MEDICAID ==
[~2021-01-06] VITALS: Ht 162.6 cm; Wt 75.7 kg
[2021-01-06 14:55] VITALS: BP 119/75
--- NOTE | 2021-01-06 15:12 | ED Abdominal Pain ---
General Chief Complaint: Abdominal/GI Problems Stated Complaint: STOMACH PAIN Nursing Triage Note: Pt arrives via POV from home with c/o ABD pain; onset yesterday. Pt states "I just want to make sure I'm not ." Pt also stating "I need a blood test because the urine tests don't work for me." Source of Information: Patient Exam Limitations: No Limitations (MINAL HAMMER APRN) History of Present Illness Date Seen by Provider: Jan 06, 2021 Time Seen by Provider: 15:11 Initial Comments To ER with upper midline abdominal pain onset last night no nausea no vomiting no diarrhea no dysuria. She states she has frequent urinary tract infections and it may be that but she also states she might be . Timing/Duration: 1-2 Days Severity/Quality: Moderate Location: Epigastric Radiation: No Radiation Activities at Onset: None (MINAL HAMMER APRN) Allergies and Home Medications Allergies Coded Allergies: No Known Drug Allergies (Unverified , 07/15/19) Patient Home Medication List Home Medication List Reviewed: Yes (MINAL HAMMER APRN) Ferrous Sulfate (Iron) 325 Mg Tablet, 325 MG PO BID, (Reported) Entered as Reported by: ROMEL GUTIERREZ on 10/30/20 020 Ibuprofen (Ibu) 600 Mg Tablet, 600 MG PO Q6HR Prescribed by: IRIS WOOTEN on 11/11/20 0740 Vit No.124/Iron/FA ( Vitamin Tablet) 1 Each Tablet, 1 EACH PO DAILY, (Reported) Entered as Reported by: ROMEL GUTIERREZ on 10/30/20 0207 Review of Systems Review of Systems Constitutional: see HPI EENTM: No Symptoms Reported Respiratory: No Symptoms Reported Cardiovascular: No Symptoms Reported Gastrointestinal: See HPI, Abdominal Pain; Denies Constipated, Denies Diarrhea, Denies Nausea Genitourinary: No Symptoms Reported Musculoskeletal: no symptoms reported Skin: no symptoms reported Psychiatric/Neurological: No Symptoms Reported Endocrine: No Symptoms Reported Hematologic/Lymphatic: No Symptoms Reported (MINAL HAMMER APRN) Past Ygzxylf-Vphika-Bcocfk Hx Patient Social History Tobacco Use?: Yes Tobacco type used: Cigarettes Smoking Status: Current Everyday Smoker Use of E-Cig and/or Vaping dev: No Substance use?: No Alcohol Use?: No Pt feels they are or have been: No (MINAL HAMMER APRN) Immunizations Up To Date Tetanus Booster (TDap): Less than 5yrs PED Vaccines UTD: Yes Influenza Vaccine Up-to-Date: No; Not Current First/Initial COVID19 Vaccinat: N/A (MINAL HAMMER APRN) Seasonal Allergies Seasonal Allergies: No (MINAL HAMMER APRN) Past Medical History Surgeries: Yes (D & C 2019) Adenoidectomy, Tonsillectomy Respiratory: No Cardiac: No Hypertension Neurological: No Reproductive Disorders: Yes Female Reproductive Disorders: Denies Sexually Transmitted Disease: No HIV/AIDS: No Genitourinary: No UTI-Chronic Gastrointestinal: No Musculoskeletal: No Chronic Back Pain Endocrine: No HEENT: No Loss of Vision: Denies Hearing Impairment: Denies Cancer: No Psychosocial: Yes Depression Integumentary: No Blood Disorders: No Adverse Reaction/Blood Tranf: No (MINAL HAMMER APRN) Family Medical History Diabetes mellitus 19 FATHER Grandparents (Paternal Grandparents) Fibrocystic disease of breast Grandparents (Maternal Grandmother) Hypertension 19 FATHER 19 MOTHER Grandparents (Maternal Grandfather Paternal Grandparents) No Pertinent Family Hx (MINAL HAMMER APRN) Physical Exam Vital Signs Vital Signs - First Documented 01/06/21 14:55 Temp 36.6 Pulse 87 Resp 18 B/P (MAP) 119/75 (90) Pulse Ox 98 O2 Delivery Room Air (LOKESH ALMONTE MD) Vital Signs Capillary Refill : Less Than 3 Seconds (MINAL HAMMER APRN) Height/Weight/BMI Height: 5'1.00" Weight: 187lbs. 6.0oz. 84.316559lp; 28.00 BMI Method:Stated General Appearance: WD/WN, no apparent distress HEENT: PERRL/EOMI Respiratory: no respiratory distress, no accessory muscle use Gastrointestinal: normal bowel sounds, non tender, soft Extremities: normal range of motion, non-tender Neurologic/Psychiatric: alert, normal mood/affect, oriented x 3 Skin: normal color, warm/dry (MINAL HAMMER APRN) Progress/Results/Core Measures Results/Orders Lab Results Laboratory Tests Test 01/06/21 15:17 Range/Units White Blood Count 7.8 4.3-11.0 10^3/uL Red Blood Count 4.63 3.80-5.11 10^6/uL Hemoglobin 10.4 L 11.5-16.0 g/dL Hematocrit 35 35-52 % Mean Corpuscular Volume 75 L 80-99 fL Mean Corpuscular Hemoglobin 23 L 25-34 pg Mean Corpuscular Hemoglobin Concent 30 L 32-36 g/dL Red Cell Distribution Width 17.2 H 10.0-14.5 % Platelet Count 301 130-400 10^3/uL Mean Platelet Volume 11.7 9.0-12.2 fL Immature Granulocyte % (Auto) 0 % Neutrophils (%) (Auto) 70 42-75 % Lymphocytes (%) (Auto) 22 12-44 % Monocytes (%) (Auto) 4 0-12 % Eosinophils (%) (Auto) 3 0-10 % Basophils (%) (Auto) 0 0-10 % Neutrophils # (Auto) 5.5 1.8-7.8 10^3/uL Lymphocytes # (Auto) 1.7 1.0-4.0 10^3/uL Monocytes # (Auto) 0.3 0.0-1.0 10^3/uL Eosinophils # (Auto) 0.2 0.0-0.3 10^3/uL Basophils # (Auto) 0.0 0.0-0.1 10^3/uL Immature Granulocyte # (Auto) 0.0 0.0-0.1 10^3/uL Sodium Level 141 135-145 MMOL/L Potassium Level 3.9 3.6-5.0 MMOL/L Chloride Level 104 98-107 MMOL/L Carbon Dioxide Level 24 21-32 MMOL/L Anion Gap 13 5-14 MMOL/L Blood Urea Nitrogen 8 7-18 MG/DL Creatinine 0.61 0.60-1.30 MG/DL Estimat Glomerular Filtration Rate 122 BUN/Creatinine Ratio 13 Glucose Level 78 70-105 MG/DL Calcium Level 9.0 8.5-10.1 MG/DL Corrected Calcium 8.9 8.5-10.1 MG/DL Total Bilirubin 0.3 0.1-1.0 MG/DL Aspartate Amino Transf (AST/SGOT) 32 5-34 U/L Alanine Aminotransferase (ALT/SGPT) 68 H 0-55 U/L Alkaline Phosphatase 131 40-136 U/L Total Protein 6.8 6.4-8.2 GM/DL Albumin 4.1 3.2-4.5 GM/DL Lipase 11 8-78 U/L Serum Test, Qualitative NEGATIVE NEGATIVE (LOKESH ALMONTE MD) Vital Signs/I&O 01/06/21 14:55 Temp 36.6 Pulse 87 Resp 18 B/P (MAP) 119/75 (90) Pulse Ox 98 O2 Delivery Room Air (LOKESH ALMONTE MD) Blood Pressure Mean: 90 Departure Impression Primary Impression: Abdominal pain Disposition: HOME, SELF-CARE Condition: Stable Departure-Patient Inst. Decision time for Depature: 16:02 (MINAL HAMMER APRN) Referrals: [facility] [place] (PCP/Family) Primary Care Physician Patient Instructions: Abdominal Pain, Adult ED ATTENDING PHYSICIAN NOTE: I was physically present as attending physician in the emergency department during the care of this patient, but I was not directly involved in the decision making or delivery of care for this patient. (LOKESH ALMONTE MD) MINAL HAMMER APRN Jan 06, 2021 15:12 LOKESH ALMONTE MD Jan 09, 2021 21:44
[2021-01-06 15:25] LABS: BASOPHILS % (AUTO) 0 % (0-10); EOSINOPHILS # (AUTO) 0.2 10^3/uL (0.0-0.3); EOSINOPHILS % (AUTO) 3 % (0-10); HEMATOCRIT 35 % (35-52); HEMOGLOBIN 10.4 g/dL (11.5-16.0); LYMPHOCYTES # (AUTO) 1.7 10^3/uL (1.0-4.0); LYMPHOCYTES % (AUTO) 22 % (12-44); MEAN CORPUSCULAR HEMOGLOBIN 23 pg (25-34); MEAN CORPUSCULAR HGB CONC 30 g/dL (32-36); MEAN CORPUSCULAR VOLUME 75 fL (80-99); MEAN PLATELET VOLUME 11.7 fL (9.0-12.2); MONOCYTES # (AUTO) 0.3 10^3/uL (0.0-1.0); MONOCYTES % (AUTO) 4 % (0-12); NEUTROPHILS # (AUTO) 5.5 10^3/uL (1.8-7.8); NEUTROPHILS % (AUTO) 70 % (42-75); PLATELET COUNT 301 10^3/uL (130-400); WHITE BLOOD COUNT 7.8 10^3/uL (4.3-11.0)
[2021-01-06 15:35] LABS: ALBUMIN 4.1 GM/DL (3.2-4.5); POTASSIUM 3.9 MMOL/L (3.6-5.0)
[2021-01-06 15:38] LABS: TOTAL PROTEIN 6.8 GM/DL (6.4-8.2)
[2021-01-06 15:40] LABS: BILIRUBIN,TOTAL 0.3 MG/DL (0.1-1.0)
[2021-01-06 15:41] LABS: CREATININE SERUM 0.61 MG/DL (0.60-1.30)
== END 2021-01-06 16:32 | disposition home or self-care (01) ==
LOC: EDUNIT# 14:24 → ER 14:25
DX: R10.13 Epigastric pain (principal); I10 Essential (primary) hypertension; F17.210 Nicotine dependence, cigarettes, uncomplicated
CPT/HCPCS: 36415; 80053; 83690; 84703; 85025; 99281

== ENCOUNTER 2021-03-22 11:27 | Emergency (ER) | payer MEDICARE, MEDICAID ==
[~2021-03-22] VITALS: Ht 154.9 cm; Wt 77.5 kg
[2021-03-22] MEDS ORDERED: FLT11013 IH (12:05)
[2021-03-22] MEDS ORDERED: ONDA4TAB11 PO (12:05)
--- NOTE | 2021-03-22 12:05 | ED Cough/URI ---
General Chief Complaint: Cough/Cold/Flu Symptoms Stated Complaint: COUGH Source: patient Exam Limitations: no limitations History of Present Illness Date Seen by Provider: Mar 22, 2021 Time Seen by Provider: 11:40 Initial Comments 25-year-old female with no significant past medical history coming in due to 1 week of cough, congestion, and nausea without vomiting. Daughter does have confirmed RSV in the same timeline. Patient is not vaccinated for COVID. Had a negative Covid test last week. She says she would like to get retested as well. Says she feels mildly short of breath with her cough. Otherwise she is eating and drinking normally, denying any chest pain, abdominal pain, weakness, numbness, rash, dysuria, fever, or any other concerns Allergies and Home Medications Allergies Coded Allergies: No Known Drug Allergies (Unverified , 07/15/19) Patient Home Medication List Home Medication List Reviewed: Yes Ferrous Sulfate (Iron) 325 Mg Tablet, 325 MG PO BID, (Reported) Entered as Reported by: ROMEL GUTIERREZ on 10/30/20 020 Fluticasone Propionate (Flovent Hfa 110 mcg) 1 Ea Aero, 1 EA IH Q12H Prescribed by: ANIBAL WASHINGTON on 03/22/21 1205 Ibuprofen (Ibu) 600 Mg Tablet, 600 MG PO Q6HR Prescribed by: IRIS WOOTEN on 11/11/20 0740 Ondansetron (Ondansetron Odt) 4 Mg Tab.rapdis, 4 MG PO Q6H PRN for NAUSEA/VOMITING-1ST LINE Prescribed by: ANIBAL WASHINGTON on 03/22/21 1205 Vit No.124/Iron/FA ( Vitamin Tablet) 1 Each Tablet, 1 EACH PO DAILY, (Reported) Entered as Reported by: ROMEL GUTIERREZ on 10/30/20 020 Review of Systems Review of Systems Constitutional: No chills, No fever EENTM: nose congestion; No blurred vision Respiratory: cough, short of breath Cardiovascular: No chest pain Gastrointestinal: No abdominal pain, No diarrhea, No nausea, No vomiting Genitourinary: no symptoms reported Musculoskeletal: no symptoms reported Skin: no symptoms reported Psychiatric/Neurological: No Symptoms Reported Hematologic/Lymphatic: No Symptoms Reported Immunological/Allergic: no symptoms reported All Other Systems Reviewed Negative Unless Noted: Yes Past Srzgnvm-Yfuspp-Mqughh Hx Patient Social History Tobacco Use?: Yes Tobacco type used: Cigarettes Smoking Status: Current Everyday Smoker Use of E-Cig and/or Vaping dev: No Substance use?: No Alcohol Use?: No Pt feels they are or have been: No Immunizations Up To Date Tetanus Booster (TDap): Less than 5yrs PED Vaccines UTD: Yes Influenza Vaccine Up-to-Date: No; Not Current First/Initial COVID19 Vaccinat: N/A Second COVID19 Vaccination Chi: N/A Third COVID19 Vaccination Date: N/A Seasonal Allergies Seasonal Allergies: No Past Medical History Surgery/Hospitalization HX: Denies medical or surgical history Surgeries: Yes (D & C 2019) Adenoidectomy, Tonsillectomy Respiratory: No Cardiac: No Hypertension Neurological: No Reproductive Disorders: Yes Female Reproductive Disorders: Denies Sexually Transmitted Disease: No HIV/AIDS: No Genitourinary: No UTI-Chronic Gastrointestinal: No Musculoskeletal: No Chronic Back Pain Endocrine: No HEENT: No Loss of Vision: Denies Hearing Impairment: Denies Cancer: No Psychosocial: Yes Depression Integumentary: No Blood Disorders: No Adverse Reaction/Blood Tranf: No Family Medical History Diabetes mellitus 19 FATHER Grandparents (Paternal Grandparents) Fibrocystic disease of breast Grandparents (Maternal Grandmother) Hypertension 19 FATHER 19 MOTHER Grandparents (Maternal Grandfather Paternal Grandparents) No Pertinent Family Hx Physical Exam Vital Signs - First Documented 03/22/21 11:35 Temp 36.0 Pulse 86 Resp 16 B/P (MAP) 132/76 (94) Pulse Ox 98 O2 Delivery Room Air Capillary Refill : Height: 5'1.00" Weight: 187lbs. 6.0oz. 84.503255dn; 28.00 BMI Method:Stated General Appearance: WD/WN, no apparent distress Eyes: Bilateral Eye Normal Inspection HEENT: PERRL/EOMI, normal ENT inspection, pharynx normal Neck: non-tender, full range of motion, supple, normal inspection Respiratory: chest non-tender, lungs clear, normal breath sounds, no respiratory distress, no accessory muscle use Cardiovascular: regular rate, rhythm, no edema, no murmur Gastrointestinal: normal bowel sounds, non tender, soft; No distended, No guarding, No rebound Extremities: normal range of motion, non-tender, normal inspection, no pedal edema, no calf tenderness, normal capillary refill Neurologic/Psychiatric: no motor/sensory deficits, alert, normal mood/affect Skin: normal color, warm/dry Lymphatic: no adenopathy Progress/Results/Core Measures Suspected Sepsis SIRS Temperature: Pulse: Respiratory Rate: Blood Pressure / Mean: Results/Orders Lab Results Laboratory Tests Test 03/22/21 11:58 Range/Units My Orders Orders - ANIBAL WASHINGTON MD Influenza A & B Antigens (03/22/21 11:46) Covid 19 Inhouse Test (03/22/21 11:46) Chest 1 View Ap/Pa Only (03/22/21 11:46) Vital Signs/I&O 03/22/21 11:35 Temp 36.0 Pulse 86 Resp 16 B/P (MAP) 132/76 (94) Pulse Ox 98 O2 Delivery Room Air Capillary Refill : Progress Note : Progress Note 25-year-old female with above history coming in with URI type symptoms. She is well-appearing, ABCs intact, vital stable on presentation. Physical exam reassuring with no focal abnormalities, specifically clear lungs. Given she says she feels mildly short of breath chest x-ray ordered, and on my interpretation there is no obvious pneumonia, pneumothorax, effusion, normal cardiac silhouette, no other acute abnormality. Flu and COVID testing sent although this is likely some other virus like the daughter has. I believe the patient is stable for discharge with outpatient follow-up. She was sent home with strict return precautions. Diagnostic Imaging Diagonstic Imaging: Xray Plain Films/CT/US/NM/MRI: chest Comments NAME: [facility] REC#: [id number] PT STATUS: REG ER : 1995 PHYSICIAN: ANIBAL WASHINGTON MD ADMIT DATE: 03/22/21/ER FS Draft Date of Exam:03/22/21 CHEST 1 VIEW AP/PA ONLY EXAMINATION: Chest 1 view HISTORY: cough, SOA COMPARISON: None available. FINDINGS: Heart size and pulmonary vasculature are normal. The lungs are clear without consolidation, pleural effusion, or pneumothorax. The osseous structures are intact. IMPRESSION: 1. No acute radiographic abnormality in the chest. Dictated on workstation # [id number] Dict: 03/22/21 1201 Trans: 03/22/21 1203 [facility] [id number] Interpreted by: RORY LOW DO Electronically signed by: Departure Impression Primary Impression: Upper respiratory infection Qualified Codes: J06.9 - Acute upper respiratory infection, unspecified Additional Impression: Person under investigation for COVID-19 Disposition: 01 HOME, SELF-CARE Condition: Stable Departure-Patient Inst. Decision time for Depature: 12:03 Referrals: WILLIE NEWELL MD (PCP) Primary Care Physician Patient Instructions: COVID-19 Tests, Upper Respiratory Infection ED Add. Discharge Instructions: You likely have a viral upper respiratory infection like your daughter. Un fortunately antibiotics do not help with this. I have sent in a steroid inhaler for you to try as well as some nausea medicine to your pharmacy. This will take some time to clear. Drink plenty of fluids, take Tylenol or ibuprofen if you are running a fever or having body aches. Otherwise schedule an appointment with your regular doctor in the next week if you are not feeling well. Scripts Ondansetron (Ondansetron Odt) 4 Mg Tab.rapdis 4 MG PO Q6H PRN for NAUSEA/VOMITING-1ST LINE for 5 Days, #20 TAB Prov: ANIBAL WASHINGTON MD 03/22/21 Fluticasone Propionate (Flovent Hfa 110 mcg) 1 Ea Aero 1 EA IH Q12H for 14 Days, #1 EA Prov: ANIBAL WASHINGTON MD 03/22/21 ANIBAL WASHINGTON MD Mar 22, 2021 12:05
[2021-03-22 12:15] VITALS: BP 132/76
== END 2021-03-22 12:15 | disposition home or self-care (01) ==
LOC: EDUNIT# 11:27 → ER FS 11:28
DX: J06.9 Acute upper respiratory infection, unspecified (principal); I10 Essential (primary) hypertension; F17.210 Nicotine dependence, cigarettes, uncomplicated; Z20.822 Contact with and (suspected) exposure to COVID-19
CPT/HCPCS: 71045; 87635; 87804

== ENCOUNTER 2021-08-28 01:03 | Emergency (ER) | payer MEDICARE, MEDICAID ==
[~2021-08-28] VITALS: Ht 154.9 cm; Wt 80.3 kg
[~2021-08-28 01:03] MED LIST changes: +FLT11013 IH
[2021-08-28] MEDS ORDERED: FAMOTIDINE 20 MG (PEPCID) TABLET PO ONE (01:45)
[2021-08-28] MEDS ORDERED: HYOSCYAMINE 0.125 MG (LEVSIN) TAB SL ONE (01:45)
[2021-08-28] MEDS ORDERED: ANTACID SUSP 30 ML UDC (MYLANTA) PO ONE (01:45)
[2021-08-28] MEDS ORDERED: ONDANSETRON 4 MG/2 ML (SDV) Z0FRAN IVP ONE (01:45)
[2021-08-28] MEDS ORDERED: LIDOCAINE 2% VISCOUS 15 ML UDC PO ONE (01:45)
--- NOTE | 2021-08-28 01:48 | ED Abdominal Pain ---
General Chief Complaint: Abdominal/GI Problems Stated Complaint: ABD PAIN,VOMITING,DIARRHEA Source of Information: Patient Exam Limitations: No Limitations History of Present Illness Date Seen by Provider: Aug 28, 2021 Time Seen by Provider: 01:06 Initial Comments 25-year-old female with above history coming in due to a couple days of nonbloody nonbilious vomiting and nonbloody diarrhea. She says she is unsure if she ate a batch of bad chicken 3 days ago. She is having some epigastric burning which is worse when she lays down. She went to the urgent care earlier, had a negative test, and I told her she is dealing with acid reflux. She says the pain was worse when she laid back down again tonight, has taken no medicines for it, and is wanting to get evaluated. The pain is moderate, constant, burning, and nothing really seems to make it better. She is otherwise denying any other acute complaints. Allergies and Home Medications Allergies Coded Allergies: No Known Drug Allergies (Unverified , 07/15/19) Patient Home Medication List Home Medication List Reviewed: Yes Ferrous Sulfate (Iron) 325 Mg Tablet, 325 MG PO BID, (Reported) Entered as Reported by: ROMEL GUTIERREZ on 10/30/20 020 Fluticasone Propionate (Flovent Hfa 110 mcg) 1 Ea Aero, 1 EA IH Q12H Prescribed by: ANIBAL WASHINGTON on 03/22/21 1205 Ibuprofen (Ibu) 600 Mg Tablet, 600 MG PO Q6HR Prescribed by: IRIS WOOTEN on 11/11/20 0740 Ondansetron (Ondansetron Odt) 4 Mg Tab.rapdis, 4 MG PO Q6H PRN for NAUSEA/VOMITING-1ST LINE Prescribed by: ANIBAL WASHINGTON on 03/22/21 1205 Vit No.124/Iron/FA ( Vitamin Tablet) 1 Each Tablet, 1 EACH PO DAILY, (Reported) Entered as Reported by: ROMEL GUTIERREZ on 10/30/20206 Review of Systems Review of Systems Constitutional: No fever EENTM: No Blurred Vision Respiratory: Denies Cough Cardiovascular: Denies Chest Pain Gastrointestinal: Abdominal Pain, Diarrhea, Nausea, Vomiting Genitourinary: No Symptoms Reported Musculoskeletal: no symptoms reported Skin: no symptoms reported Psychiatric/Neurological: No Symptoms Reported Endocrine: No Symptoms Reported Hematologic/Lymphatic: No Symptoms Reported All Other Systems Reviewed Negative Unless Noted: Yes Past Hmhiiox-Uzirto-Lytxpf Hx Patient Social History Tobacco Use?: No Immunizations Up To Date Tetanus Booster (TDap): Less than 5yrs PED Vaccines UTD: Yes First/Initial COVID19 Vaccinat: N/A Second COVID19 Vaccination Chi: N/A Third COVID19 Vaccination Date: N/A Seasonal Allergies Seasonal Allergies: No Past Medical History Surgery/Hospitalization HX: Denies medical or surgical history Surgeries: Yes (D & C 2018) Adenoidectomy, Tonsillectomy Respiratory: No Cardiac: No Hypertension Neurological: No Reproductive Disorders: Yes Female Reproductive Disorders: Denies Sexually Transmitted Disease: No HIV/AIDS: No Genitourinary: No UTI-Chronic Gastrointestinal: No Musculoskeletal: No Chronic Back Pain Endocrine: No HEENT: No Loss of Vision: Denies Hearing Impairment: Denies Cancer: No Psychosocial: Yes Depression Integumentary: No Blood Disorders: No Adverse Reaction/Blood Tranf: No Family Medical History Diabetes mellitus 19 FATHER Grandparents (Paternal Grandparents) Fibrocystic disease of breast Grandparents (Maternal Grandmother) Hypertension 19 FATHER 19 MOTHER Grandparents (Maternal Grandfather Paternal Grandparents) No Pertinent Family Hx Physical Exam Vital Signs Vital Signs - First Documented 08/28/21 01:45 Temp 36.8 Pulse 85 Resp 20 B/P (MAP) 127/82 (97) Pulse Ox 98 O2 Delivery Room Air Capillary Refill : Height/Weight/BMI Height: 5'1.00" Weight: 187lbs. 6.0oz. 84.719490zh; 32.00 BMI Method:Stated General Appearance: WD/WN, no apparent distress HEENT: PERRL/EOMI, normal ENT inspection, pharynx normal Neck: non-tender, full range of motion, supple, normal inspection Respiratory: chest non-tender, lungs clear, normal breath sounds, no respiratory distress, no accessory muscle use Cardiovascular: regular rate, rhythm, no edema, no murmur Gastrointestinal: normal bowel sounds, non tender, soft; No distended, No guarding, No rebound Extremities: normal range of motion, non-tender, normal inspection, no pedal edema, no calf tenderness, normal capillary refill Back: normal inspection, no CVA tenderness Neurologic/Psychiatric: no motor/sensory deficits, alert, normal mood/affect Skin: normal color, warm/dry Lymphatic: no adenopathy Progress/Results/Core Measures Results/Orders Lab Results Laboratory Tests Test 08/28/21 01:42 08/28/21 02:05 Range/Units Urine Color YELLOW Urine Clarity CLEAR Urine pH 6.0 5-9 Urine Specific [place] >=1.030 1.016-1.022 Urine Protein 1+ H NEGATIVE Urine Glucose (UA) NEGATIVE NEGATIVE Urine Ketones NEGATIVE NEGATIVE Urine Nitrite NEGATIVE NEGATIVE Urine Bilirubin 1+ H NEGATIVE Urine Urobilinogen 1.0 < = 1.0 MG/DL Urine Leukocyte Esterase NEGATIVE NEGATIVE Urine RBC (Auto) NEGATIVE NEGATIVE Urine RBC NONE /HPF Urine WBC NONE /HPF Urine Squamous Epithelial Cells 5-10 /HPF Urine Crystals NONE /LPF Urine Bacteria NEGATIVE /HPF Urine Casts NONE /LPF Urine Mucus LARGE H /LPF Urine Culture Indicated NO White Blood Count 9.9 4.3-11.0 10^3/uL Red Blood Count 4.86 3.80-5.11 10^6/uL Hemoglobin 12.0 11.5-16.0 g/dL Hematocrit 38 35-52 % Mean Corpuscular Volume 79 L 80-99 fL Mean Corpuscular Hemoglobin 25 25-34 pg Mean Corpuscular Hemoglobin Concent 31 L 32-36 g/dL Red Cell Distribution Width 14.8 H 10.0-14.5 % Platelet Count 268 130-400 10^3/uL Mean Platelet Volume 11.9 9.0-12.2 fL Immature Granulocyte % (Auto) 1 % Neutrophils (%) (Auto) 66 42-75 % Lymphocytes (%) (Auto) 26 12-44 % Monocytes (%) (Auto) 5 0-12 % Eosinophils (%) (Auto) 3 0-10 % Basophils (%) (Auto) 1 0-10 % Neutrophils # (Auto) 6.5 1.8-7.8 10^3/uL Lymphocytes # (Auto) 2.5 1.0-4.0 10^3/uL Monocytes # (Auto) 0.5 0.0-1.0 10^3/uL Eosinophils # (Auto) 0.3 0.0-0.3 10^3/uL Basophils # (Auto) 0.1 0.0-0.1 10^3/uL Immature Granulocyte # (Auto) 0.1 0.0-0.1 10^3/uL Sodium Level 141 135-145 MMOL/L Potassium Level 3.4 L 3.6-5.0 MMOL/L Chloride Level 106 98-107 MMOL/L Carbon Dioxide Level 22 21-32 MMOL/L Anion Gap 13 5-14 MMOL/L Blood Urea Nitrogen 11 7-18 MG/DL Creatinine 0.62 0.60-1.30 MG/DL Estimat Glomerular Filtration Rate 128 BUN/Creatinine Ratio 18 Glucose Level 96 70-105 MG/DL Calcium Level 9.3 8.5-10.1 MG/DL Corrected Calcium 9.0 8.5-10.1 MG/DL Total Bilirubin 0.2 0.1-1.0 MG/DL Aspartate Amino Transf (AST/SGOT) 22 5-34 U/L Alanine Aminotransferase (ALT/SGPT) 30 0-55 U/L Alkaline Phosphatase 89 40-136 U/L Total Protein 7.1 6.4-8.2 GM/DL Albumin 4.4 3.2-4.5 GM/DL Lipase 14 8-78 U/L My Orders Orders - ANIBAL WASHINGTON MD Cbc With Automated Diff (08/28/21 01:44) Comprehensive Metabolic Panel (08/28/21 01:44) Lipase (08/28/21 01:44) Ua Culture If Indicated (08/28/21 01:44) Ondansetron Injection (Zofran Injectio (08/28/21 01:45) Famotidine Tablet (Pepcid Tablet) (08/28/21 01:45) Lidocaine 2% Viscous 15 Ml (Xylocaine Vi (08/28/21 01:45) Antacid Suspension (Mylanta Suspension (08/28/21 01:45) Hyoscyamine Sl Tablet (Levsin Sl Tablet) (08/28/21 01:45) Ed Iv/Invasive Line Start (08/28/21 01:44) Medications Given in ED Current Medications Medications Dose Ordered Sig/Robert Route Start Time Stop Time Status Last Admin Dose Admin Al Hydrox/Mg Hydrox/Simethicone 30 ml ONCE ONCE PO 08/28/21 01:45 08/28/21 01:46 DC 08/28/21 02:08 30 ML Famotidine 20 mg ONCE ONCE PO 08/28/21 01:45 08/28/21 01:46 DC 08/28/21 02:08 20 MG Hyoscyamine Sulfate 0.125 mg ONCE ONCE SL 08/28/21 01:45 08/28/21 01:46 DC 08/28/21 02:08 0.125 MG Lidocaine HCl 15 ml ONCE ONCE PO 08/28/21 01:45 08/28/21 01:46 DC 08/28/21 02:08 15 ML Ondansetron HCl 4 mg ONCE ONCE IVP 08/28/21 01:45 08/28/21 01:46 DC 08/28/21 02:08 4 MG Vital Signs/I&O 08/28/21 01:45 Temp 36.8 Pulse 85 Resp 20 B/P (MAP) 127/82 (97) Pulse Ox 98 O2 Delivery Room Air Progress Progress Note : Progress Note 25-year-old female with above history coming in due to epigastric burning, vomiting, diarrhea. ABCs were intact and vitals were stable on presentation. Physical exam reassuring including a soft and nontender abdomen. An IV was pl aced and basic labs were obtained including LFTs which are reassuring as well. Urinalysis negative for infection. test negative per her labs earlier today. The patient was given a GI cocktail with significant improvement in symptoms. Likely is a GI bug. Patient does not want COVID testing at this time. I believe she is stable for discharge with outpatient follow-up. She was sent home with strict return precautions. Departure Impression Primary Impression: Vomiting in adult Additional Impression: Diarrhea Qualified Codes: R19.7 - Diarrhea, unspecified Disposition: HOME, SELF-CARE Condition: Stable Departure-Patient Inst. Decision time for Depature: 02:46 Referrals: WILLIE NEWELL MD (PCP) Primary Care Physician [facility] (Family) Primary Care Physician Patient Instructions: Nausea and Vomiting, Adult ED Add. Discharge Instructions: It is possible you do have food poisoning versus a GI bug. Typically it takes roughly 5 days to get better. Drink plenty of fluids, nausea medicines were sent to [facility]. Medicines for pain were sent there as well. Follow- up with your regular doctor in the next couple of days if things are not improving. Scripts Hyoscyamine Sulfate (Levsin-Sl) 0.125 Mg Tab.subl 0.125 MG SL Q6H PRN for SPASMS for 5 Days, #20 TAB 0 Refills Prov: ANIBAL WASHINGTON MD 08/28/21 Ondansetron (Ondansetron Odt) 4 Mg Tab.rapdis 4 MG PO Q6H PRN for NAUSEA/VOMITING-1ST LINE for 5 Days, #20 TAB Prov: ANIBAL WASHINGTON MD 08/28/21 Pantoprazole Sodium (Protonix) 40 Mg Tablet.dr 40 MG PO DAILY for 30 Days, #30 TAB Prov: ANIBAL WASHINGTON MD 08/28/21 Work/School Note: Family Work Note, Patient Received Medical Care In the Emergency Department On: Aug 28, 2021 Patient Will Be Able to Return to Work/School On: Aug 29, 2021 Work Release Form Date Seen in the Emergency Department: Aug 28, 2021 Return to Work: Aug 29, 2021 Restrictions: Return-No Vomiting(24hrs) ANIBAL WASHINGTON MD Aug 28, 2021 01:48
[2021-08-28 01:49] LABS: CLARITY,URINE CLEAR; COLOR,URINE YELLOW; GLUCOSE, URINE (UA) NEGATIVE (NEGATIVE); KETONES,URINE NEGATIVE (NEGATIVE); LEUKOCYTE ESTERASE ,URINE NEGATIVE (NEGATIVE); NITRITE,URINE NEGATIVE (NEGATIVE); PROTEIN,URINE 1+ (NEGATIVE)
[2021-08-28 02:06] LABS: BACTERIA,URINE NEGATIVE /HPF; BILIRUBIN,URINE 1+ (NEGATIVE)
[2021-08-28 02:20] LABS: BASOPHILS # (AUTO) 0.1 10^3/uL (0.0-0.1); BASOPHILS % (AUTO) 1 % (0-10); EOSINOPHILS # (AUTO) 0.3 10^3/uL (0.0-0.3); EOSINOPHILS % (AUTO) 3 % (0-10); HEMATOCRIT 38 % (35-52); LYMPHOCYTES # (AUTO) 2.5 10^3/uL (1.0-4.0); LYMPHOCYTES % (AUTO) 26 % (12-44); MEAN CORPUSCULAR HEMOGLOBIN 25 pg (25-34); MEAN CORPUSCULAR HGB CONC 31 g/dL (32-36); MEAN CORPUSCULAR VOLUME 79 fL (80-99); MEAN PLATELET VOLUME 11.9 fL (9.0-12.2); MONOCYTES # (AUTO) 0.5 10^3/uL (0.0-1.0); MONOCYTES % (AUTO) 5 % (0-12); NEUTROPHILS # (AUTO) 6.5 10^3/uL (1.8-7.8); NEUTROPHILS % (AUTO) 66 % (42-75); PLATELET COUNT 268 10^3/uL (130-400); WHITE BLOOD COUNT 9.9 10^3/uL (4.3-11.0)
[2021-08-28 02:26] LABS: ALBUMIN 4.4 GM/DL (3.2-4.5); POTASSIUM 3.4 MMOL/L (3.6-5.0)
[2021-08-28 02:27] LABS: CALCIUM 9.3 MG/DL (8.5-10.1)
[2021-08-28 02:28] LABS: TOTAL PROTEIN 7.1 GM/DL (6.4-8.2)
[2021-08-28 02:30] LABS: BILIRUBIN,TOTAL 0.2 MG/DL (0.1-1.0)
[2021-08-28 02:32] LABS: CREATININE SERUM 0.62 MG/DL (0.60-1.30)
[2021-08-28] MEDS ORDERED: PANT40TA2 PO (02:48)
[2021-08-28] MEDS ORDERED: ONDA4TAB11 PO (02:48)
[2021-08-28] MEDS ORDERED: HYOS0.1283 SL (02:48)
[2021-08-28 03:17] VITALS: BP 107/65
== END 2021-08-28 03:21 | disposition home or self-care (01) ==
LOC: EDUNIT# 01:03 → ER 01:06
DX: R11.2 Nausea with vomiting, unspecified (principal); R19.7 Diarrhea, unspecified; Z28.310 Unvaccinated for COVID-19
CPT/HCPCS: 36415; 80053; 81000; 83690; 85025

== ENCOUNTER 2022-04-27 01:27 | Emergency (ER) | payer MEDICARE, MEDICAID ==
[~2022-04-27] VITALS: Ht 155 cm; Wt 87.0 kg
[~2022-04-27 01:27] MED LIST changes: +HYOS0.1283 SL; +PANT40TA2 PO
[2022-04-27] MEDS ORDERED: ACETAMINOPHEN 500 MG TAB (TYLENOL) PO STA (01:51)
[2022-04-27] MEDS ORDERED: ANTACID SUSP 30 ML UDC (MYLANTA) PO ONE (02:00)
--- NOTE | 2022-04-27 02:04 | ED General ---
General Chief Complaint: General Problems/Pain Stated Complaint: 29 WKS PREG,CP,SOB,DIZZY Nursing Triage Note: C/O UPPER BACK PAIN SINCE 11AM, SOA/EPIGASTRIC PAIN SINCE 202904/26/22 REPORTS BEING 29WEEKS . Source of Information: Patient Exam Limitations: No Limitations History of Present Illness Date Seen by Provider: Apr 27, 2022 Time Seen by Provider: 01:38 Initial Comments Here with upper back pain, epigastric pain and right upper chest pain with shortness of air since about 8:30 PM last night. She is 29 weeks . She follows with Dr. Newell. She states the pain is worse when laying down and better when sitting up. Denies nausea or vomiting. Denies fever or chills. She does not know what is causing the pain. She has not tried anything for the pain because she was worried about taking acetaminophen due to the commercials on TV. This is her fifth and she has 2 previous live births with 2 previous miscarriages. She describes the pain as sharp in other areas. Timing/Duration: 4-6 Hours, Constant Severity: Moderate Modifying Factors: worse with Other (Laying down makes it worse) Associated Systoms: No Cough, No Fever/Chills, No Nausea/Vomiting; Shortness of Air; No Weakness Allergies and Home Medications Allergies Coded Allergies: No Known Drug Allergies (Unverified , 07/15/19) Patient Home Medication List Home Medication List Reviewed: Yes Ferrous Sulfate (Iron) 325 Mg Tablet, 325 MG PO BID, (Reported) Entered as Reported by: ROMEL GUTIERREZ on 10/30/20 0207 Fluticasone Propionate (Flovent Hfa 110 mcg) 1 Ea Aero, 1 EA IH Q12H Prescribed by: ANIBAL WASHINGTON on 03/22/21 1205 Hyoscyamine Sulfate (Levsin-Sl) 0.125 Mg Tab.subl, 0.125 MG SL Q6H PRN for SPASMS Prescribed by: ANIBAL WASHINGTON on 08/28/21 0248 Ibuprofen (Ibu) 600 Mg Tablet, 600 MG PO Q6HR Prescribed by: IRIS WOOTEN on 11/11/20 0740 Ondansetron (Ondansetron Odt) 4 Mg Tab.rapdis, 4 MG PO Q6H PRN for NAUSEA/VOMITING-1ST LINE Prescribed by: ANIBAL WASHINGTON on 03/22/21 1205 Ondansetron (Ondansetron Odt) 4 Mg Tab.rapdis, 4 MG PO Q6H PRN for NAUSEA/VOMITING-1ST LINE Prescribed by: ANIBAL WASHINGTON on 08/28/21 0248 Pantoprazole Sodium (Protonix) 40 Mg Tablet.dr, 40 MG PO DAILY Prescribed by: ANIBAL WASHINGTON on 08/28/21 0248 Vit No.124/Iron/FA ( Vitamin Tablet) 1 Each Tablet, 1 EACH PO DAILY, (Reported) Entered as Reported by: ROMEL GUTIERREZ on 10/30/20 0207 Review of Systems Review of Systems Constitutional: see HPI; No chills, No fever EENTM: No nose congestion, No throat pain Respiratory: No cough; short of breath Cardiovascular: no symptoms reported Gastrointestinal: abdominal pain; No nausea, No vomiting Genitourinary: no symptoms reported Expected Date of Delivery: Jul 13, 2022 Musculoskeletal: back pain (Upper back); No muscle pain Skin: no symptoms reported Past Nuiqgbw-Lbdjno-Omhqry Hx Patient Social History Tobacco Use?: Yes Tobacco type used: Cigarettes Substance use?: No Alcohol Use?: No Pt feels they are or have been: No Immunizations Up To Date Tetanus Booster (TDap): Less than 5yrs PED Vaccines UTD: Yes First/Initial COVID19 Vaccinat: N/A Second COVID19 Vaccination Chi: N/A Third COVID19 Vaccination Date: N/A Seasonal Allergies Seasonal Allergies: No Past Medical History Surgery/Hospitalization HX: ASTHMA, GESTATIONAL DIABETES, GERD, HTN, BACK PAIN, DEPRESSION, D&C, T/A Surgeries: Yes (D & C 2019) Adenoidectomy, Tonsillectomy Respiratory: No Cardiac: No Hypertension Neurological: No Expected Date of Delivery: Jul 13, 2022 Reproductive Disorders: Yes Female Reproductive Disorders: Denies Sexually Transmitted Disease: No HIV/AIDS: No Genitourinary: No UTI-Chronic Gastrointestinal: No Musculoskeletal: No Chronic Back Pain Endocrine: No HEENT: No Loss of Vision: Denies Hearing Impairment: Denies Cancer: No Psychosocial: Yes Depression Integumentary: No Blood Disorders: No Adverse Reaction/Blood Tranf: No Family Medical History Reviewed Nursing Family Hx Diabetes mellitus 19 FATHER Grandparents (Paternal Grandparents) Fibrocystic disease of breast Grandparents (Maternal Grandmother) Hypertension 19 FATHER 19 MOTHER Grandparents (Maternal Grandfather Paternal Grandparents) No Pertinent Family Hx Physical Exam Vital Signs Vital Signs - First Documented 04/27/22 01:33 Temp 35.8 Pulse 97 Resp 16 B/P (MAP) 134/81 (98) Pulse Ox 98 O2 Delivery Room Air Capillary Refill : Less Than 3 Seconds Height, Weight, BMI Height: 5'1.00" Weight: 187lbs. 6.0oz. 84.955070sq; 36.00 BMI Method:Stated General Appearance: WD/WN, Mild Distress HEENT: PERRL/EOMI, Pharynx Normal Neck: Non Tender, Supple Respiratory: Lungs Clear, Normal Breath Sounds Cardiovascular: Regular Rate, Rhythm, No Murmur Gastrointestinal: Non Tender, Soft, Other (Gravid) Back: Normal Inspection, No CVA Tenderness, No Vertebral Tenderness Extremity: Normal Range of Motion, Non Tender Neurologic/Psychiatric: Alert, Oriented x3 Skin: Normal Color, Warm/Dry Progress/Results/Core Measures Suspected Sepsis SIRS Temperature: Pulse: 97 Respiratory Rate: 16 Laboratory Tests 04/27/22 01:59: White Blood Count 14.3H Blood Pressure 134 /81 Mean: 98 Laboratory Tests 04/27/22 01:59: Creatinine 0.50L, Platelet Count 180, Total Bilirubin 0.3 Results/Orders Lab Results Laboratory Tests Test 04/27/22 01:45 04/27/22 01:59 Range/Units Urine Color YELLOW Urine Clarity CLEAR Urine pH 6.5 5-9 Urine Specific [place] 1.015 L 1.016-1.022 Urine Protein NEGATIVE NEGATIVE Urine Glucose (UA) NEGATIVE NEGATIVE Urine Ketones NEGATIVE NEGATIVE Urine Nitrite NEGATIVE NEGATIVE Urine Bilirubin NEGATIVE NEGATIVE Urine Urobilinogen 1.0 < = 1.0 MG/DL Urine Leukocyte Esterase 2+ H NEGATIVE Urine RBC (Auto) NEGATIVE NEGATIVE Urine RBC NONE /HPF Urine WBC 5-10 H /HPF Urine Squamous Epithelial Cells 5-10 /HPF Urine Crystals NONE /LPF Urine Bacteria NEGATIVE /HPF Urine Casts NONE /LPF Urine Mucus NEGATIVE /LPF Urine Culture Indicated YES White Blood Count 14.3 H 4.3-11.0 10^3/uL Red Blood Count 3.76 L 3.80-5.11 10^6/uL Hemoglobin 10.3 L 11.5-16.0 g/dL Hematocrit 31 L 35-52 % Mean Corpuscular Volume 81 80-99 fL Mean Corpuscular Hemoglobin 27 25-34 pg Mean Corpuscular Hemoglobin Concent 34 32-36 g/dL Red Cell Distribution Width 14.4 10.0-14.5 % Platelet Count 180 130-400 10^3/uL Mean Platelet Volume 13.0 H 9.0-12.2 fL Immature Granulocyte % (Auto) 2 % Neutrophils (%) (Auto) 75 42-75 % Lymphocytes (%) (Auto) 17 12-44 % Monocytes (%) (Auto) 5 0-12 % Eosinophils (%) (Auto) 2 0-10 % Basophils (%) (Auto) 0 0-10 % Neutrophils # (Auto) 10.7 H 1.8-7.8 10^3/uL Lymphocytes # (Auto) 2.4 1.0-4.0 10^3/uL Monocytes # (Auto) 0.6 0.0-1.0 10^3/uL Eosinophils # (Auto) 0.3 0.0-0.3 10^3/uL Basophils # (Auto) 0.1 0.0-0.1 10^3/uL Immature Granulocyte # (Auto) 0.2 H 0.0-0.1 10^3/uL Sodium Level 137 135-145 MMOL/L Potassium Level 3.6 3.6-5.0 MMOL/L Chloride Level 106 98-107 MMOL/L Carbon Dioxide Level 19 L 21-32 MMOL/L Anion Gap 12 5-14 MMOL/L Blood Urea Nitrogen 7 7-18 MG/DL Creatinine 0.50 L 0.60-1.30 MG/DL Estimat Glomerular Filtration Rate 134 BUN/Creatinine Ratio 14 Glucose Level 86 70-105 MG/DL Calcium Level 8.8 8.5-10.1 MG/DL Corrected Calcium 9.4 8.5-10.1 MG/DL Total Bilirubin 0.3 0.1-1.0 MG/DL Aspartate Amino Transf (AST/SGOT) 20 5-34 U/L Alanine Aminotransferase (ALT/SGPT) 34 0-55 U/L Alkaline Phosphatase 130 40-136 U/L Total Protein 6.4 6.4-8.2 GM/DL Albumin 3.3 3.2-4.5 GM/DL My Orders Orders - JENIFFER BELTRAN MD Ekg Tracing (04/27/22 01:38) Cbc With Automated Diff (04/27/22 01:51) Comprehensive Metabolic Panel (04/27/22 01:51) Ua Culture If Indicated (04/27/22 01:51) Antacid Suspension (Mylanta Suspension (04/27/22 02:00) Acetaminophen Tablet (Tylenol Tablet) (04/27/22 01:51) Urine Culture (04/27/22 01:45) Medications Given in ED Current Medications Medications Dose Ordered Sig/Robert Route Start Time Stop Time Status Last Admin Dose Admin Al Hydrox/Mg Hydrox/Simethicone 30 ml ONCE ONCE PO 04/27/22 02:00 04/27/22 02:01 DC 04/27/22 01:56 30 ML Vital Signs/I&O 04/27/22 01:33 Temp 35.8 Pulse 97 Resp 16 B/P (MAP) 134/81 (98) Pulse Ox 98 O2 Delivery Room Air Capillary Refill : Less Than 3 Seconds Blood Pressure Mean: 98 Progress Note : Progress Note Seen and evaluated. We will check basic labs including CBC, CMP and UA. We will hold on chest x-ray at this point due to and O2 saturations are in upper 90s while resting. Lung sounds do not indicate pneumonia or other problems. Acetaminophen 1 g p.o. ordered after discussion with patient. She agrees to try this. Mylanta 30 mL p.o. ordered. Patient has had right upper quadrant ultrasound in 2020 to evaluate the gallbladder which did not show any stones or other problems. She had right upper quadrant abdominal pain similar to this during at that time. Monitor patient. 0351: UA resulted and there is no protein and is otherwise nonconcerning. CBC consistent with with slightly elevated white count. Chemistry nonconcerning total bili normal. I did do bedside ultrasound and heart tones 140s to 150s with positive movement. I did discuss the case with the on-call service associate for [facility], Dr. Wooten. He had no further concerns. We did discuss famotidine. This was offered to the patient but she declined. She feels comfortable going home. Oxygen saturations remain 97% or above. Heart rate 80s to 90s on the patient. Blood pressure 130 systolic. Discharged home with return precautions. Patient verbalized understanding instructions and agreement with plan. ECG Initial ECG Impression Date: Apr 27, 2022 Initial ECG Impression Time: 01:39 Initial ECG Rate: 100 Initial ECG Rhythm: S.Tach Comment Sinus tachycardia with normal axis. No evidence of ST elevation [place]. Interpreted by me. Departure Impression Primary Impression: Right-sided chest pain Additional Impressions: Right upper quadrant pain with 29 completed weeks gestation Disposition: 01 HOME, SELF-CARE Condition: Stable Departure-Patient Inst. Decision time for Depature: 03:53 Referrals: WILLIE NEWELL MD (PCP/Family) Primary Care Physician Patient Instructions: Abdominal Pain, Adult ED, Chest Pain (DC), Medications and Add. Discharge Instructions: All discharge instructions reviewed with patient and/or family. Voiced understanding. Continue previously prescribed medications. You may take nmhw-woz-vibtlto Tylenol/acetaminophen 1000 mg every 6-8 hours as needed for pain. You may take zhmh-krh-vewywur Pepcid or the generic famotidine 20 mg daily for stomach upset. You may use Tums per package directions. Follow-up with your service associate early next week for recheck and further evaluation. Call her office for appointment. Return for worse pain, breathing problems, weakness, vision or balance problems, fever or other concerns as needed. JENIFFER BELTRAN MD Apr 27, 2022 02:04
[2022-04-27 02:12] LABS: BASOPHILS # (AUTO) 0.1 10^3/uL (0.0-0.1); BASOPHILS % (AUTO) 0 % (0-10); EOSINOPHILS # (AUTO) 0.3 10^3/uL (0.0-0.3); EOSINOPHILS % (AUTO) 2 % (0-10); HEMATOCRIT 31 % (35-52); HEMOGLOBIN 10.3 g/dL (11.5-16.0); LYMPHOCYTES # (AUTO) 2.4 10^3/uL (1.0-4.0); LYMPHOCYTES % (AUTO) 17 % (12-44); MEAN CORPUSCULAR HEMOGLOBIN 27 pg (25-34); MEAN CORPUSCULAR HGB CONC 34 g/dL (32-36); MEAN CORPUSCULAR VOLUME 81 fL (80-99); MONOCYTES # (AUTO) 0.6 10^3/uL (0.0-1.0); MONOCYTES % (AUTO) 5 % (0-12); NEUTROPHILS # (AUTO) 10.7 10^3/uL (1.8-7.8); NEUTROPHILS % (AUTO) 75 % (42-75); PLATELET COUNT 180 10^3/uL (130-400); WHITE BLOOD COUNT 14.3 10^3/uL (4.3-11.0)
[2022-04-27 02:27] LABS: BILIRUBIN,URINE NEGATIVE (NEGATIVE); CLARITY,URINE CLEAR; COLOR,URINE YELLOW; GLUCOSE, URINE (UA) NEGATIVE (NEGATIVE); KETONES,URINE NEGATIVE (NEGATIVE); LEUKOCYTE ESTERASE ,URINE 2+ (NEGATIVE); NITRITE,URINE NEGATIVE (NEGATIVE); PH,URINE 6.5 (5-9); PROTEIN,URINE NEGATIVE (NEGATIVE)
[2022-04-27 02:32] LABS: ALBUMIN 3.3 GM/DL (3.2-4.5); POTASSIUM 3.6 MMOL/L (3.6-5.0)
[2022-04-27 02:33] LABS: CALCIUM 8.8 MG/DL (8.5-10.1)
[2022-04-27 02:34] LABS: TOTAL PROTEIN 6.4 GM/DL (6.4-8.2)
[2022-04-27 02:36] LABS: BILIRUBIN,TOTAL 0.3 MG/DL (0.1-1.0)
[2022-04-27 02:38] LABS: CREATININE SERUM 0.5 MG/DL (0.60-1.30)
[2022-04-27 02:49] LABS: BACTERIA,URINE NEGATIVE /HPF
[2022-04-27 03:57] VITALS: BP 133/73
== END 2022-04-27 04:00 | disposition home or self-care (01) ==
LOC: EDUNIT# 01:27 → ER 01:30
DX: O99.891 Other specified diseases and conditions complicating pregnancy (principal); R07.89 Other chest pain; O26.893 Other specified pregnancy related conditions, third trimester; R10.13 Epigastric pain; R10.11 Right upper quadrant pain; O99.333 Smoking (tobacco) complicating pregnancy, third trimester; F17.210 Nicotine dependence, cigarettes, uncomplicated; Z3A.29 29 weeks gestation of pregnancy; Z28.310 Unvaccinated for COVID-19
CPT/HCPCS: 36415; 80053; 81000; 85025; 87088; 93005

== ENCOUNTER 2022-06-01 00:01 | Outpatient (CLI) | payer MEDICARE, MEDICAID ==
[2022-06-01 00:05] VITALS: BP 127/63
[2022-06-01] MEDS ORDERED: LACTATED RINGERS 1,000 ML IV ONE (00:45)
[2022-06-01 01:36] LABS: BILIRUBIN,URINE NEGATIVE (NEGATIVE); CLARITY,URINE CLEAR; COLOR,URINE YELLOW; GLUCOSE, URINE (UA) NEGATIVE (NEGATIVE); KETONES,URINE NEGATIVE (NEGATIVE); LEUKOCYTE ESTERASE ,URINE TRACE (NEGATIVE); NITRITE,URINE NEGATIVE (NEGATIVE); PH,URINE 6.5 (5-9); PROTEIN,URINE NEGATIVE (NEGATIVE)
[2022-06-01] MEDS ORDERED: D5 LR IV SOLUTION 1,000 ML IV SCH (01:45)
[2022-06-01 01:46] LABS: BACTERIA,URINE NEGATIVE /HPF; SQUAMOUS EPITHELIAL CELL,UR 0-2 /HPF; WBC,URINE 0-2 /HPF; YEAST,URINE FEW /HPF
--- NOTE | 2022-06-03 08:30 | Physician Query-Final Dx ---
Clinic Account Progress/Dx Physician Query: Please give diagnosis Please include # weeks gestation Date of Service Jun 01, 2022 at 00:01 HOA,FebJun 03, 2022 08:30
== END 2022-06-01 04:23 | disposition home or self-care (01) ==
LOC: WSo 00:01 → LDRP 00:02 → WSo 04:23
PROVIDERS: ATTEND Family Medicine
DX: O9A.213 Injury, poisoning and certain other consequences of external causes complicating pregnancy, third trimester (principal); V89.2XXA Person injured in unspecified motor-vehicle accident, traffic, initial encounter; Z3A.34 34 weeks gestation of pregnancy
CPT/HCPCS: 81000; 87088

== ENCOUNTER 2022-06-01 21:15 | Outpatient (CLI) | payer MEDICARE, MEDICAID ==
[~2022-06-01] VITALS: Ht 154.9 cm; Wt 84.2 kg
[2022-06-01 21:32] VITALS: BP 124/62
[2022-06-01 21:45] LABS: BILIRUBIN,URINE NEGATIVE (NEGATIVE); CLARITY,URINE CLEAR; COLOR,URINE YELLOW; GLUCOSE, URINE (UA) NEGATIVE (NEGATIVE); KETONES,URINE NEGATIVE (NEGATIVE); LEUKOCYTE ESTERASE ,URINE 1+ (NEGATIVE); NITRITE,URINE NEGATIVE (NEGATIVE); PROTEIN,URINE NEGATIVE (NEGATIVE)
[2022-06-01 21:56] LABS: AMORPHOUS SEDIMENT,UR LARGE AMOR PHOSPHATE /LPF; BACTERIA,URINE LARGE /HPF
[2022-06-01] MEDS ORDERED: ACETAMINOPHEN 500 MG TAB (TYLENOL) PO ONE (22:45)
[2022-06-01] MEDS ORDERED: AMOXICILLIN 250 MG (POLYMOX) CAP PO ONE (22:45)
[2022-06-01] MEDS ORDERED: ONDANSETRON 4 MG (ZOFRAN) ORAL DISSOLVE TAB PO ONE (22:45)
[2022-06-01] MEDS ORDERED: LACTATED RINGERS 1,000 ML IV ONE (23:00)
[2022-06-01 23:29] LABS: BASOPHILS % (AUTO) 0 % (0-10); EOSINOPHILS # (AUTO) 0.2 10^3/uL (0.0-0.3); EOSINOPHILS % (AUTO) 2 % (0-10); HEMATOCRIT 28 % (35-52); LYMPHOCYTES % (AUTO) 18 % (12-44); MEAN CORPUSCULAR HEMOGLOBIN 26 pg (25-34); MEAN CORPUSCULAR HGB CONC 32 g/dL (32-36); MEAN CORPUSCULAR VOLUME 81 fL (80-99); MEAN PLATELET VOLUME 12.7 fL (9.0-12.2); MONOCYTES # (AUTO) 0.5 10^3/uL (0.0-1.0); MONOCYTES % (AUTO) 4 % (0-12); NEUTROPHILS # (AUTO) 8.1 10^3/uL (1.8-7.8); NEUTROPHILS % (AUTO) 73 % (42-75); PLATELET COUNT 177 10^3/uL (130-400); WHITE BLOOD COUNT 11.2 10^3/uL (4.3-11.0)
[2022-06-01 23:42] LABS: ALBUMIN 2.9 GM/DL (3.2-4.5)
[2022-06-01 23:43] LABS: POTASSIUM 3.4 MMOL/L (3.6-5.0)
[2022-06-01 23:44] LABS: CALCIUM 8.7 MG/DL (8.5-10.1)
[2022-06-01 23:45] LABS: TOTAL PROTEIN 5.8 GM/DL (6.4-8.2)
[2022-06-01 23:47] LABS: BILIRUBIN,TOTAL 0.3 MG/DL (0.1-1.0)
[2022-06-01 23:49] LABS: CREATININE SERUM 0.46 MG/DL (0.60-1.30)
[2022-06-02] MEDS ORDERED: D5 LR IV SOLUTION 1,000 ML IV SCH
[2022-06-02 03:22] VITALS: BP 115/69
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
== END 2022-06-02 03:28 | disposition home or self-care (01) ==
LOC: LDRP 21:15 → WSo 21:15
PROVIDERS: ATTEND Family Medicine
DX: O62.9 Abnormality of forces of labor, unspecified (principal); O26.899 Other specified pregnancy related conditions, unspecified trimester; R51.9 Headache, unspecified; R11.0 Nausea; Z3A.00 Weeks of gestation of pregnancy not specified
CPT/HCPCS: 36415; 76805; 76815; 80053; 81000; 85025; 87088; 96360; 96361; 99213

== ENCOUNTER 2022-06-20 16:22 | Outpatient (CLI) | payer MEDICARE, MEDICAID ==
[2022-06-20 16:45] VITALS: BP 129/66
[2022-06-20] MEDS ORDERED: hydrOXYzine (ATARAX) 10 MG TAB PO ONE (17:15)
[2022-06-20] MEDS ORDERED: hydrOXYzine (VISTARIL/ATARAX) 25 MG capsule/tablet ONE (17:21)
[2022-06-20] MEDS ORDERED: hydrOXYzine (VISTARIL/ATARAX) 25 MG capsule/tablet PO ONE (17:30)
[2022-06-20 17:37] LABS: CLARITY,URINE CLEAR; COLOR,URINE DARK YELLOW; GLUCOSE, URINE (UA) NEGATIVE (NEGATIVE); KETONES,URINE NEGATIVE (NEGATIVE); LEUKOCYTE ESTERASE ,URINE NEGATIVE (NEGATIVE); NITRITE,URINE NEGATIVE (NEGATIVE); PH,URINE 6.5 (5-9); PROTEIN,URINE TRACE (NEGATIVE)
[2022-06-20 17:45] LABS: BACTERIA,URINE FEW /HPF; BILIRUBIN,URINE 1+ (NEGATIVE); WBC,URINE 25-50 /HPF
[2022-06-20] MEDS ORDERED: ONDANSETRON 4 MG (ZOFRAN) ORAL DISSOLVE TAB PO ONE (18:30)
[2022-06-20] MEDS ORDERED: ONDANSETRON 4 MG (ZOFRAN) ORAL DISSOLVE TAB ONE (18:32)
[2022-06-20] MEDS ORDERED: CEPHALEXIN 250 MG (KEFLEX) CAP PO ONE (18:34)
[2022-06-20] MEDS: CEPHALEXIN 250 MG (KEFLEX) CAP PO SCH ×2 (18:36→18:38)
== END 2022-06-20 19:34 | disposition home or self-care (01) ==
LOC: LDRP 16:22 → WSo 16:22
PROVIDERS: ATTEND Family Medicine
DX: O42.913 Preterm premature rupture of membranes, unspecified as to length of time between rupture and onset of labor, third trimester (principal); Z3A.36 36 weeks gestation of pregnancy
CPT/HCPCS: 81000; 87088; 99214

== ENCOUNTER 2022-06-26 16:33 | Outpatient (CLI) | payer MEDICARE, MEDICAID ==
[~2022-06-26] VITALS: Ht 154.9 cm; Wt 84.2 kg
[2022-06-26 16:59] VITALS: BP 132/93
[2022-06-26 17:15] LABS: CLARITY,URINE CLEAR; COLOR,URINE DARK YELLOW; GLUCOSE, URINE (UA) NEGATIVE (NEGATIVE); KETONES,URINE NEGATIVE (NEGATIVE); LEUKOCYTE ESTERASE ,URINE 2+ (NEGATIVE); NITRITE,URINE NEGATIVE (NEGATIVE); PROTEIN,URINE TRACE (NEGATIVE)
[2022-06-26 17:28] LABS: BACTERIA,URINE MODERATE /HPF; SQUAMOUS EPITHELIAL CELL,UR 25-50 /HPF
[2022-06-26 17:30] LABS: RBC,URINE 0-2 /HPF
[2022-06-26 17:31] LABS: BILIRUBIN,URINE 1+ (NEGATIVE)
--- NOTE | 2022-06-27 08:13 | Physician Query-Final Dx ---
Clinic Account Progress/Dx Physician Query: Please give diagnosis Please include # weeks gestation Date of Service June 26, 2022 at 16:33 ,FebJune 27, 2022 08:13
== END 2022-06-26 17:51 ==
LOC: LDRP 16:33 → WSo 16:33
PROVIDERS: ATTEND Family Medicine
DX: O62.9 Abnormality of forces of labor, unspecified (principal); Z3A.00 Weeks of gestation of pregnancy not specified
CPT/HCPCS: 81000

== ENCOUNTER 2022-07-05 18:16 | Outpatient (CLI) | payer MEDICARE, MEDICAID ==
[~2022-07-05] VITALS: Ht 154.9 cm; Wt 83.7 kg
[2022-07-05 18:35] VITALS: BP 123/66
[2022-07-05 18:51] LABS: CLARITY,URINE SL CLOUDY; COLOR,URINE DARK YELLOW; GLUCOSE, URINE (UA) NEGATIVE (NEGATIVE); KETONES,URINE NEGATIVE (NEGATIVE); LEUKOCYTE ESTERASE ,URINE 1+ (NEGATIVE); NITRITE,URINE NEGATIVE (NEGATIVE); PH,URINE 5.5 (5-9); PROTEIN,URINE TRACE (NEGATIVE)
[2022-07-05 19:16] LABS: AMORPHOUS SEDIMENT,UR MOD AMOR URATES /LPF; BACTERIA,URINE MODERATE /HPF; CALCIUM OXALATE CRYSTALS,UR MODERATE /LPF; RBC,URINE RARE /HPF
[2022-07-05 19:17] LABS: BILIRUBIN,URINE 1+ (NEGATIVE)
== END 2022-07-05 20:00 | disposition home or self-care (01) ==
LOC: WSo 18:16 → LDRP 18:17 → WSo 20:00
PROVIDERS: ATTEND Family Medicine
DX: O62.9 Abnormality of forces of labor, unspecified (principal); Z3A.00 Weeks of gestation of pregnancy not specified
CPT/HCPCS: 81000; 87088; 99213

== ENCOUNTER 2022-07-09 17:40 | Inpatient (IN) | payer MEDICARE, MEDICAID ==
[~2022-07-09] VITALS: Ht 154.9 cm; Wt 82.1 kg
[2022-07-09] VITALS (30 sets, daily range): BP systolic 102–139; BP diastolic 56–91
[2022-07-09] MEDS ORDERED: LIDOCAINE 1% INJ 20 ML VIAL IJ PRN (18:15)
[2022-07-09] MEDS ORDERED: OXYTOCIN PRE-MIX DRIP 500 ML IV SCH (18:15)
[2022-07-09] MEDS ORDERED: MINERAL OIL 30 ML UDC TOP PRN (18:15)
[2022-07-09] MEDS: D5 LR IV SOLUTION 1,000 ML IV SCH (19:04)
[2022-07-09 19:32] LABS: LYMPHOCYTES # (AUTO) 1.6 10^3/uL (1.0-4.0); MEAN CORPUSCULAR HEMOGLOBIN 25 pg (25-34)
[2022-07-09 19:34] LABS: BASOPHILS % (AUTO) 0 % (0-10); EOSINOPHILS # (AUTO) 0.1 10^3/uL (0.0-0.3); EOSINOPHILS % (AUTO) 1 % (0-10); HEMATOCRIT 31 % (35-52); LYMPHOCYTES % (AUTO) 14 % (12-44); MEAN CORPUSCULAR HGB CONC 32 g/dL (32-36); MEAN CORPUSCULAR VOLUME 78 fL (80-99); MEAN PLATELET VOLUME 13.3 fL (9.0-12.2); MONOCYTES # (AUTO) 0.4 10^3/uL (0.0-1.0); MONOCYTES % (AUTO) 4 % (0-12); NEUTROPHILS # (AUTO) 8.8 10^3/uL (1.8-7.8); NEUTROPHILS % (AUTO) 80 % (42-75); PLATELET COUNT 180 10^3/uL (130-400); WHITE BLOOD COUNT 11.1 10^3/uL (4.3-11.0)
[2022-07-09 19:37] LABS: SMEAR SCAN COMMENT YES
[2022-07-09 20:00] LABS: CLARITY,URINE CLEAR; COLOR,URINE DARK YELLOW; GLUCOSE, URINE (UA) NEGATIVE (NEGATIVE); KETONES,URINE 1+ (NEGATIVE); LEUKOCYTE ESTERASE ,URINE 2+ (NEGATIVE); NITRITE,URINE NEGATIVE (NEGATIVE); PROTEIN,URINE NEGATIVE (NEGATIVE)
[2022-07-09 20:09] LABS: ALBUMIN 3.3 GM/DL (3.2-4.5); BILIRUBIN,TOTAL 0.8 MG/DL (0.1-1.0); CALCIUM 9.1 MG/DL (8.5-10.1); CREATININE SERUM 0.55 MG/DL (0.60-1.30); POTASSIUM 3.7 MMOL/L (3.6-5.0); TOTAL PROTEIN 6.6 GM/DL (6.4-8.2); URIC ACID 5.8 MG/DL (2.6-7.2)
[2022-07-09 20:37] LABS: BACTERIA,URINE TRACE /HPF; BILIRUBIN,URINE 1+ (NEGATIVE)
[2022-07-09] MEDS ORDERED: CATHETER FLUSH 10 ML SYR IV SCH (22:00)
[2022-07-09] MEDS ORDERED: fentaNYL 2 mcg/ml BUPIVA 0.125 100 ML ONE (22:09)
[2022-07-09] MEDS ORDERED: fentaNYL INJ 100 MCG/2 ML AMP ONE (22:20)
[2022-07-09] MEDS ORDERED: BUPIVACAINE 0.25% 10 ML (SENSORCAINE) VIAL ONE (22:20)
[2022-07-09] MEDS ORDERED: NALOXONE 0.4 MG/ML 1 ML (NARCAN) VIAL IV PRN (23:00)
[2022-07-09] MEDS ORDERED: LACTATED RINGERS 1,000 ML IV SCH (23:00)
[2022-07-09] MEDS ORDERED: diphenhydrAMINE 50 MG/ML INJ (BENADRYL) IV PRN (23:00)
[2022-07-09] MEDS ORDERED: ONDANSETRON 4 MG/2 ML (SDV) Z0FRAN IV PRN (23:00)
[2022-07-10] VITALS (45 sets, daily range): BP systolic 83–139; BP diastolic 44–84
[2022-07-10] MEDS: D5 LR IV SOLUTION 1,000 ML IV SCH (02:59)
[2022-07-10] MEDS: fentaNYL 2 mcg/ml BUPIVA 0.125 100 ML EPI SCH ×2 (03:01→07:33)
--- NOTE | 2022-07-10 07:57 | History & Physical-OB ---
OB - Chief Complaint & HPI Date/Time Date of Admission: Date of Admission: July 09, 2022 at 17:40 Date seen by a Provider: July 10, 2022 Time Seen by a Provider: 07:39 Chief Complaint/History OB-Reason for Admission/Chief: Induction of Labor (For low baseline and failed NST in clinic) Hx : 6 Hx Para: 2 Expected Date of Delivery: Jul 13, 2022 Gestational Age in Weeks: 39 Gestational Age in Days: 4 History of Labs O Neg, Ab neg, Rub Imm, HIV/RPR/HepB/C NR, GC/chyl neg Normal 1 hr GTT GBS Neg Allergies and Home Medications Allergies Coded Allergies: No Known Drug Allergies (Unverified , 07/15/19) Patient Home Medication List Home Medication List Reviewed: Yes No Active Prescriptions or Reported Meds OB - History Hx of Present Care: Yes Ultrasounds: Normal mid trimester US Obstetrical Complications: None Medical Complications: None Information Induced Hypertension: No Maternal Gestational Diabetes: No Hemorrhage: No Obstetrical History Hx : 6 Hx Para: 2 Hx # Term Pregnancies: 2 Number of Living Children: 2 Hx Total # of Abortions (Spona: 3 Delivery History Hx Blood Disorders: No Adverse Rxn to Tranfusion: No Patient Past Medical History N/A Social History/Family History Alcohol Use: Denies Use Recreational Drug Use: No Smoking Cessation: Current every day smoker 2nd Hand Smoke Exposure: No Immunizations Influenza Vaccine Up-to-Date: No; Not Current First/Initial COVID19 Vaccine: N/A Second COVID19 Vaccination: N/A Third COVID19 Vaccination Date: N/A Hepatitis A: Yes Hepatitis B: Yes Tetanus Booster (TDap): Less than 5yrs Rubella: immune RPR/VDRL: Negative GBS Status: Negative HBsAG: Negative OB - Admission Exam Physical Exam Vitals: Vital Signs 07/10/22 07/10/22 06:15 06:45 Temp 36.6 Pulse 78 Resp 16 B/P (MAP) 83/44 (57) Pulse Ox 97 O2 Delivery Room Air HEENT: NCAT Heart: Rhythm Normal Lungs: Clear Abdomen: Gravid Cervical Dilatation: 7cm Effacement: 75% Station: -1 Membranes: Intact Heart Rate: 120's Accelerations: Accelerations Present Decelerations: No Decelerations Short Term Variability: Present Retail Buyer Variability: Average (6-25) Contractions on Admission: < 5 Minutes Apart Labs Laboratory Tests Test 07/09/22 18:56 07/09/22 19:50 Range/Units White Blood Count 11.1 H 4.3-11.0 10^3/uL Red Blood Count 4.01 3.80-5.11 10^6/uL Hemoglobin 10.0 L 11.5-16.0 g/dL Hematocrit 31 L 35-52 % Mean Corpuscular Volume 78 L 80-99 fL Mean Corpuscular Hemoglobin 25 25-34 pg Mean Corpuscular Hemoglobin Concent 32 32-36 g/dL Red Cell Distribution Width 14.9 H 10.0-14.5 % Platelet Count 180 130-400 10^3/uL Mean Platelet Volume 13.3 H 9.0-12.2 fL Immature Granulocyte % (Auto) 1 % Neutrophils (%) (Auto) 80 H 42-75 % Lymphocytes (%) (Auto) 14 12-44 % Monocytes (%) (Auto) 4 0-12 % Eosinophils (%) (Auto) 1 0-10 % Basophils (%) (Auto) 0 0-10 % Neutrophils # (Auto) 8.8 H 1.8-7.8 10^3/uL Lymphocytes # (Auto) 1.6 1.0-4.0 10^3/uL Monocytes # (Auto) 0.4 0.0-1.0 10^3/uL Eosinophils # (Auto) 0.1 0.0-0.3 10^3/uL Basophils # (Auto) 0.0 0.0-0.1 10^3/uL Immature Granulocyte # (Auto) 0.1 0.0-0.1 10^3/uL Percent Immature Platelet Fraction 19.2 H 0.0-7.6 % Sodium Level 137 135-145 MMOL/L Potassium Level 3.7 3.6-5.0 MMOL/L Chloride Level 105 98-107 MMOL/L Carbon Dioxide Level 19 L 21-32 MMOL/L Anion Gap 13 5-14 MMOL/L Blood Urea Nitrogen 5 L 7-18 MG/DL Creatinine 0.55 L 0.60-1.30 MG/DL Estimat Glomerular Filtration Rate 131 BUN/Creatinine Ratio 9 Glucose Level 70 70-105 MG/DL Uric Acid 5.8 2.6-7.2 MG/DL Calcium Level 9.1 8.5-10.1 MG/DL Corrected Calcium 9.7 8.5-10.1 MG/DL Total Bilirubin 0.8 0.1-1.0 MG/DL Aspartate Amino Transf (AST/SGOT) 19 5-34 U/L Alanine Aminotransferase (ALT/SGPT) 19 0-55 U/L Alkaline Phosphatase 186 H 40-136 U/L Lactate Dehydrogenase 159 125-220 U/L Total Protein 6.6 6.4-8.2 GM/DL Albumin 3.3 3.2-4.5 GM/DL Syphilis Total Antibody Negative Negative Smear Scan YES Urine Color DARK YELLOW Urine Clarity CLEAR Urine pH 6.0 5-9 Urine Specific [place] 1.020 1.016-1.022 Urine Protein 21 H 6-12 MG/DL Urine Glucose (UA) NEGATIVE NEGATIVE Urine Ketones 1+ H NEGATIVE Urine Nitrite NEGATIVE NEGATIVE Urine Bilirubin 1+ H NEGATIVE Urine Urobilinogen 1.0 < = 1.0 MG/DL Urine Leukocyte Esterase 2+ H NEGATIVE Urine RBC (Auto) NEGATIVE NEGATIVE Urine RBC NONE /HPF Urine WBC 10-25 H /HPF Urine Squamous Epithelial Cells 2-5 /HPF Urine Crystals NONE /LPF Urine Bacteria TRACE /HPF Urine Casts NONE /LPF Urine Mucus MODERATE H /LPF Urine Culture Indicated YES Urine Creatinine 100 30-125 MG/DL Urine Protein/Creatinine Ratio 0.21 OB - Assessment/Plan/Diagnosis Assessment Assessment: active labor Admission Dx Third Trimester 39 week gestation Admission Status: Inpatient Order (span 2 midnights) Reason for Inpatient Admission: Labor and immediate post care Plan Other Plan 26 yo @ 39.4 wga here for IOL for low baseline and non reactive NST Plan - Epidural in place for pain control - GBS neg - Expectant management Copy Copies To 1: WILLIE NEWELL MD, HOLLY R MD July 10, 2022 07:57
[2022-07-10] MEDS: OXYTOCIN PRE-MIX DRIP 500 ML IV SCH ×2 (09:14→09:36)
--- NOTE | 2022-07-10 09:23 | OB Labor & Delivery Record ---
Vag Delivery Note Vag Delivery Note Date of Delivery: 07/10/22 Preoperative Diagnosis: Erum Poon is a (24 /Para 6 / 2, Gestational Age (wks)39.4 wga sent over from clinic with low baseline for IOL Postoperative Diagnosis: Same Surgeon: WILLIE NEWELL MD Brazing Machine Operator Helper: None Anesthesia: Epidural Delivery Type: @ 0909 Findings: Viable male infant, apgars 9/9, weight 7#5, 3305 grams Lacerations: none Intact placenta with 3 vessel cord. No nuchal cord, body cord or shoulder dys tocia Estimated Blood Loss: 125 ml Complications: None Condition: Stable Description of Procedure: The patient is a 26 year old female who presented for IOL for low baseline at term. She was admitted and informed consent was obtained. Her labor course was remarkable for pitocin augmentation. She progressed to complete dilatation and began to push. She was then set up for delivery. The infant's head was delivered atraumatically in the LEONARDA position. The shoulders and remainder of the infant's body were then delivered without difficulty. Upon delivery, the infant was vigorous and placed on maternal chest and the mouth and nares were bulb suctioned. After a 3 min delay cord was doubly clamped and cut by FOB and the infant remained on maternal chest and was attended to by nursery nurse. An intact placenta with 3-vessel cord delivered via [place] and there was found to be minimal bleeding.~ Vigorous fundal massage was performed and the fundus was found to be firm. IV oxytocin was given. Examination of the vagina and perineum revealed no lacerations that required repair. Following the repair, sponge, instrument and needle counts were correct. Mom and baby were both in stable condition in the labor suite. Vitals - Labs Vital Signs - I&O Vital Signs Date Time Temp Pulse Resp B/P (MAP) Pulse Ox O2 Delivery O2 Flow Rate FiO2 07/10/22 06:45 78 16 83/44 (57) 97 Room Air 07/10/22 06:30 76 16 89/50 (63) 97 Room Air 07/10/22 06:15 36.6 75 16 88/53 (65) 99 Room Air 07/10/22 06:00 70 16 113/66 (82) 99 Room Air 07/10/22 05:45 74 16 97/52 (67) 96 Room Air 07/10/22 05:30 73 16 99/53 (68) 97 Room Air 07/10/22 05:15 70 16 97/53 (68) 96 Room Air 07/10/22 05:00 72 16 117/70 (86) 97 Room Air 07/10/22 04:45 71 16 118/67 (84) 97 Room Air 07/10/22 04:30 69 18 117/67 (84) 98 Room Air 07/10/22 04:15 36.5 70 18 118/67 (84) 97 Room Air 07/10/22 04:00 70 18 109/60 (76) 97 Room Air 07/10/22 03:45 66 18 113/66 (82) 98 Room Air 07/10/22 03:30 66 18 115/67 (83) 98 Room Air 07/10/22 03:15 71 18 123/71 (88) 100 Room Air 07/10/22 03:00 73 18 103/58 (73) 100 Room Air 07/10/22 02:45 67 18 129/75 (93) 100 Room Air 07/10/22 02:30 81 18 113/64 (80) 98 Room Air 07/10/22 02:15 36.6 72 18 107/59 (75) 97 Room Air 07/10/22 02:00 74 18 112/61 (78) 98 Room Air 07/10/22 01:45 73 18 112/62 (79) 96 Room Air 07/10/22 01:30 72 18 120/66 (84) 98 Room Air 07/10/22 01:15 83 18 107/62 (77) 95 Room Air 07/10/22 01:00 85 18 116/65 (82) 97 Room Air 07/10/22 00:45 75 18 115/65 (82) 95 Room Air 07/10/22 00:30 69 18 116/69 (85) 95 Room Air 07/10/22 00:15 81 18 123/71 (88) 97 Room Air 07/10/22 00:00 74 18 122/72 (89) 95 Room Air 07/09/22 23:45 81 18 103/63 (76) 98 Room Air 07/09/22 23:40 75 18 108/64 (79) 98 Room Air 07/09/22 23:35 73 18 117/61 (79) 98 Room Air 07/09/22 23:27 76 18 129/65 (86) 98 Room Air 07/09/22 23:20 36.4 88 18 139/65 (89) 99 Room Air 07/09/22 23:15 88 18 132/61 (84) 99 Room Air 07/09/22 23:12 91 18 132/75 (94) 99 Room Air 07/09/22 23:09 87 18 137/60 (85) 99 Room Air 07/09/22 23:06 92 18 134/60 (84) 99 Room Air 07/09/22 23:03 82 18 117/56 (76) 99 Room Air 07/09/22 22:59 83 18 122/64 (83) 99 Room Air 07/09/22 22:56 87 18 123/63 (83) 99 Room Air 07/09/22 22:53 87 18 122/67 (85) 99 Room Air 07/09/22 22:47 82 18 122/75 (91) 100 Room Air 07/09/22 22:44 78 18 133/80 (97) 100 Room Air 07/09/22 22:41 79 18 132/80 (97) 100 Room Air 07/09/22 22:35 80 18 131/68 (89) 99 Room Air 07/09/22 22:30 79 18 135/80 (98) 100 Room Air 07/09/22 22:26 81 18 135/66 (89) 100 Room Air 07/09/22 22:15 75 18 130/91 (104) Room Air 07/09/22 21:15 72 18 127/80 (96) Room Air 07/09/22 21:00 36.7 72 18 105/69 (81) Room Air 07/09/22 20:45 74 16 102/58 (73) Room Air 07/09/22 20:30 82 16 128/76 (93) Room Air 07/09/22 20:25 36.5 78 16 99 Room Air 07/09/22 20:15 75 16 129/75 (93) Room Air 07/09/22 20:00 74 16 132/68 (89) Room Air 07/09/22 19:45 72 16 128/74 (92) Room Air 07/09/22 19:30 75 16 119/69 (86) Room Air 07/09/22 19:15 36.5 78 16 121/70 (87) Room Air Labs Laboratory Tests 07/09/22 18:56: White Blood Count 11.1H, Red Blood Count 4.01, Hemoglobin 10.0L, Hematocrit 31L, Mean Corpuscular Volume 78L, Mean Corpuscular Hemoglobin 25, Mean Corpuscular Hemoglobin Concent 32, Red Cell Distribution Width 14.9H, Platelet Count 180, Mean Platelet Volume 13.3H, Immature Granulocyte % (Auto) 1, Neutrophils (%) (Auto) 80H, Lymphocytes (%) (Auto) 14, Monocytes (%) (Auto) 4, Eosinophils (%) (Auto) 1, Basophils (%) (Auto) 0, Neutrophils # (Auto) 8.8H, Lymphocytes # (Auto) 1.6, Monocytes # (Auto) 0.4, Eosinophils # (Auto) 0.1, Basophils # (Auto) 0.0, Immature Granulocyte # (Auto) 0.1, Percent Immature Platelet Fraction 19.2H , Sodium Level 137, Potassium Level 3.7, Chloride Level 105, Carbon Dioxide Lev el 19L, Anion Gap 13, Blood Urea Nitrogen 5L, Creatinine 0.55L, Estimat Glom erular Filtration Rate 131, BUN/Creatinine Ratio 9, Glucose Level 70, Uric Acid 5.8, Calcium Level 9.1, Corrected Calcium 9.7, Total Bilirubin 0.8, Aspartate Amino Transf (AST/SGOT) 19, Alanine Aminotransferase (ALT/SGPT) 19, Alkaline Phosphatase 186H, Lactate Dehydrogenase 159, Total Protein 6.6, Albumin 3.3, Syphilis Total Antibody Negative, Smear Scan YES 07/09/22 19:50: Urine Color DARK YELLOW, Urine Clarity CLEAR, Urine pH 6.0, Urine Specific [place] 1.020, Urine Protein 21H, Urine Glucose (UA) NEGATIVE, Urine Ketones 1+H , Urine Nitrite NEGATIVE, Urine Bilirubin 1+H, Urine Urobilinogen 1.0, Urine Leukocyte Esterase 2+H, Urine RBC (Auto) NEGATIVE, Urine RBC NONE, Urine WBC 10- 25H, Urine Squamous Epithelial Cells 2-5, Urine Crystals NONE, Urine Bacteria TRACE, Urine Casts NONE, Urine Mucus MODERATEH, Urine Culture Indicated YES, Urine Creatinine 100, Urine Protein/Creatinine Ratio 0.21 WILLIE NEWELL MD July 10, 2022 09:23
[2022-07-10] MEDS ORDERED: BENZOCAINE/MENTHOL (DERMOPLAST) 56 ML CAN TP PRN (09:30)
[2022-07-10] MEDS ORDERED: WITCH HAZEL(TUCKS) 40 EA JAR TOP PRN (09:30)
[2022-07-10] MEDS: ACETAMINOPHEN 500 MG TAB (TYLENOL) PO SCH ×2 (10:03→16:42)
[2022-07-10] MEDS: IBUPROFEN 600 MG (MOTRIN) TAB PO SCH ×2 (10:03→16:41)
[2022-07-10] MEDS ORDERED: CATHETER FLUSH 10 ML SYR IV SCH (14:00)
[2022-07-10] MEDS ORDERED: KETOROLAC 30 MG/ML VIAL IVP ONE (19:30)
[2022-07-10] MEDS: DOCUSATE SODIUM 100 MG (COLACE) CAP PO SCH (19:52)
[2022-07-11 00:50] VITALS: BP 137/83
[2022-07-11] MEDS: IBUPROFEN 600 MG (MOTRIN) TAB PO SCH ×2 (00:55→08:25)
[2022-07-11] MEDS: ACETAMINOPHEN 500 MG TAB (TYLENOL) PO SCH ×2 (00:55→08:26)
[2022-07-11 03:55] VITALS: BP 109/66
[2022-07-11 06:32] LABS: BASOPHILS % (AUTO) 0 % (0-10); EOSINOPHILS # (AUTO) 0.1 10^3/uL (0.0-0.3); EOSINOPHILS % (AUTO) 2 % (0-10); HEMATOCRIT 25 % (35-52); LYMPHOCYTES # (AUTO) 1.7 10^3/uL (1.0-4.0); LYMPHOCYTES % (AUTO) 22 % (12-44); MEAN CORPUSCULAR HEMOGLOBIN 25 pg (25-34); MEAN CORPUSCULAR HGB CONC 32 g/dL (32-36); MEAN CORPUSCULAR VOLUME 79 fL (80-99); MEAN PLATELET VOLUME 13.3 fL (9.0-12.2); MONOCYTES # (AUTO) 0.4 10^3/uL (0.0-1.0); MONOCYTES % (AUTO) 5 % (0-12); NEUTROPHILS # (AUTO) 5.6 10^3/uL (1.8-7.8); NEUTROPHILS % (AUTO) 71 % (42-75); PLATELET COUNT 153 10^3/uL (130-400); WHITE BLOOD COUNT 7.9 10^3/uL (4.3-11.0)
--- NOTE | 2022-07-11 07:38 | Anesthesia-Regional Post-Op ---
Regional Patient Condition Mental Status: Alert, Oriented x3 Circulation: Same as Pre-Op Headache: Absent Sensation: Full Recovery Motor Block: Absent Post Op Complications Complications None Follow Up Care/Instructions Patient Instructions None needed. Anesthesia/Patient Condition Patient is doing well, no complaints, stable vital signs, no apparent adverse anesthesia problems. No complications reported per nursing. ROM DIAS CRNA Jul 11, 2022 07:38
--- NOTE | 2022-07-11 07:48 | Discharge Inst-Women's Service ---
Discharge Inst-Women's Serv Depart Medication/Instructions New, Converted or Re-Newed RX: Other Instructions May take ibuprofen [id number] 200 mg tablets and take 2 or 3 every 6 hours as needed for cramps Problems Reviewed?: Yes Consults/Follow Up Additional Follow Up: Yes (Dr. Gilbert in 6 weeks) Diet Discharge Diet: Regular Diet Return to The Hospital For: As below Symptoms to Report to : Bleeding Excessive, Fever Over 101 Degrees F, Vaginal Discharge Foul For Any Problems or Questions: Contact Your Physician IRIS WOOTEN MD Jul 11, 2022 07:48
--- NOTE | 2022-07-11 07:54 | Discharge Summary ---
Diagnosis/Chief Complaint Date of Admission July 09, 2022 at 17:40 Date of Discharge July 11, 2022 Admission Diagnosis Admission Diagnosis 1. Intrauterine at 39 weeks 4 days gestation 2. Anemia Discharge Diagnosis 1. Intrauterine at 39 weeks 4 days gestation 2. Anemia Chief Complaint/HPI Chief Complaint/HPI 26-year-old 6 now P3 L3 who initially presented to labor and delivery during the evening of July 09 for induction of labor. Her GBS status was negative. Discharge Summary-OBS Procedures 1. Epidural per anesthesia 2. Spontaneous vaginal delivery Discharge Physical Examination Allergies: Coded Allergies: No Known Drug Allergies (Unverified , 07/15/19) Vitals & I&Os Vital Sign - Last 12Hours Date Time Temp Pulse Resp B/P (MAP) Pulse Ox O2 Delivery O2 Flow Rate FiO2 07/11/22 03:55 36.0 79 18 109/66 (80) 99 Room Air General Appearance: Alert, Oriented X3 Respiratory: Clear to Auscultation Cardiovascular: Regular Rate Abdominal: Soft Hospital Course Was the Problem List Reviewed?: Yes following admission she underwent induction of labor. She went on to deliver in the morning of July 10, 2022. Delivery was spontaneous vaginal and there was no lacerations. See labor and delivery note for full details. Following delivery she underwent routine care orders. She had no complications during the remainder of hospital stay. She was noted to have a hemoglobin of 8.0 in the morning of July 11 but this was without symptoms of dizziness. She was eager for dismissal and ready for dismissal during the late morning of July 11. She will follow up with Dr. Gilbert in 6 weeks. Labs Laboratory Tests 07/11/22 06:18: White Blood Count 7.9, Red Blood Count 3.18L, Hemoglobin 8.0L, Hematocrit 25L, Mean Corpuscular Volume 79L, Mean Corpuscular Hemoglobin 25, Mean Corpuscular Hemoglobin Concent 32, Red Cell Distribution Width 14.8H, Platelet Count 153, Mean Platelet Volume 13.3H, Immature Granulocyte % (Auto) 1, Neutrophils (%) (Auto) 71, Lymphocytes (%) (Auto) 22, Monocytes (%) (Auto) 5, Eosinophils (%) (Auto) 2, Basophils (%) (Auto) 0, Neutrophils # (Auto) 5.6, Lymphocytes # (Auto) 1.7, Monocytes # (Auto) 0.4, Eosinophils # (Auto) 0.1, Basophils # (Auto) 0.0, Immature Granulocyte # (Auto) 0.1, Percent Immature Platelet Fraction 17.2H Discharge Instructions to patient/family Please see electronic discharge instructions given to patient. Discharge Medications Reviewed and agree with Discharge Medication list on patient's Discharge Instruction sheet IRIS WOOTEN MD Jul 11, 2022 07:54
[2022-07-11] MEDS ORDERED: RHO(D) IMMUNE GLOBULIN 300 MCG/2 ML SYRINGE ONE ×2 (08:19→09:17)
[2022-07-11 08:25] VITALS: BP 109/59
[2022-07-11] MEDS: DOCUSATE SODIUM 100 MG (COLACE) CAP PO SCH (08:26)
[2022-07-11] MEDS ORDERED: RHO(D) IMMUNE GLOBULIN 300 MCG/2 ML SYRINGE IM/IV NR (10:00)
== END 2022-07-11 13:00 | disposition home or self-care (01) | DRG 807 ==
LOC: LDRP 17:40
PROVIDERS: ADMIT Family Medicine; ATTEND Family Medicine
PROC: 10E0XZZ Delivery of Products of Conception, External Approach (ICD-10-PCS; principal; 2022-07-10)
DX: O99.02 Anemia complicating childbirth (principal); Z37.0 Single live birth; O99.334 Smoking (tobacco) complicating childbirth; F17.210 Nicotine dependence, cigarettes, uncomplicated; Z3A.39 39 weeks gestation of pregnancy; D64.9 Anemia, unspecified
CPT/HCPCS: 36415; 80053; 81000; 82570; 83033; 83615; 84156; 84550; 85025; 86780; 86850; 86900; 86901; 87088